=== PATIENT | female | born 1960 | race Caucasian/White ===

== ENCOUNTER 2017-10-13 12:19 | Emergency (ER) | payer BC ==
[~2017-10-13 12:19] MED LIST: BIOTIN2500 MCG; CARAFATE1 G1; CITRACAL D + H1 EACH PO; COLESTIPOL HCL1 GM PO; CRANBERRY200 MG PO; CRANBERRY500 MG PO; CYCLOBENZAPRINE; DIPHENHYDRAMINE25 M2; DIPHENOXYLATE-1 EAC1 PO; ERYTHROMYCIN 250 MG; FOLIC ACID1 MG PO; HYDROCODON-ACE1 EAC9; IMITREX; MAGNESIUM OXID400 MG PO; METHOTREXATE; METOPROLOL TART50 MG PO; NITROFURANTOIN100 M1 PO; PENNSAID 2%; PHENAZOPYRIDIN100 MG PO; THYROXINE 137 MCG; VITAMIN B-121000 MCG PO; VITAMIN B-1250 MG PO; VITAMIN D31000 UNI2 PO; Z ALPRAZOLAM PO; Z.0.DEPO-PROVE150 MG; Z.0.DEXILANT60 MG PO; Z.0.HYDROXYCHLOROQ20 PO; Z.0.KLOR-CON 1010 ME PO; Z.0.LEXAPRO20 MG PO; Z.0.PHENERGAN25 M1 PO; Z.0.PREDNISONE5 MG PO; Z.0.SYNTHROID137 MCG PO; Z.0.ZOFRAN8 MG; ZOFRAN ODT4 MG SL; ZOLPIDEM TARTRAT5 MG PO; [UNRECOGNIZED DRUG - OTHER]; [UNRECOGNIZED DRUG - OTHER]; [UNRECOGNIZED DRUG - OTHER]; [UNRECOGNIZED DRUG - OTHER]
== END 2017-10-13 13:52 | disposition left against medical advice (07) ==
LOC: ER 12:19
DX: Z53.21 Procedure and treatment not carried out due to patient leaving prior to being seen by health care provider (principal)

== ENCOUNTER → 2019-02-04 | Day surgery (SDC) | payer BC ==
[~2019-02-04] MED LIST changes: +CEPHALEXIN250 MG PO; +ERYTHROMYCIN250 MG PO; +FENTANYL CITRATE/PF 100MCG/2 ML INJ ONE; +HEPARIN 500 UNITS/5ML MDV INJ ONE; +HYOSCYAMINE SULFATE 0.5 MG/ML INJ ONE; +LEVOTHYROXINE75 MCG PO; +LIDOCAINE HCL 2% LOCAL INJ 5 ML SDV VIAL INJ ONE; +MAGNESIUM500 MG PO; +MIDAZOLAM HCL 2 MG/2 ML VIAL ONE; +MYRBETRIQ50 MG PO; +PROPOFOL IV EMULSION 10 MG/ML 50 ML VIAL ONE; +VITAMIN C1000 MG PO
--- OUTSIDE RECORDS SUMMARY | 2019-02-04 12:28 | XMS REPORT | Clinical Summary ---
Author Author [facility] Address Unknown Phone Unavailable Care Team Providers Care Global Compensation Manager Name Role Phone Kris Brunner MD PCP Allergies Comments Active Allergy Reactions Severity Noted Date Clarithromycin 10/13/2017 Codeine 10/13/2017 Morphine 10/13/2017 Penicillin 10/13/2017 Metoclopramide Hcl 10/13/2017 Medications End Date Status Medication Sig Dispensed Refills Start Date Active ascorbic acid, vitamin C, Take 1,000 mg 0 (vitamin C) 1000 MG by mouth tablet daily. Active MULTIVIT WITH Take by 0 CALCIUM,IRON,MIN (WOMEN'S mouth. DAILY MULTIVITAMIN ORAL) Active CALCIUM CARBONATE/VITAMIN Take by 0 D3 (CALCIUM 500 + D, D3, mouth. ORAL) Active erythromycin base Take 250 mg 0 (E-MYCIN) 250 MG tablet by mouth 4 (four) times a day. Active hydroxychloroquine Take 200 mg 0 (PLAQUENIL) 200 mg tablet by mouth 2 (two) times a day. Active colestipol (COLESTID) 1 Take 1 g by 0 gram tablet mouth daily. Active predniSONE (DELTASONE) 5 Take 5 mg by 0 mg tablet mouth daily. Active dexlansoprazole Take 60 mg by 0 (DEXILANT) 60 mg capsule mouth 2 (two) times a day. Active levothyroxine (SYNTHROID, Take 137 mcg 0 LEVOXYL) 137 mcg tablet by mouth daily. 2 tablets on Friday and Friday. Active MIRABEGRON ORAL Take 50 mg by 0 mouth daily. Active nitrofurantoin Take 100 mg 0 (MACRODANTIN) 100 MG by mouth capsule daily. Active escitalopram (LEXAPRO) 20 Take 20 mg by 0 MG tablet mouth daily. Active folic acid (FOLVITE) 1 MG Take 1 mg by 0 tablet mouth 2 (two) times a day. Active ALPRAZolam (XANAX) 1 MG Take 1 mg by 0 tablet mouth as needed for anxiety. 1-2 tablets daily as needed. Active metoprolol tartrate Take 50 mg by 0 (LOPRESSOR) 50 mg tablet mouth 2 (two) times a day. Active HYDROcodone-acetaminophen Take 1 tablet 0 (NORCO) 10-325 mg per by mouth tablet every 8 (eight) hours as needed for moderate pain. Active promethazine (PHENERGAN) Take 25 mg by 0 25 MG tablet mouth every 6 (six) hours. Active phenazopyridine Take 100 mg 0 (PYRIDIUM) 100 MG tablet by mouth as needed for bladder spasms. Active diphenhydrAMINE Take 25 mg by 0 (BENADRYL) 25 mg tablet mouth nightly as needed for sleep. Active magnesium gluconate Take 500 mg 0 (MAGONATE) 500 mg tablet by mouth tablet daily. Active diclofenac sodium Apply 0 (PENNSAID) 20 mg/gram topically 2 /actuation(2 %) solution (two) times a in metered-dose pump day. Active biotin 10,000 mcg capsule Take 10,000 0 mcg by mouth nightly. Active THIAMINE HCL (VITAMIN B-1 Take by 0 ORAL) mouth. Active CHOLECALCIFEROL, VITAMIN Take by 0 D3, (VITAMIN D3 ORAL) mouth. Active CYANOCOBALAMIN, VITAMIN Take by mouth 0 B-12, (VITAMIN B-12 ORAL) daily. Active Problems Problem Noted Date Morbid obesity 10/20/2017 Hypokalemia 10/15/2017 Hypocalcemia 10/15/2017 Pulmonary embolism 10/15/2017 Cardiac arrest 10/15/2017 Overview: x3 Cancer 10/15/2017 Overview: breast Intractable vomiting 10/15/2017 Intractable vomiting with nausea 10/13/2017 Encounters Care Team Description Date Type Specialty Hong Lam MD Unspecified fracture of the lower end of right radius, sequela (Primary Dx); Unspecified fracture of lower end of right ulna, sequela 01/28/2019 Transcribe Physical Therapy Orders Hong Lam MD Closed fracture of right distal radius and ulna, sequela (Primary Dx) 11/11/2018 Transcribe Physical Therapy Orders Erika Ball MD Primary osteoarthritis of hand, unspecified laterality (Primary Dx); Finger joint replacement of right hand 09/03/2018 Transcribe Physical Therapy Orders Erika Ball MD Osteoarthritis of carpometacarpal joint (Primary Dx) 07/23/2018 Transcribe Physical Therapy Orders Erika Ball MD Pain of right thumb (Primary Dx) 06/17/2018 Transcribe Physical Therapy Orders Erika Ball MD Fracture of unspecified carpal bone, left wrist, initial encounter for closed fracture (Primary Dx) 04/13/2018 Transcribe Physical Therapy Orders Erika Ball MD Left wrist fracture, closed, initial encounter (Primary Dx) 03/18/2018 Transcribe Physical Therapy Orders after 02/03/2018 Family History Medical History Relation Name Comments Arthritis Brother Arthritis Father Early Father Hypertension Father Stroke Father Arthritis Maternal Grandfather Arthritis Maternal Grandmother Arthritis Mother Depression Mother Diabetes Mother Hearing loss Mother Heart disease Mother Hyperlipidemia Mother Hypertension Mother Miscarriages / Mother Stillbirths Stroke Mother Arthritis Paternal Grandfather Arthritis Paternal Grandmother Cancer Paternal Grandmother Arthritis Sister Depression Sister Relation Name Status Comments Brother Father Maternal Grandfather Maternal Grandmother Mother Paternal Grandfather Paternal Grandmother Sister Social History Date Tobacco Use Types Packs/Day Years Used Never Smoker Smokeless Tobacco: Never Used Alcohol Use Drinks/Week oz/Week Comments No Sex Assigned at Date Recorded Not on file Industry Job Start Date Occupation Not on file Not on file Not on file Travel End Travel History Travel Start No recent travel history available. Last Filed Vital Signs Not on file Plan of Treatment Care Team Description Date Type Specialty Hong Lam MD [address] [place] [address] [id number] Benson Childs OT 02/05/2019 Office Visit Physical Therapy Health Maintenance Due Date Last Done Comments CERVICAL CANCER SCREENING 1982 BREAST CANCER SCREENING 2011 COLON CANCER SCREENING 2011 SHINGLES VACCINES (#1) 2011 INFLUENZA VACCINE 04/29/2019 Results Not on fileafter 02/03/2018 Insurance Payer Benefit Subscriber ID Type Phone Address Plan / Group BCBS ANTHEM xxxxxxxxxxxx PPO BLUE CROSS Advance Directives Patient has advance care planning documents on file. For more information, sally duran contact: Aaron Ortiz [address] [place] [address]
--- OUTSIDE RECORDS SUMMARY | 2019-02-04 12:30 | XMS REPORT | CCD ---
Author Author Auto Generated Organization [facility] Address Unknown Phone Unavailable Care Team Providers Care Recreation Program Specialist Name Role Phone Peggy Maria CP Allergies, Adverse Reactions, Alerts Substance Reaction Status Biaxin Active codeine Active morphine Active Paper Tape Active penicillins Active Reglan Active Problem List Condition Effective Dates Status Acute renal failure Active Alteration in comfort: chronic pain Active Anemia Active Back pain Active Debility Active Hemiparesis Active Hypokalemia Active Hypothyroidism Active Impaired sensation Active Itching Active Lupus Active Malnutrition Active Nausea and vomiting Active Obesity Active Pulmonary embolus Active Renal insufficiency Active Respiratory failure Active Vaginal fistula Active VRE1 Active 1Problem added by Discern Expert. Vital Signs Most recent to oldest [Reference Range]: 1 2 Systolic Blood Pressure [90-140 mmHg] 113 mmHg (03/18/2012 13:16:00) 128 mmHg (03/02/2012 11:48:00) Diastolic Blood Pressure [60-90 mmHg] 56 mmHg *LOW* (03/18/2012 13:16:00) 78 mmHg (03/02/2012 11:48:00) Peripheral Pulse Rate [60-100 bpm] 59 bpm *LOW* (03/18/2012 13:16:00) 80 bpm (03/02/2012 11:48:00)
--- OUTSIDE RECORDS SUMMARY | 2019-02-04 12:30 | XMS REPORT | CCD ---
Author Author Auto Generated Organization [facility] Address Unknown Phone Unavailable Care Team Providers Care Manager Strategy & Account Name Role Phone Peggy Maria CP Allergies, [...] recent to oldest [Reference Range]: 1 2 3 Systolic Blood Pressure [90-140 mmHg] 133 mmHg (01/13/2012 15:02:00) 122 mmHg (01/08/2012 12:27:00) 129 mmHg (12/30/2011 12:38:00) Diastolic Blood Pressure [60-90 mmHg] 76 mmHg (01/13/2012 15:02:00) 72 mmHg (01/08/2012 12:27:00) 81 mmHg (12/30/2011 12:38:00) Peripheral Pulse Rate [60-100 bpm] 63 bpm (01/13/2012 15:02:00) 69 bpm (01/08/2012 12:27:00) 65 bpm (12/30/2011 12:38:00)
--- OUTSIDE RECORDS SUMMARY | 2019-02-04 12:30 | XMS REPORT | CCD ---
Author Author Auto Generated Organization [facility] Address Unknown Phone Unavailable Care Team Providers Care Scientific Systems Analyst Name Role Phone Peggy Maria CP Allergies, [...] 1 2 Systolic Blood Pressure [90-140 mmHg] 126 mmHg (02/03/2012 12:05:00) 127 mmHg (01/22/2012 10:34:00) Diastolic Blood Pressure [60-90 mmHg] 71 mmHg (02/03/2012 12:05:00) 72 mmHg (01/22/2012 10:34:00) Peripheral Pulse Rate [60-100 bpm] 64 bpm (02/03/2012 12:05:00) 79 bpm (01/22/2012 10:34:00)
--- OUTSIDE RECORDS SUMMARY | 2019-02-04 12:30 | XMS REPORT | CCD ---
Author Author Auto Generated Organization [facility] Address Unknown Phone Unavailable Care Team Providers Care Inspector And Clipper Name Role Phone Kvng Perry RP Allergies, Adverse Reactions, Alerts Substance Reaction Status [...]
--- OUTSIDE RECORDS SUMMARY | 2019-02-04 12:30 | XMS REPORT | CCD ---
Author Author Auto Generated Organization [facility] Address Unknown Phone Unavailable Care Team Providers Care Fishing Hand Name Role Phone Peggy Maria CP Allergies, [...] 1 2 Systolic Blood Pressure [90-140 mmHg] 110 mmHg (11/19/2011 13:21:00) 118 mmHg (11/19/2011 10:03:00) Diastolic Blood Pressure [60-90 mmHg] 72 mmHg (11/19/2011 13:21:00) 75 mmHg (11/19/2011 10:03:00) Peripheral Pulse Rate [60-100 bpm] 89 bpm (11/19/2011 13:21:00) 86 bpm (11/19/2011 10:03:00) Results URINALYSIS Most recent to oldest [Reference Range]: 1 UA Turbidity [Clear] Clear (11/15/2011 11:05:00) UA Color [Yellow] Yellow *NA* (11/15/2011 11:05:00) UA pH [5.0-8.0] 5.0 (11/15/2011 11:05:00) UA Spec Grav [<=1.030] 1.009 (11/15/2011 11:05:00) UA Glucose [Negative mg/dL] Negative mg/dL *NA* (11/15/2011 11:05:00) UA Blood [Negative] Trace *ABN* (11/15/2011 11:05:00) UA Ketones [Negative mg/dL] Negative mg/dL *NA* (11/15/2011 11:05:00) UA Protein [Negative mg/dL] Negative mg/dL (11/15/2011 11:05:00) UA Urobilinogen [0.1-1.0 mg/dL] <=1.0 mg/dL *NA* (11/15/2011 11:05:00) UA Bili [Negative] Negative *NA* (11/15/2011 11:05:00) UA Leuk Est [Negative] Negative (11/15/2011 11:05:00) UA Nitrite [Negative] Negative (11/15/2011 11:05:00) UA WBC [0-5 /HPF] 2 /HPF (11/15/2011 11:05:00) UA RBC [0-2 /HPF] 1 /HPF (11/15/2011 11:05:00) UA Sq Epi [Few /LPF] Occasional /LPF *NA* (11/15/2011 11:05:00) UA Mucus [None Seen /LPF] Few /LPF *NA* (11/15/2011 11:05:00)
--- OUTSIDE RECORDS SUMMARY | 2019-02-04 12:30 | XMS REPORT | CCD ---
Author Author Auto Generated Organization [facility] Address Unknown Phone Unavailable Care Team Providers Care Hebrew Teacher Name Role Phone Genevieve Carrasco RP Allergies, Adverse Reactions, Alerts Substance Reaction [...] VRE1 Active 1Problem added by Discern Expert. Medications Medication Instructions Start Date End Date Status Benadryl 25 mg oral PO, BID, Substitution Allowed, prn 01/27/2012 Ordered capsule prn oxaprozin 600 mg PO, BID, Substitution Allowed 01/27/2012 Ordered oral tablet multivitamin with PO, Daily, Substitution Allowed, 01/27/2012 Ordered minerals Multiple Maintenance Vitamins with Zinc oral capsule clobetasol topical Substitution Allowed, to face BID 01/27/2012 Ordered 0.05% cream to face BID diphenoxylate Substitution Allowed, 1 tablet QID 01/27/2012 Ordered for diarrhea PRN 1 tablet QID for diarrhea PRN Dexilant 60 mg oral PO, BID, Substitution Allowed 01/27/2012 Ordered delayed release capsule nystatin topical Substitution Allowed, as needed 01/27/2012 Ordered 100,000 units/g as needed cream carisoprodol 350 mg PO, TID, Substitution Allowed 01/27/2012 Ordered oral tablet OxyContin 10 mg oral 10 mg, 1 tab, PO, TID, Substitution 01/27/2012 Ordered tablet, extended Allowed, ERTAB release folic acid 1 mg oral PO, Daily, Substitution Allowed 01/27/2012 Ordered tablet Vitamin B12 Substitution Allowed, self admin. 01/27/2012 Ordered injections SC weekly of 1ml self admin. injections SC weekly of 1ml Estrace Substitution Allowed, TID as needed 01/27/2012 Ordered TID as needed methotrexate Substitution Allowed, 0.03 ml 01/27/2012 Ordered weekly injection SC, pt. self administers 0.03 ml weekly injection SC, pt. self administers Vital Signs Most recent to oldest [Reference Range]: 1 Height 165.10 cm (01/27/2012 14:51:00) Systolic Blood Pressure [90-140 mmHg] 110 mmHg (01/27/2012 14:51:00) Diastolic Blood Pressure [60-90 mmHg] 68 mmHg (01/27/2012 14:51:00) Respiratory Rate [14-20 BRMIN] 18 BRMIN (01/27/2012 14:51:00) Peripheral Pulse Rate [60-100 bpm] 81 bpm (01/27/2012 14:51:00) Weight 104.545 kg (01/27/2012 14:51:00)
--- OUTSIDE RECORDS SUMMARY | 2019-02-04 12:30 | XMS REPORT ---
Author Amadeo Mcdaniel [facility] [employer] Address Unknown Phone Unavailable Care Team Providers Care Manufacturing Laborer Name Role Phone Amadeo [place] CP Unavailable Allergies, Adverse Reactions, Alerts Substance Reaction Event Type paper tape Info Not Available Non Drug Allergy penicillin Info Not Available Non Drug Allergy morphine Info Not Available Non Drug Allergy codiene Info Not Available Non Drug Allergy biaxin Info Not Available Non Drug Allergy Problems Problem Type Condition Code Onset Dates Condition Status Assessment Age-related osteoporosis without current pathological fracture M81.0 Active Assessment Lupus M32.9 Active Assessment Rheumatoid arthritis of multiple sites with negative rheumatoid factor M06.09 Active Assessment Encounter for long-term (current) use of other high-risk medications Z79.899 Active Problem Polyarthritis M13.0 Active Problem Left hip pain M25.552 Active Problem Rheumatoid arthritis of multiple sites with negative rheumatoid factor M06.09 Active Problem Encounter for long-term (current) use of other high-risk medications Z79.899 Active Problem Vitamin D deficiency E55.9 Active Problem Age-related osteoporosis without current pathological fracture M81.0 Active Problem Lupus M32.9 Active Medications Medication Code System Code Instructions Start Date End Date Status Dosage PredniSONE [facility] 68532382331 5MG Orally once a day Active take 1 tablet daily with food or milk Macrobid [facility] [address]-87 100 MG Orally once a day Active 1 capsule with food Erythromycin Ethylsuccinate [facility] [address]-86 400 MG Orally four times a day Active 1 tablet Potassium Chloride CR ND 0 10 MEQ Orally every day Active 2 tablets Vitamin B-[address] [facility] [address]-74 250 MG Orally Active as directed Citracal + D [facility] [address]-85 315-200 MG-UNIT Orally Twice a day Active 1 tablet with meals Prolia [facility] [address]-46 60 MG/ML Subcutaneous Q 6 MONTHS Active 1 injection Nystatin [facility] [address]-40 659946 UNIT/GM Externally as needed Active 1 application to affected area Folic Acid [facility] 33941048127 1MG Orally twice a day Jun 14, 2017 Active 1 tablet Lexapro [facility] [address]-80 20 MG Orally Once a day Active 1 tab Xanax [facility] [address]-74 1 MG Orally once a day Active 1 tablet Vitamin B-[address] [facility] [address]-34 1000 MCG Orally Once a day Active 1 tablet Vitamin C [facility] 74956-96156 500 MG Orally once a day Active as directed Magnesium [facility] [address]47-[address]244 400 MG Orally Active as directed Zofran [facility] [address]-27 Orally as needed Active 1 tablet Madras [facility] [address]-82 10-325 MG Orally every 6 hrs Active 1 tablet as needed Vitamin D [facility] [address]-99 1000 UNIT Orally Once a day Active 1 tablet Clobetasol Propionate [facility] [address]-46 0.05 % Externally Twice a day Jun 14, 2017 Active 1 application to affected area Hydroxychloroquine Sulfate [facility] 37739001286 200 MG Orally twice a day Active take 1 tablet twice a day Dexilant [facility] [address]-35 60 MG Orally twice a day Active 1 capsule Pennsaid [facility] [address]-90 2 % Transdermal Twice a day December 31, 2016 Apr 30, 2017 Active 2 applications to affected area Benadryl [facility] [address]-78 25 MG Orally as needed Active 2 tablets Synthroid [facility] [address]-53 137 MCG Orally Once a day Active 1 tablet every morning on an empty stomach Promethazine HCl [facility] [address]-62 25 MG Orally q6hrs prn Active 1 tablet Metoprolol Tartrate [facility] [address]-27 50 MG Orally twice a day Active 1 tablet Vital Signs Date/Time: March 17, 2017 BMI 44.97 Index Weight 262 lbs Height 64 in Temperature 98.3 F Cardiac Monitoring Heart Rate 80 /min Blood Pressure Diastolic 72 mm Hg Blood Pressure Systolic 112 mm Hg Results No Known Results Summary Purpose eClinicalWorks Submission
--- OUTSIDE RECORDS SUMMARY | 2019-02-04 12:30 | XMS REPORT ---
Author Author Amadeo [place] [facility] [employer] Address Unknown Phone Unavailable Care Team Providers Care Customs Compliance Manager Name Role Phone Amadeo [place] CP Unavailable Allergies, Adverse Reactions, Alerts Substance Reaction Event Type penicillin Info Not Available Non Drug Allergy morphine Info Not Available Non Drug Allergy codiene Info Not Available Non Drug Allergy biaxin Info Not Available Non Drug Allergy paper tape Info Not Available Non Drug Allergy Problems Problem Type Condition Code Onset Dates Condition Status Assessment Raynauds phenomenon without gangrene I73.00 Active Assessment Lupus M32.9 Active Assessment Age-related osteoporosis without current pathological fracture M81.0 Active Assessment Encounter for long-term (current) use of other high-risk medications Z79.899 Active Assessment Rheumatoid arthritis of multiple sites with negative rheumatoid factor M06.09 Active Problem Polyarthritis M13.0 Active Problem Left [...] Instructions Start Date End Date Status Dosage Forteo [facility] [address]-10 600 MCG/2.4ML Subcutaneous Once a day Jul 17, 2017 January 13, 2018 Active 0.08 ml Vitamin C [facility] [address]846-77507 500 MG Orally once a day Active as directed Vitamin B-12 [facility] [address]-16 1000 MCG Orally Once a day Active 1 tablet Lexapro [facility] [address]-29 20 MG Orally Once a day Active 1 tab Potassium Chloride CR [facility] 0 10 MEQ Orally every day Active 2 tablets Macrobid [facility] [address]-40 100 MG Orally once a day Active 1 capsule with food Dexilant [facility] [address]-79 60 MG Orally twice a day Active 1 capsule Citracal + D [facility] [address]-65 315-200 MG-UNIT Orally Twice a day Active 1 tablet with meals Benadryl [facility] [address]-99 25 MG Orally as needed Active 2 tablets Pyridium [facility] [address]-26 100 MG Orally QID Active 1 tablet Prolia [facility] [address]-62 60 MG/ML Subcutaneous Q 6 MONTHS Active 1 injection PredniSONE [facility] 21125577653 5MG Orally once a day Active take 1 tablet daily with food or milk Zofran [facility] [address]-96 Orally as needed Active 1 tablet Randall [facility] [address]-62 10-325 MG Orally every 6 hrs Active 1 tablet as needed Vitamin B-1 [facility] [address]-11 250 MG Orally Active as directed Magnesium [facility] 46[address]-24150 400 MG Orally Active as directed Promethazine HCl [facility] [address]-70 25 MG Orally q6hrs prn Active 1 tablet Nystatin [facility] [address]-73 140335 UNIT/GM Externally as needed Active 1 application to affected area Metoprolol Tartrate [facility] [address]-11 50 MG Orally twice a day Active 1 tablet Xanax [facility] [address]-47 1 MG Orally once a day Active 1 tablet Cipro [facility] [address]-17 500 MG Orally Twice a day Active 1 tablet Vitamin D [facility] [address]-64 1000 UNIT Orally Once a day Active 1 tablet Synthroid [facility] [address]-64 137 MCG Orally Once a day Active 1 tablet every morning on an empty stomach Erythromycin Ethylsuccinate [facility] [address]-63 400 MG Orally four times a day Active 1 tablet Pennsaid [facility] [address]-44 2 % Transdermal Twice a day April 22, 2017 Active 2 applications to affected area Folic Acid [facility] [address]-80 1 MG Orally Once a day January 13, 2018 Active 1 tablet Hydroxychloroquine Sulfate [facility] [address]-34 200 MG Orally twice a day January 13, 2018 Active 1 tablet with food or milk Vital Signs Date/Time: Jul 17, 2017 BMI 46.01 Index Weight 268.1 lbs Height 64 in Temperature 99.1 F Cardiac Monitoring Heart Rate 72 /min Blood Pressure Diastolic 80 mm Hg Blood Pressure Systolic 124 mm Hg Results No Known Results Summary Purpose eClinicalWorks Submission
--- OUTSIDE RECORDS SUMMARY | 2019-02-04 12:30 | XMS REPORT | CCD ---
Author Author Auto Generated Organization [facility] Address Unknown Phone Unavailable Care Team Providers Care Production Control Clerk Name Role Phone Michele Pascual CP Allergies, Adverse Reactions, Alerts Substance Reaction Status Biaxin Active codeine Active morphine Active Paper Tape Active penicillins Active Reglan Active Problem List Condition Effective Dates Status Acute renal failure Active Alteration in comfort: chronic pain Active Anemia Active Back pain Active Debility Active Hemiparesis Active Hypokalemia Active Hypothyroidism Active Impaired sensation Active Itching Active Lupus Active Lupus Resolved Malnutrition Active Nausea and vomiting Active Obesity Active Pulmonary embolus Active Renal insufficiency Active Respiratory failure Active Vaginal fistula Active VRE1 Active 1Problem added by Discern Expert. Medications Medication Instructions Start Date End Date Status hydromorphone 1.5 mg, Route: IVP, ONCE, Dosing 08/25/2013 08/25/2013 Completed Weight 122.727, kg, Priority: STAT, Start date: 08/25/13 4:29:00, Stop date: 08/25/13 4:29:00 ondansetron 4 mg, Route: IVP, Drug form: INJ, 08/25/2013 08/25/2013 Completed ONCE, Dosing Weight 122.727, kg, Priority: STAT, Start date: 08/25/13 4:29:00, Stop date: 08/25/13 4:29:00 Zofran 4 mg, Route: IVP, Drug form: INJ, 08/25/2013 08/25/2013 Completed ONCE, Dosing Weight 122.727, kg, Priority: STAT, Start date: 08/25/13 4:28:00, Stop date: 08/25/13 4:28:00 Dilaudid 1.5 mg, Route: IV, ONCE, Dosing 08/25/2013 08/25/2013 Completed Weight 122.727, kg, Start date: 08/25/13 4:28:00, Stop date: 08/25/13 4:28:00 ibuprofen 600 mg 600 mg, PO, Q6H, PRN, Take with 08/25/2013 09/02/2013 Ordered oral tablet food, 30 tab, Pain, Substitution Allowed Take with food [place] 10/325 oral 1-2 tab, PO, Q4-6H, PRN, 30 tab, 08/25/2013 08/30/2013 Ordered tablet Pain, Substitution Allowed, Maintenance Dilaudid 1 mg, Route: IV, ONCE, Dosing 08/25/2013 08/25/2013 Completed Weight 122.727, kg, Start date: 08/25/13 5:30:00, Stop date: 08/25/13 5:30:00 Vital Signs Most recent to oldest [Reference Range]: 1 2 Height 165.1 cm (08/25/2013 04:05:00) Temperature Oral [96.4-99.1 DegF] 97.3 DegF (08/25/2013 06:35:00) 97.8 DegF (08/25/2013 04:05:00) Systolic Blood Pressure [90-140 mmHg] 105 mmHg (08/25/2013 06:35:00) 124 mmHg (08/25/2013 04:05:00) Diastolic Blood Pressure [60-90 mmHg] 78 mmHg (08/25/2013 06:35:00) 81 mmHg (08/25/2013 04:05:00) Respiratory Rate [14-20 BRMIN] 18 BRMIN (08/25/2013 06:35:00) 20 BRMIN (08/25/2013 04:05:00) Peripheral Pulse Rate [60-100 bpm] 87 bpm (08/25/2013 06:35:00) 117 bpm *HI* (08/25/2013 04:05:00) Weight 122.727 kg (08/25/2013 04:05:00)
--- OUTSIDE RECORDS SUMMARY | 2019-02-04 12:30 | XMS REPORT | Continuity of Care Document ---
Author Author [facility] Interface Address Unknown Phone Unavailable Problems Problem Status Onset Date Classification Date Reported Comments Source FALL Active 08/25/2013 [facility] F/U Active 01/27/2012 [facility] RECTAL CONTRAST ONLY, NO IVDX: VAGINAL FISTULA Active 11/21/2011 [facility] POST ADENIKE FU Active 11/20/2011 [facility] BILAL PE, [place] X3, RETROPERITONEAL BLEED Active 09/29/2000 [facility] Acute renal failure Active Problem 08/27/2013 [facility], [facility] Back pain Active Problem 08/27/2013 [facility] Hemiparesis Active Problem 08/27/2013 [facility] Hypokalemia Active Problem 08/27/2013 [facility], [facility] Pulmonary embolus Active Problem 08/27/2013 [facility] Renal insufficiency Active Problem 08/27/2013 [facility] Respiratory failure Active Problem 08/27/2013 [facility], [facility] Vaginal fistula Active Problem 08/27/2013 [facility] Alteration in comfort: chronic pain Active Problem 04/02/2012 [facility] Anemia Active Problem 04/02/2012 [facility] Debility Active Problem 04/02/2012 [facility] Hypothyroidism Active Problem 04/02/2012 [facility] Impaired sensation Active Problem 02/21/2012 [facility] Itching Active Problem 04/02/2012 [facility] Malnutrition Active Problem 04/02/2012 [facility] Nausea and vomiting Active Problem 04/02/2012 [facility] Obesity Active Problem 04/02/2012 [facility] 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 [facility], [facility] Alteration in comfort: chronic pain Active Problem 08/27/2013 [facility] Anemia Active Problem 08/27/2013 [facility] Debility Active Problem 08/27/2013 [facility] Hypothyroidism Active Problem 08/27/2013 [facility] Impaired sensation Active Problem 08/27/2013 [facility] Itching Active Problem 08/27/2013 [place] Lupus Resolved Problem 08/27/2013 [facility] Malnutrition Active Problem 08/27/2013 [facility] Nausea and vomiting Active Problem 08/27/2013 [facility] Obesity Active Problem 08/27/2013 [facility] 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 [place] Impaired sensation Active Problem 04/02/2012 [facility] Polyarthritis Active Problem 12/24/2018 Rashaad Curtis Left hip pain Active Problem 12/24/2018 Rashaad Curtis Rheumatoid arthritis of multiple sites with negative rheumatoid factor Active Problem 12/24/2018 Rashaad Curtis Encounter for long-term use of other high-risk medications Active Problem 12/24/2018 Rashaad Curtis Vitamin D deficiency Active Problem 12/24/2018 Rashaad Curtis Age-related osteoporosis without current pathological fracture Active Diagnosis 12/24/2018 Rashaad Curtis Lupus Active Problem 12/24/2018 Rashaad Curtis Raynauds phenomenon without gangrene Active Problem 12/24/2018 Rashaad Curtis Long-term use of other medications - High Risk Active Problem 05/24/2017 Rashaad Curtis Osteoarthrosis, multiple sites Active Problem 11/07/2015 Rashaad Curtis Unspecified inflammatory polyarthropathy Active Problem 11/07/2015 Rashaad Curtis Nausea with vomiting Active Problem 11/07/2015 Rashaad Curtis Psoriasis Active Problem 11/07/2015 Rashaad Curtis Lupus Active Problem 11/07/2015 [facility], [facility],Rashaad Curtis Polyarthritis, multiple sites Active Problem 11/07/2015 Rashaad Curtis Osteoporosis, postmenopausal Active Problem 11/07/2015 Rashaad Curtis Malignant neoplasm of other specified sites of female breast Active Diagnosis 01/18/2016 Rashaad Curtis Anxiety Active Problem 12/24/2018 Rashaad Curtis Xanax use disorder, mild Active Problem 12/24/2018 Rashaad Curtis Neck pain Active Problem 12/24/2018 Rashaad Curtis Sleep disorder Active Problem 12/24/2018 Rashaad Curtis Hypothyroidism, unspecified type Active Problem 12/24/2018 Rashaad Careyer Primary insomnia Active Problem 12/24/2018 Rashaad Curtis Unspecified disorder of thyroid Active Diagnosis 05/12/2014 Rashaad Curtis Other malaise and fatigue Active Diagnosis 05/12/2014 Rashaad Curtis Pain in joint, ankle and foot Active Diagnosis 08/04/2014 Rashaad Curtis Unspecified vitamin D deficiency Active Diagnosis 10/06/2014 Rashaad Curtis Osteoporosis without pathological fracture Active Diagnosis 09/12/2015 Rashaad Curtis Lumbosacral spondylosis without myelopathy Active Problem 05/24/2017 Rashaad Curtis Pain in joint, lower leg Active Problem 05/24/2017 Rashaad Curtis Osteoarthritis of left hip Active Problem 04/25/2018 Rashaad Curtis Spondylosis without myelopathy or radiculopathy, lumbosacral region Active Diagnosis 04/25/2018 Rashaad Curtis Carpal tunnel syndrome, right upper limb Active Problem 04/25/2018 Rashaad Curtis Neoplasm related pain (chronic) Active Problem 04/25/2018 Rashaad Curtis Lumbar spondylosis Active Problem 04/25/2018 Rashaad Curtis Pain in left knee Active Problem 04/25/2018 Rashaad Curtis Other oil heaterman drug therapy Active Problem 04/25/2018 Rashaad Curtis Neoplasm related pain (chronic) Active Diagnosis 05/24/2017 Rashaad Curtis Carpal tunnel syndrome Active Diagnosis 05/24/2017 Rashaad Curtis Pain in left hip Active Problem 04/25/2018 Rashaad Careyer Rheumatoid arthritis involving ankle, unspecified laterality, unspecified rheumatoid factor presence Active Problem 04/25/2018 Rashaad Careyer Disorders of sacrum Active Problem 04/25/2018 Rashaad Careyer Cervicalgia Active Problem 04/25/2018 Rashaad Ever Medications Medication Details Route Status Patient Instructions Ordering Provider Order Date Source PredniSONE 1 tablet with food or milk Orally Active 5MG Orally once a day [place] 11/06/2018 Rashaad Curtis Folic Acid 1 tablet Orally Active 1 MG Orally Once a day Curtis 01/13/2018 Rashaad Curtis Hydroxychloroquine Sulfate 1 tablet with food or milk Orally Active 200 MG Orally twice a day Curtis 01/13/2018 Rashaad Curtis Folic Acid 1 tablet Orally Active 1 MG Orally Once a day [place] 11/25/2017 Rashaad Curtis Prolia 1 injection Subcutaneous Active 60 MG/ML Subcutaneous Q 6 MONTHS Curtis 11/21/2017 Rashaad Curtis Hydroxychloroquine Sulfate 1 tablet with food or milk Orally Active 200 MG Orally twice a day [place] 07/28/2017 Rashaad Curtis Forteo 0.08 ml Subcutaneous Active 600 MCG/2.4ML Subcutaneous Once a day [place] 07/17/2017 Rashaad Curtis Clobetasol Propionate 1 application to affected area Externally Active 0.05 % Externally as needed [facility] 06/14/2017 Rashaad Curtis Folic Acid 1 tablet Orally Active 1MG Orally twice a day [place] 06/14/2017 Rashaad Curtis PredniSONE take 1 tablet daily with food or milk Orally Active 5MG Orally once a day [place] 06/14/2017 Rashaad Curtis Hydroxychloroquine Sulfate take 1 tablet twice a day Orally Active 200 MG Orally twice a day [place] 06/14/2017 Rashaad Curtis Vitamin D (Ergocalciferol) 1 capsule Orally Active 18252 UNIT Orally Once a week [place] 06/09/2017 Rashaad Curtis Lidocaine 1 patch to skin remove after 12 hours Externally Active 5 % Externally Once a day [facility] 06/03/2017 Rashaad Curtis Pennsaid 2 applications to affected area Transdermal Active 2 % Transdermal Twice a day [place] 04/22/2017 Rashaad Curtis Pennsaid 2 applications to affected area Transdermal Active 2 % Transdermal Twice a day [facility] 04/22/2017 Rashaad Curtis [place] 1 tablet as needed Orally Active 10-325 MG Orally QID [facility] 03/28/2017 Rashaad Curtis [place] 1 tablet as needed Orally Active 10-325 MG Orally TID [facility] 02/28/2017 Rashaad Curtis Pennsaid 2 applications to affected area Transdermal Active 2 % Transdermal Twice a day [place] 12/31/2016 Rashaad Curtis Custom Lift Chair as directed NA Active [facility] 12/30/2016 Rashaad Curtis Diclofenac Sodium 1 tablet Orally No Longer Active 50 mg Orally Once a day [place] 06/24/2016 Rashaad Curtis Nystatin 1 application to affected area Externally Active 874808 UNIT/GM Externally as needed [place] 05/23/2016 Rashaad Curtis Diphenoxylate-Atropine 1 tablet as needed Orally Active 2.5-0.025 MG Orally Four times a day [place] 05/23/2016 Rashaad Curtis Vitamin D (Ergocalciferol) 1 capsule Orally Active 26791 UNIT Orally Once a week [place] 03/04/2016 Rashaad Curtis Vitamin D (Ergocalciferol) 1 capsule Orally Active 85203 UNIT Orally Once a week [place] 03/04/2016 Rashaad Curtis Lidoderm 1 patch to intact skin remove after 12 hours Externally Active 5 % Externally Once a day [place] 04/24/2014 Rashaad Curtis [place] 1 tablet as needed Orally Active 10-325 MG Orally every 8 hrs [place] 01/24/2014 Rashaad Curtis ibuprofen 600 mg oral tablet 600 mg, PO, Q6H, PRN, Take with food, 30 tab, Pain, Substitution AllowedTake with food Active [place] 08/25/2013 [facility] [place] 10/325 oral tablet 1-2 tab, PO, Q4-6H, PRN, 30 tab, Pain, Substitution Allowed, Maintenance Active [place] 08/25/2013 [facility] Dilaudid 1 mg, Route: IV, ONCE, Dosing Weight 122.727, kg, Start date: 08/25/13 5:30:00, Stop date: 08/25/13 5:30:00 Inactive [place] 08/25/2013 [facility] hydromorphone 1.5 mg, Route: IVP, ONCE, Dosing Weight 122.727, kg, Priority: STAT, Start date: 08/25/13 4:29:00, Stop date: 08/25/13 4:29:00 Inactive [place] 08/25/2013 [facility] ondansetron 4 mg, Route: IVP, Drug form: INJ, ONCE, Dosing Weight 122.727, kg, Priority: STAT, Start date: 08/25/13 4:29:00, Stop date: 08/25/13 4:29:00 Inactive [place] 08/25/2013 [facility] Zofran 4 mg, Route: IVP, Drug form: INJ, ONCE, Dosing Weight 122.727, kg, Priority: STAT, Start date: 08/25/13 4:28:00, Stop date: 08/25/13 4:28:00 Inactive [place] 08/25/2013 [facility] Dilaudid 1.5 mg, Route: IV, ONCE, Dosing Weight 122.727, kg, Start date: 08/25/13 4:28:00, Stop date: 08/25/13 4:28:00 Inactive [place] 08/25/2013 [facility] Vitamin B12 Substitution Allowed, self admin. injections SC weekly of 1mlself admin. injections [place] weekly of 1ml Active 01/27/2012 [facility] methotrexate Substitution Allowed, 0.03 ml weekly injection SC, pt. self administers0.03 ml weekly injection SC, pt. self administers Active 01/27/2012 [facility] nystatin topical 100,000 units/g cream Substitution Allowed, as neededas needed Active 01/27/2012 [facility] carisoprodol 350 mg oral tablet PO, TID, Substitution Allowed PO Active 01/27/2012 [facility] OxyContin 10 mg oral tablet, extended release 10 mg, 1 tab, PO, TID, Substitution Allowed, ERTAB PO Active 01/27/2012 [facility] folic acid 1 mg oral tablet PO, Daily, Substitution Allowed PO Active 01/27/2012 [facility] Estrace Substitution Allowed, TID as neededTID as needed Active 01/27/2012 [facility] Benadryl 25 mg oral capsule PO, BID, Substitution Allowed, prnprn PO Active 01/27/2012 [facility] oxaprozin 600 mg oral tablet PO, BID, Substitution Allowed PO Active 01/27/2012 [facility] multivitamin with minerals Multiple Vitamins with Zinc oral capsule PO, Daily, Substitution Allowed, Maintenance PO Active 01/27/2012 [facility] clobetasol topical 0.05% cream Substitution Allowed, to face BIDto face BID Active 01/27/2012 [facility] diphenoxylate Substitution Allowed, 1 tablet QID for diarrhea PRN1 tablet QID for diarrhea PRN Active 01/27/2012 [facility] Dexilant 60 mg oral delayed release capsule PO, BID, Substitution Allowed PO Active 01/27/2012 [facility] Prolia 1 injection Subcutaneous Active 60 MG/ML Subcutaneous Q 6 MONTHS Ever Curtis Vitamin B-12 1 tablet Orally Active 1000 MCG Orally Once a day Ever Curtis Vitamin B-1 as directed Orally Active 250 MG Orally Ever Curtis Citracal + D 1 tablet with meals Orally Active 315-200 MG-UNIT Orally Twice a day Ever Curtis Macrobid 1 capsule with food Orally Active 100 MG Orally once a day Ever Curtis Hydroxychloroquine Sulfate 1 tablet with food or milk Orally Active 200MG Orally Twice a day [place] Curtis Potassium Chloride CR 2 tablets Orally Active 10 MEQ Orally every day [place] Curtis Magnesium as directed Orally Active 400 MG Orally Ever Curtis Vitamin D 1 tablet Orally Active 1000 UNIT Orally Once a day Ever Curtis Promethazine HCl 1 tablet Orally Active 25 MG Orally q6hrs prn [place] Rashaad Curtis PredniSONE take 1 tablet daily with food or milk Orally Active 5MG Orally once a day [place] Rashaad Curtis Zofran 1 tablet Orally Active Orally as needed [place] Rashaad Curtis Metoprolol Tartrate 1 tablet Orally Active 50 MG Orally twice a day [place] Rashaad Curtis Benadryl 2 tablets Orally Active 25 MG Orally as needed [place] Rashaad Careyer Erythromycin Ethylsuccinate 1 tablet Orally Active 400 MG Orally four times a day [place] Rashaad Curtis Folic Acid TAKE 1 TABLET TWICE A DAY NA Active 1MG [facility] Rashaad Curtis Vitamin C as directed Orally Active 500 MG Orally once a day [place] Rashaad Curtis Xanax 1 tablet Orally Active 1 MG Orally once a day [place] Rashaad Curtis Dexilant 1 capsule Orally Active 60 MG Orally twice a day [place] Rashaad Curtis Nystatin 1 application to affected area Externally Active 013600 UNIT/GM Externally as needed [place] Rashaad Curtis Lexapro 1 tab Orally Active 20 MG Orally Once a day [place] Rashaad Curtis Synthroid 1 tablet every morning on an empty stomach Orally Active 137 MCG Orally Once a day [place] Rashaad Curtis [place] 1 tablet as needed Orally Active 10-325 MG Orally every 6 hrs [place] Rashaad Curtis Diphenoxylate-Atropine 1 tablet as needed Orally Active 2.5-0.025 MG Orally as needed [place] Rashaad Curtis Pyridium 1 tablet Orally Active 100 MG Orally QID [place] Rashaad Curtis Cipro 1 tablet Orally Active 500 MG Orally Twice a day [place] Rashaad Curtis Folic Acid 1 tablet Orally Active 1 MG Orally Once a day [facility] Rashaad Curtis Lexapro 1 tablet Orally Active 20 MG Orally Once a day [place] Rashaad Curtis [place] 1 tablet as needed Orally Active 10-325 MG Orally every 6 hrs [place] Rashaad Curtis Vitamin B-1 as directed Orally Active 250 MG Orally [facility] Rashaad Curtis Synthroid 1 tablet every morning on an empty stomach Orally Active 175 MCG Orally Once a day [facility] Rashaad Curtis Promethazine HCl 1 tablet Orally Active 25 MG Orally q6hrs prn [facility] Rashaad Curtis Xanax 1-2 tablets Orally Active 1 MG Orally once a day [facility] Rashaad Curtis Prolia 1 injection Subcutaneous Active 60 MG/ML Subcutaneous Q 6 MONTHS [place] Rashaad Curtis Vitamin B-12 1 tablet Orally Active 1000 MCG Orally Once a day [place] Rashaad Curtis Benadryl 2 tablets Orally Active 25 MG Orally as needed [place] Rashaad Curtis Metoprolol Tartrate 1 tablet Orally Active 50 MG Orally twice a day [place] Rashaad Curtis Erythromycin Ethylsuccinate 1 tablet Orally Active 400 MG Orally four times a day [place] Rashaad Curtis Nystatin 1 application to affected area Externally Active 716652 UNIT/GM Externally as needed [place] Rashaad Curtis Dexilant 1 capsule Orally Active 60 MG Orally twice a day [place] Rashaad Curtis Macrobid 1 capsule with food Orally Active 100 MG Orally once a day Ever Curtis Zofran 1 tablet Orally Active Orally as needed [place] Rsahaad Curtis Pyridium 1 tablet Orally Active 100 MG Orally QID [place] Rashaad Curtis Pennsaid 2 applications to affected area Transdermal Active 2 % Transdermal Twice a day [place] Rashaad Curtis Zolpidem Tartrate 1 tablet at bedtime as needed Orally Active 10 MG Orally at bedtime [place] Rashaad Curtis Vitamin C as directed Orally Active 500 MG Orally once a day [place] Rashaad Curtis Clobetasol Propionate USE 1 APPLICATION ON AFFECTED AREA EXTERNALLY TWICE A DAY NA Active 0.05% [place] Rashaad Curtis Vitamin D 1 tablet Orally Active 1000 UNIT Orally Once a day [place] Rashaad Curtis Citracal + D 1 tablet with meals Orally Active 315-200 MG-UNIT Orally Twice a day [place] Rashaad Curtis Percocet 1 tablet as needed Orally Active 10-325 MG Orally every 6 hrs [place] Rashaad Curtis Keflex 1 capsule Orally Active 500 MG Orally every 12 hrs [place] Rashaad Curtis Escitalopram Oxalate TAKE 1 TABLET ONCE DAILY NA Active 20MG [place] Rashaad Curtis Methotrexate Sodium inject 0.6 ml's sub-q each week. Injection Active 25 MG/ML Injection once a week Mateus Curtis Clobetasol Propionate 1 application to affected area Externally Active 0.05 % Externally Twice a day Mateus Curtis Folic Acid TAKE 1 TABLET Orally Active 1MG Orally Twice a day [place] Rashaad Curtis PredniSONE TAKE 1 TABLET ONCE DAILY WITH FOOD OR MILK Orally Active 5MG Orally Once a day [place] Rashaad Curtis Reclast as directed Intravenous Active 5mg Intravenous qyr [place] Curtis Cyanocobalamin inject 1 ml subcutaneously each week subcutaneous Active 1000MCG/ML subcutaneous once a week [place] Rashaad Curtis Potassium Chloride CR 4 tablets Orally Active 10 MEQ Orally every day [place] Rashaad Curtis Hydroxychloroquine Sulfate not defined NA Active Chelly Curtis Zipsor 1 capsule Orally Active 25 MG Orally Four times a day [place] Curtis Enbrel 1 injection Subcutaneous Active 50 MG/ML Subcutaneous Every week [place] Curtis Vitamin D (Ergocalciferol) 1 capsule Orally Active 68101 UNIT Orally once a week fro 1 2weeks [facility] Rashaad Curtis Potassium Chloride CR 2 tablets Orally Active 10 MEQ Orally every day [place] Rashaad Curtis Diclofenac Sodium 1 tablet Orally Active 75 MG Orally Once a day [place] Rashaad Curtis Diclofenac Sodium 1 tablet Orally Active 50 MG Orally Once a day [place] Rashaad Curtis Hydromorphone HCl 1 tablet as needed Orally Active 4 MG Orally every 6 hrs [place] Rashaad Curtis Citracal Plus not defined NA Active Chelly Curtis Colestipol HCl 2 tablets Orally Active 1 GM Orally Once a day Chelly Curtis BL Magnesium not defined NA Active Chelly Curtis Nitrofurantoin Monohyd Macro not defined NA Active Chelly Curtis Colestipol HCl 3 Tablets Orally Active 1 GM Orally Two in the morning and One at night [place] Curtis Hydroxychloroquine Sulfate not defined NA Active Chelly Curtis Citracal Plus not defined NA Active Chelly Curtis Nitrofurantoin Monohyd Macro not defined NA Active Chelly Curtis BL Magnesium not defined NA Active Chelly Curtis Forteo not defined NA Active Chelly Curtis Custom Lift Chair as directed NA Active Chelly Curtis Allergies, Adverse Reactions, Alerts Substance Category Reaction Severity Reaction type Status Date Reported Comments Source regalan Adverse Reaction Info Not Available Adverse Reaction Active 01/03/2016 Rashaadelizabet Curtis Reglan Adverse Reaction dysphagia Adverse Reaction Active 04/24/2018 Rashaad Curtis biaxine Adverse Reaction rash Adverse Reaction Active 04/24/2018 Rashaad Curtis codine Adverse Reaction rash Adverse Reaction Active 04/24/2018 Rashaad Curtis penacillin Adverse Reaction rash Adverse Reaction Active 04/24/2018 Rashaad Curtis morphine Adverse Reaction Info Not Available Adverse Reaction Active 12/21/2018 Rashaad Curtis paper tape Adverse Reaction Info Not Available Adverse Reaction Active 12/21/2018 Rashaad Curtis penicillin Adverse Reaction Info Not Available Adverse Reaction Active 12/21/2018 Rashaad Curtis codiene Adverse Reaction Info Not Available Adverse Reaction Active 12/21/2018 Rashaad Curtis biaxin Adverse Reaction Info Not Available Adverse Reaction Active 12/21/2018 Rashaad Curtis Forteo Adverse Reaction Info Not Available Adverse Reaction Active 12/21/2018 Rashaad Curtis Biaxin drug allergy Allergy Active [facility] codeine drug allergy Allergy Active [facility] Paper Tape propensity to adverse reactions to substance Adverse Reaction Active [facility] penicillins drug allergy Allergy Active [facility] Immunizations Immunization Date Given Site Status Last Updated Comments Source Prolia 09/16/2016 completed Rashaad Curtis Prolia 03/14/2016 completed Rashaad Curtis Results Order Name Results Value Reference Range Date Interpretation Comments Source Elbow 3 views Elbow 3 views Left elbow, 3 view: Exam reason: Pain in limb. The radiocapitellar line is intact. There is no acute fracture or dislocation noted. SL:12 08/25/2013 - - Read by: Jeremie Ramos Dictated Date/time: 08/25/13 05:29 Electronically Signed by: Jeremie Ramos MD 08/25/13 05:29 FINAL REPORT [facility] Shoulder series Shoulder series Left shoulder, 3 view: Exam reason: Pain from a fall. A nondisplaced fracture of the greater tuberosity is suspected. There is no dislocation noted. Evidence of calcific tendinitis is noted. Vascular clips are noted at the left paramedian root of the neck. SL:12 08/25/2013 - - Read by: Jeremie Ramos Dictated Date/time: 08/25/13 05:26 Electronically Signed by: Jeremie Ramos MD 08/25/13 05:29 FINAL REPORT [facility] AP lateral Humerus AP lateral Addendum correction: A nondisplaced fracture of the greater tuberosity cannot be excluded. SL:12 Left humerus, 2 view: Exam reason: Pain, fall. There is no acute fracture or dislocation noted. SL:12 08/25/2013 - - Read by: Jeremie Ramos Dictated Date/time: 08/25/13 05:28 Electronically Signed by: Jeremie Ramos MD 08/25/13 05:28 FINAL REPORT - - Read by: Jeremie Ramos Dictated Date/time: 08/25/13 04:52 Electronically Signed by: Jeremie Ramos MD 08/25/13 04:52 FINAL REPORT [facility] Foot series Foot series Left foot, 3 view: Exam reason: Pain and swelling See Clinic Indication No acute fracture, dislocation or osteolysis is noted.. Mild hallux valgus with bunion deformity is noted. Syndesmophyte formation is noted at the Achilles tendon insertion. Plantar calcaneal spurring is noted. Minor degenerative arthropathy of the interphalangeal joints and the first MTP joint is noted. Hammertoe deformities are noted at the second through fifth toes. Degenerative changes are noted at the intertarsal articulations of the hindfoot. SL:12 08/25/2013 - - Read by: Jeremie Ramos Dictated Date/time: 08/25/13 04:50 Electronically Signed by: Jeremie Ramos MD 08/25/13 04:51 FINAL REPORT [facility] URINALYSIS UA Urobilinogen <=1.0 mg/dL
*NA*
(11/15/2011 11:05:00) <sup> </sup> 0.1 - 1.0 11/15/2011 [facility] URINALYSIS UA Mucus Few /LPF *NA* (11/15/2011 11:05:00) None Seen 11/15/2011 [facility] URINALYSIS UA RBC 1 /HPF 0 - 2 11/15/2011 Normal [facility] URINALYSIS UA WBC 2 /HPF 0 - 5 11/15/2011 Normal [facility] URINALYSIS UA Bili Negative *NA* (11/15/2011 11:05:00) Negative 11/15/2011 [facility] URINALYSIS UA Blood Trace *ABN* (11/15/2011 11:05:00) Negative 11/15/2011 ABN [facility] URINALYSIS UA Sq Epi Occasional /LPF *NA* (11/15/2011 11:05:00) Few 11/15/2011 NA [facility] URINALYSIS UA Nitrite Negative (11/15/2011 11:05:00) Negative 11/15/2011 Normal [facility] URINALYSIS UA Leuk Est Negative (11/15/2011 11:05:00) Negative 11/15/2011 Normal [facility] URINALYSIS UA Spec Grav 1.009 <=1.030 11/15/2011 Normal [facility] URINALYSIS UA Turbidity Clear (11/15/2011 11:05:00) Clear 11/15/2011 Normal [facility] URINALYSIS UA pH 5.0 5.0 - 8.0 11/15/2011 Normal [facility] URINALYSIS UA Ketones Negative mg/dL *NA* (11/15/2011 11:05:00) Negative 11/15/2011 NA [facility] URINALYSIS UA Protein Negative mg/dL (11/15/2011 11:05:00) Negative 11/15/2011 Normal [facility] URINALYSIS UA Glucose Negative mg/dL *NA* (11/15/2011 11:05:00) Negative 11/15/2011 NA [facility] URINALYSIS UA Color Yellow *NA* (11/15/2011 11:05:00) Yellow 11/15/2011 NA [facility] Vital Signs Vital Sign Value Date Comments Source Weight 245.3 12/21/2018 Rashaad Curtis Height 64 12/21/2018 Rashaad Careyer Temperature Oral (F) 97.8 F 12/21/2018 Rashaad Curtis Heart Rate 76 12/21/2018 Rashaad Curtis Diastolic (mm Hg) 72 12/21/2018 Rashaad Curtis Systolic (mm Hg) 112 12/21/2018 Rashaad Careyer Weight 248 10/13/2018 Rashaad Careyer Height 64 10/13/2018 Rashaad Curtis Temperature Oral (F) 97.8 F 10/13/2018 Rashaad Careyer Heart Rate 72 10/13/2018 Rashaad Curtis Diastolic (mm Hg) 70 10/13/2018 Rashaad Curtis Systolic (mm Hg) 122 10/13/2018 Rashaad Careyer Weight 251 06/12/2018 Rashaad Curtis Height 64 06/12/2018 Rashaad Curtis Temperature Oral (F) 98.17 F 06/12/2018 Rashaad Curtis Heart Rate 76 06/12/2018 Rashaad Curtis Diastolic (mm Hg) 66 06/12/2018 Rashaad Curtis Systolic (mm Hg) 98 06/12/2018 Rashaad Curtis Weight 258.8 03/09/2018 Rashaad Curtis Height 64 03/09/2018 Rashaad Curtis Temperature Oral (F) 98.8 F 03/09/2018 Rashaad Curtis Heart Rate 72 03/09/2018 Rashaad Curtis Diastolic (mm Hg) 90 03/09/2018 Rashaad Curtis Systolic (mm Hg) 136 03/09/2018 Rashaad Curtis Weight 256 12/10/2017 Rashaad Curtis Height 64 12/10/2017 Rashaad Curtis Temperature Oral (F) 97.9 F 12/10/2017 Rashaad Curtis Heart Rate 80 12/10/2017 Rashaad Curtis Diastolic (mm Hg) 88 12/10/2017 Rashaad Curtis Systolic (mm Hg) 110 12/10/2017 Rashaad Curtis Weight 256.8 11/20/2017 Rashaad Curtis Height 64 11/20/2017 Rashaad Curtis Temperature Oral (F) 97.3 F 11/20/2017 Rashaad Curtis Heart Rate 78 11/20/2017 Rashaad Curtis Diastolic (mm Hg) 80 11/20/2017 Rashaad Curtis Systolic (mm Hg) 118 11/20/2017 Rashaad Curtis Weight 268.1 07/17/2017 Rashaad Curtis Height 64 07/17/2017 Rashaad Curtis Temperature Oral (F) 99.1 F 07/17/2017 Rashaad Curtis Heart Rate 72 07/17/2017 Rashaad Curtis Diastolic (mm Hg) 80 07/17/2017 Rashaad Curtis Systolic (mm Hg) 124 07/17/2017 Rashaad Curtis Weight 275.6 07/02/2017 Rashaad Curtis Height 64 07/02/2017 Rashaad Curtis Temperature Oral (F) 98.0 F 07/02/2017 Rashaad Curtis Heart Rate 68 07/02/2017 Rashaad Curtis Diastolic (mm Hg) 64 07/02/2017 Rashaad Curtis Systolic (mm Hg) 124 07/02/2017 Rashaad Curtis Weight 268.8 06/03/2017 Rashaad Curtis Height 64 06/03/2017 Rashaad Curtis Temperature Oral (F) 97.6 F 06/03/2017 Rashaad Curtis Heart Rate 80 06/03/2017 Rashaad Curtis Diastolic (mm Hg) 70 06/03/2017 Rashaad Curtis Systolic (mm Hg) 110 06/03/2017 Rashaad Curtis Weight 266.1 05/09/2017 Rashaad Curtis Height 64 05/09/2017 Rashaad Curtis Temperature Oral (F) 97.4 F 05/09/2017 Rashaad Curtis Heart Rate 72 05/09/2017 Rashaad Curtis Diastolic (mm Hg) 72 05/09/2017 Rashaad Curtis Systolic (mm Hg) 128 05/09/2017 Rashaad Curtis Weight 262 03/17/2017 Rashaad Curtis Height 64 03/17/2017 Rashaad Curtis Temperature Oral (F) 98.3 F 03/17/2017 Rashaad Curtis Heart Rate 80 03/17/2017 Rashaad Curtis Diastolic (mm Hg) 72 03/17/2017 Rashaad Curtis Systolic (mm Hg) 112 03/17/2017 Rashaad Curtis Weight 258.3 02/26/2017 Rashaad Curtis Height 64 02/26/2017 Rashaad Curtis Temperature Oral (F) 97.7 F 02/26/2017 Rashaad Curtis Heart Rate 60 02/26/2017 Rashaad Curtis Diastolic (mm Hg) 72 02/26/2017 Rashaad Curtis Systolic (mm Hg) 122 02/26/2017 Rashaad Curtis Weight 255 01/29/2017 Rashaad Curtis Height 64 01/29/2017 Rashaad Curtis Temperature Oral (F) 97.6 F 01/29/2017 Rashaad Curtis Heart Rate 64 01/29/2017 Rashaad Curtis Diastolic (mm Hg) 66 01/29/2017 Rashaad Curtis Systolic (mm Hg) 112 01/29/2017 Rashaad Curtis Weight 255.3 12/30/2016 Rsahaad Curtis Height 64 12/30/2016 Rashaad Curtis Temperature Oral (F) 98.8 F 12/30/2016 Arshaad Curtis Heart Rate 74 12/30/2016 Rashaad Curtis Diastolic (mm Hg) 78 12/30/2016 Rashaad Curtis Systolic (mm Hg) 106 12/30/2016 Rashaad Curtis Weight 250 12/16/2016 Rashaad Curtis Height 64 12/16/2016 Rashaad Curtis Temperature Oral (F) 98.6 F 12/16/2016 Rashaad Curtis Heart Rate 80 12/16/2016 Rashaad Curtis Diastolic (mm Hg) 68 12/16/2016 Rashaad Curtis Systolic (mm Hg) 110 12/16/2016 Rashaad Curtis Weight 250.4 10/31/2016 Rashaad Curtis Height 64 10/31/2016 Rashaad Curtis Temperature Oral (F) 97.4 F 10/31/2016 Rashaad Curtis Diastolic (mm Hg) 72 10/31/2016 Rashaad Curtis Systolic (mm Hg) 128 10/31/2016 Rashaad Curtis Weight 250 09/16/2016 Rashaad Curtis Height 64 09/16/2016 Rashaad Curtis Temperature Oral (F) 97.6 F 09/16/2016 Rashaad Curtis Heart Rate 72 09/16/2016 Rashaad Curtis Diastolic (mm Hg) 80 09/16/2016 Rashaad Curtis Systolic (mm Hg) 122 09/16/2016 Rashaad Curtis Weight 243 06/24/2016 Rashaad Curtis Height 64 06/24/2016 Rashaad Curtis Temperature Oral (F) 98.4 F 06/24/2016 Rashaad Curtis Heart Rate 76 06/24/2016 Rashaad Curtis Diastolic (mm Hg) 76 06/24/2016 Rashaad Curtis Systolic (mm Hg) 124 06/24/2016 Rashaad Curtis Weight 243 04/23/2016 Rashaad Curtis Height 64 04/23/2016 Rashaad Curtis Temperature Oral (F) 97.8 F 04/23/2016 Rashaad Curtis Heart Rate 78 04/23/2016 Rashaad Curtis Diastolic (mm Hg) 78 04/23/2016 Rashaad Curtis Systolic (mm Hg) 128 04/23/2016 Rashaad Curtis Weight 254 03/14/2016 Rashaad Curtis Height 64 03/14/2016 Rashaad Curtis Temperature Oral (F) 97.7 F 03/14/2016 Rashaad Curtis Heart Rate 80 03/14/2016 Rashaad Curtis Diastolic (mm Hg) 76 03/14/2016 Rashaad Curtis Systolic (mm Hg) 132 03/14/2016 Rashaad Curtis Weight 252 01/03/2016 Rashaad Curtis Height 64 01/03/2016 Rashaad Curtis Temperature Oral (F) 98.2 F 01/03/2016 Rashaad Curtis Heart Rate 77 01/03/2016 Rashaad Curtis Diastolic (mm Hg) 74 01/03/2016 Rashaad Curtis Systolic (mm Hg) 114 01/03/2016 Rashaad Curtis Weight 254 09/07/2015 Rashaad Curtis Height 64 09/07/2015 Rashaad Curtis Temperature Oral (F) 98.1 F 09/07/2015 Rashaad Curtis Heart Rate 80 09/07/2015 Rashaad Curtis Diastolic (mm Hg) 72 09/07/2015 Rashaad Curtis Systolic (mm Hg) 112 09/07/2015 Rashaad Curtis Weight 274 10/03/2014 Rashaad Curtis Height 64 10/03/2014 Rashaad Curtis Temperature Oral (F) 98.3 F 10/03/2014 Rashaad Curtis Heart Rate 76 10/03/2014 Rashaad Curtis Diastolic (mm Hg) 76 10/03/2014 Rashaad Curtis Systolic (mm Hg) 124 10/03/2014 Rashaad Curtis Weight 270 04/25/2014 Rashaad Curtis Height 64 04/25/2014 Rashaad Curtis Temperature Oral (F) 98.5 F 04/25/2014 Rashaad Curtis Heart Rate 80 04/25/2014 Rashaad Curtis Diastolic (mm Hg) 74 04/25/2014 Rashaad Curtis Systolic (mm Hg) 130 04/25/2014 Rashaad Curtis Weight 264 01/24/2014 Rashaad Curtis Height 64.5 01/24/2014 Rashaad Curtis Temperature Oral (F) 97.6 F 01/24/2014 Rashaad Curtis Heart Rate 72 01/24/2014 Rashaad Curtis Diastolic (mm Hg) 82 01/24/2014 Rashaad Curtis Systolic (mm Hg) 128 01/24/2014 Rashaad Curtis Diastolic (mm Hg) 78 08/25/2013 [facility] Systolic (mm Hg) 105 08/25/2013 [facility] Heart Rate 87 08/25/2013 [facility] Respitory Rate 18 08/25/2013 [facility] Temperature Oral (F) 97.3 F 08/25/2013 [facility] Height 165.1 cm 08/25/2013 [facility] Weight 122.727 08/25/2013 [facility] Diastolic (mm Hg) 81 08/25/2013 [facility] Systolic (mm Hg) 124 08/25/2013 [facility] Heart Rate 117 08/25/2013 [facility] Respitory Rate 20 08/25/2013 [facility] Temperature Oral (F) 97.8 F 08/25/2013 [facility] Heart Rate 59 03/18/2012 [facility] Systolic (mm Hg) 113 03/18/2012 [facility] Diastolic (mm Hg) 56 03/18/2012 [facility] Diastolic (mm Hg) 78 03/02/2012 [facility] Systolic (mm Hg) 128 03/02/2012 [facility] Heart Rate 80 03/02/2012 [facility] Diastolic (mm Hg) 71 02/03/2012 [facility] Systolic (mm Hg) 126 02/03/2012 [facility] Heart Rate 64 02/03/2012 [facility] Height 165.10 cm 01/27/2012 [facility] Weight 104.545 01/27/2012 [facility] Diastolic (mm Hg) 68 01/27/2012 [facility] Respitory Rate 18 01/27/2012 [facility] Heart Rate 81 01/27/2012 [facility] Systolic (mm Hg) 110 01/27/2012 [facility] Diastolic (mm Hg) 72 01/22/2012 [facility] Systolic (mm Hg) 127 01/22/2012 [facility] Heart Rate 79 01/22/2012 [facility] Heart Rate 63 01/13/2012 [facility] Diastolic (mm Hg) 76 01/13/2012 [facility] Systolic (mm Hg) 133 01/13/2012 [facility] Systolic (mm Hg) 122 01/08/2012 [facility] Heart Rate 69 01/08/2012 [facility] Diastolic (mm Hg) 72 01/08/2012 [facility] Diastolic (mm Hg) 81 12/30/2011 [facility] Systolic (mm Hg) 129 12/30/2011 [facility] Heart Rate 65 12/30/2011 [facility] Systolic (mm Hg) 110 11/19/2011 [facility] Diastolic (mm Hg) 72 11/19/2011 [facility] Heart Rate 89 11/19/2011 [facility] Heart Rate 86 11/19/2011 [facility] Systolic (mm Hg) 118 11/19/2011 [facility] Diastolic (mm Hg) 75 11/19/2011 [facility] Encounters Location Location Details Encounter Type Encounter Number Reason For Visit Attending Provider ADM Date DC Date Status Source TO [id number] [place] X3, RETROPERITONEAL BLEED JESSICA WHITLOCK 11/19/2011 Active [facility] Outpatient [id number] RECTAL CONTRAST ONLY, NO IVDX: VAGINAL FISTULA ABHISHEK VAZQUEZ 11/26/2011 Active [facility] TO [id number] [place] X3, RETROPERITONEAL BLEED JESSICA BARRY-KOTHARI 12/19/2011 Active [facility] TO [id number] [place], RETROPERITONEAL BLEED JESSICA BARRY-KOTHARI 01/21/2012 Active [facility] Outpatient [id number] POST ADENIKE FU MEILANI MAPA 01/27/2012 Active [facility] TO [id number] [place] X3, RETROPERITONEAL BLEED JESSICA BARRY-KOTHARI 03/02/2012 Active [facility] Emergency [id number] CHRISTION RICE 08/25/2013 08/25/2013 Active [facility] Amadeo Curtis MD [facility] [id number] 01/24/2014 01/24/2014 Rashaad Curtis MD [facility] [id number] 01/24/2014 01/24/2014 Rashaad Curtis MD [facility] [id number] 01/24/2014 01/24/2014 Rashaad Curtis MD [facility] [id number] 01/24/2014 01/24/2014 Rashaad Curtis MD [facility] [id number] 01/24/2014 01/24/2014 Rashaad Curtis MD [facility] [id number] 01/24/2014 01/24/2014 Rashaad Curtis MD [facility] [id number] 01/24/2014 01/24/2014 Rashaad Curtis MD [facility] [id number] 01/24/2014 01/24/2014 Rashaad Curtis MD [facility] [id number] 01/24/2014 01/24/2014 Rashaad Curtis MD [facility] [id number] 01/24/2014 01/24/2014 Rashaad Curtis MD [facility] [id number] 01/24/2014 01/24/2014 Rashaad Curtis MD [facility] [id number] 01/24/2014 01/24/2014 Rashaad Curtis MD [facility] [id number] 01/24/2014 01/24/2014 Rashaad Curtis MD [facility] [id number] 01/24/2014 01/24/2014 Rashaad Curtis MD [facility] [id number] 01/24/2014 01/24/2014 Rashaad Curtis MD [facility] [id number] 01/24/2014 01/24/2014 Rashaad Curtis MD [facility] [id number] 01/24/2014 01/24/2014 Rashaad Curtis MD [facility] [id number] 01/24/2014 01/24/2014 Rashaad Curtis MD [facility] [id number] 01/24/2014 01/24/2014 Rashaad Curtis MD [facility] [id number] 01/24/2014 01/24/2014 Rashaad Curtis MD [facility] [id number] 01/24/2014 01/24/2014 Rashaad Curtis MD [facility] [id number] 01/24/2014 01/24/2014 Rashaad Curtis MD [facility] [id number] 01/24/2014 01/24/2014 Rashaad Curtis MD [facility] [id number] 01/24/2014 01/24/2014 Rashaad Curtis MD [facility] [id number] 01/24/2014 01/24/2014 Rashaad Curtis MD [facility] [id number] 01/24/2014 01/24/2014 Rashaad Curtis MD [facility] [id number] 01/24/2014 01/24/2014 Rashaad Curtis MD [facility] [id number] 01/24/2014 01/24/2014 Rashaad Curtis MD [facility] [id number] 04/25/2014 04/25/2014 Rashaad Curtis MD [facility] [id number] 04/25/2014 04/25/2014 Rashaad Curtis MD [facility] [id number] 04/25/2014 04/25/2014 Rashaad Curtis MD [facility] [id number] 04/25/2014 04/25/2014 Rashaad Curtis MD [facility] [id number] 04/25/2014 04/25/2014 Rashaad Curtis MD [facility] [id number] 04/25/2014 04/25/2014 Rashaad Curtis MD [facility] [id number] 04/25/2014 04/25/2014 Rashaad Curtis MD [facility] [id number] 04/25/2014 04/25/2014 Rashaad Curtis MD [facility] [id number] 04/25/2014 04/25/2014 Rashaad Curtis MD [facility] [id number] 04/25/2014 04/25/2014 Rashaad Curtis MD [facility] [id number] 04/25/2014 04/25/2014 Rashaad Curtis MD [facility] [id number] 04/25/2014 04/25/2014 Rashaad Curtis MD [facility] [id number] 04/25/2014 04/25/2014 Rashaad Curtis MD [facility] [id number] 04/25/2014 04/25/2014 Rashaad Curtis MD [facility] [id number] 04/25/2014 04/25/2014 Rashaad Curtis MD [facility] [id number] 04/25/2014 04/25/2014 Rashaad Curtis MD [facility] [id number] 04/25/2014 04/25/2014 Rashaad Curtis MD [facility] [id number] 04/25/2014 04/25/2014 Rashaad Curtis MD [facility] [id number] 04/25/2014 04/25/2014 Rashaad Curtis MD [facility] [id number] 04/25/2014 04/25/2014 Rashaad Curtis MD [facility] [id number] 04/25/2014 04/25/2014 Rashaad Curtis MD [facility] [id number] 04/25/2014 04/25/2014 Rashaad Curtis MD [facility] [id number] 04/25/2014 04/25/2014 Rashaad Curtis MD [facility] [id number] 04/25/2014 04/25/2014 Rashaad Curtis MD [facility] [id number] 04/25/2014 04/25/2014 Rashaad Curtis MD [facility] [id number] 04/25/2014 04/25/2014 Rashaad Curtis MD [facility] [id number] 04/25/2014 04/25/2014 Rashaad Curtis MD MRI [id number] 04/29/2014 04/29/2014 Rashaad Curtis MD MRI [id number] 04/29/2014 04/29/2014 Rashaad Curtis MD MRI [id number] 04/29/2014 04/29/2014 Rashaad Curtis MD MRI [id number] 04/29/2014 04/29/2014 Rashaad Curtis MD MRI [id number] 04/29/2014 04/29/2014 Rashaad Curtis MD MRI [id number] 04/29/2014 04/29/2014 Rashaad Curtis MD MRI [id number] 04/29/2014 04/29/2014 Rashaad Curtis MD MRI [id number] 04/29/2014 04/29/2014 Rashaad Curtis MD MRI [id number] 04/29/2014 04/29/2014 Rashaad Curtis MD MRI [id number] 04/29/2014 04/29/2014 Rashaad Curtis MD MRI [id number] 04/29/2014 04/29/2014 Rashaad Curtis MD MRI [id number] 04/29/2014 04/29/2014 Rashaad Curtis MD MRI [id number] 04/29/2014 04/29/2014 Rashaad Curtis MD MRI [id number] 04/29/2014 04/29/2014 Rashaad Curtis MD MRI [id number] 04/29/2014 04/29/2014 Rashaad Curtis MD MRI [id number] 04/29/2014 04/29/2014 Rashaad Curtis MD MRI [id number] 04/29/2014 04/29/2014 Rashaad Curtis MD MRI [id number] 04/29/2014 04/29/2014 Rashaad Curtis MD [facility] [id number] 04/29/2014 04/29/2014 Rashaad Curtis MD [facility] [id number] 04/29/2014 04/29/2014 Rashaad Curtis MD [facility] [id number] 04/29/2014 04/29/2014 Rashaad Curtis MD [facility] [id number] 04/29/2014 04/29/2014 Rashaad Curtis MD [facility] [id number] 04/29/2014 04/29/2014 Rashaad Curtis MD [facility] [id number] 04/29/2014 04/29/2014 Rashaad Curtis MD [facility] [id number] 04/29/2014 04/29/2014 Rashaad Curtis MD MRI [id number] 04/29/2014 04/29/2014 Rashaad Curtis MD [facility] [id number] 06/02/2014 06/02/2014 Rashaad Curtis MD [facility] [id number] 06/02/2014 06/02/2014 Rashaad Curtis MD [facility] [id number] 06/02/2014 06/02/2014 Rashaad Curtis MD [facility] [id number] 06/02/2014 06/02/2014 Rashaad Curtis MD [facility] [id number] 06/02/2014 06/02/2014 Rashaad Curits MD [facility] [id number] 06/02/2014 06/02/2014 Rashaad Curtis MD [facility] [id number] 06/02/2014 06/02/2014 Rashaad Curtis MD [facility] [id number] 06/02/2014 06/02/2014 Rashaad Curtis MD [facility] [id number] 06/02/2014 06/02/2014 Rashaad Curtis MD [facility] [id number] 06/02/2014 06/02/2014 Rashaad Curtis MD [facility] [id number] 06/02/2014 06/02/2014 Rashaad Curtis MD [facility] [id number] 06/02/2014 06/02/2014 Rashaad Curtis MD [facility] [id number] 06/02/2014 06/02/2014 Rashaad Curtis MD [facility] [id number] 06/02/2014 06/02/2014 Rashaad Curtis MD [facility] [id number] 06/02/2014 06/02/2014 Rashaad Curtis MD [facility] [id number] 06/02/2014 06/02/2014 Rashaad Curtis MD [facility] [id number] 06/02/2014 06/02/2014 Rasahad Curtis MD [facility] [id number] 06/02/2014 06/02/2014 Rashaad Curtis MD [facility] [id number] 06/02/2014 06/02/2014 Rashaad Curtis MD [facility] [id number] 06/02/2014 06/02/2014 Rashaad Curtis MD [facility] [id number] 06/02/2014 06/02/2014 Rashaad Curtis MD [facility] [id number] 06/02/2014 06/02/2014 Rashaad Curtis MD [facility] [id number] 06/02/2014 06/02/2014 Rashaad Curtis MD [facility] [id number] 06/02/2014 06/02/2014 Rashaad Curtis MD [facility] [id number] 06/02/2014 06/02/2014 Rashaad Curtis MD [facility] REC[facility] [id number] 06/02/2014 06/02/2014 Rashaad Curtis MD INJECTION REQ [id number] 06/10/2014 06/10/2014 Rashaad Curtis MD INJECTION REQ [id number] 06/10/2014 06/10/2014 Rashaad Curtis MD INJECTION REQ [id number] 06/10/2014 06/10/2014 Rashaad Curtis MD INJECTION REQ [id number] 06/10/2014 06/10/2014 Rashaad Curtis MD INJECTION REQ [id number] 06/10/2014 06/10/2014 Rashaad Curtis MD INJECTION REQ [id number] 06/10/2014 06/10/2014 Rashaad Curtis MD INJECTION REQ [id number] 06/10/2014 06/10/2014 Rashaad Curtis MD INJECTION REQ [id number] 06/10/2014 06/10/2014 Rashaad Curtis MD INJECTION REQ [id number] 06/10/2014 06/10/2014 Rashaad Curtis MD INJECTION REQ [id number] 06/10/2014 06/10/2014 Rashaad Curtis MD INJECTION REQ [id number] 06/10/2014 06/10/2014 Rashaad Curtis MD INJECTION REQ [id number] 06/10/2014 06/10/2014 Rashaad Curtis MD INJECTION REQ [id number] 06/10/2014 06/10/2014 Rashaad Curtis MD INJECTION REQ [id number] 06/10/2014 06/10/2014 Rashaad Curtis MD INJECTION REQ [id number] 06/10/2014 06/10/2014 Rashaad Curtis MD INJECTION REQ [id number] 06/10/2014 06/10/2014 Rashaad Curtis MD INJECTION REQ [id number] 06/10/2014 06/10/2014 Rashaad Curtis MD INJECTION REQ [id number] 06/10/2014 06/10/2014 Rashaad Curtis MD INJECTION REQ [id number] 06/10/2014 06/10/2014 Rashaad Curtis MD INJECTION REQ [id number] 06/10/2014 06/10/2014 Rashaad Curtis MD INJECTION REQ [id number] 06/10/2014 06/10/2014 Rashaad Curtis MD INJECTION REQ [id number] 06/10/2014 06/10/2014 Rashaad Curtis MD INJECTION REQ [id number] 06/10/2014 06/10/2014 Rashaad Curtis MD INJECTION REQ [id number] 06/10/2014 06/10/2014 Rashaad Curtis MD INJECTION REQ [id number] 06/10/2014 06/10/2014 Rashaad Curtis MD INJECTION REQ [id number] 06/10/2014 06/10/2014 Rashaad Curtis MD medication question [id number] 07/05/2014 07/05/2014 Rashaad Curtis MD medication question [id number] 07/05/2014 07/05/2014 Rashaad Curtis MD medication question [id number] 07/05/2014 07/05/2014 Rashaad Curtis MD medication question [id number] 07/05/2014 07/05/2014 Rashaad Curtis MD medication question [id number] 07/05/2014 07/05/2014 Rashaad Curtis MD medication question [id number] 07/05/2014 07/05/2014 Rashaad Curtis MD medication question [id number] 07/05/2014 07/05/2014 Rashaad Curtis MD medication question [id number] 07/05/2014 07/05/2014 Rashaad Curtis MD medication question [id number] 07/05/2014 07/05/2014 Rashaad Curtis MD medication question [id number] 07/05/2014 07/05/2014 Rashaad Curtis MD medication question [id number] 07/05/2014 07/05/2014 Rashaad Curtis MD medication question [id number] 07/05/2014 07/05/2014 Rashaad Curtis MD medication question [id number] 07/05/2014 07/05/2014 Rashaad Curtis MD medication question [id number] 07/05/2014 07/05/2014 Rashaad Curtis MD medication question [id number] 07/05/2014 07/05/2014 Rashaad Curtis MD medication question [id number] 07/05/2014 07/05/2014 Rashaad Curtis MD medication question [id number] 07/05/2014 07/05/2014 Rashaad Curtis MD medication question [id number] 07/05/2014 07/05/2014 Rashaad Curtis MD medication question [id number] 07/05/2014 07/05/2014 Rashaad Curtis MD medication question [id number] 07/05/2014 07/05/2014 Rashaad Curtis MD medication question [id number] 07/05/2014 07/05/2014 Rashaad Curtis MD medication question [id number] 07/05/2014 07/05/2014 Rashaad Curtis MD medication question [id number] 07/05/2014 07/05/2014 Rashaad Curtis MD medication question [id number] 07/05/2014 07/05/2014 Rashaad Curtis MD medication question [id number] 07/05/2014 07/05/2014 Rashaad Curtis MD medication question [id number] 07/05/2014 07/05/2014 Rashaad Curtis MD RECLAST [id number] 07/13/2014 07/13/2014 Rashaad Curtis MD [facility] [id number]-7ce0-9815-6203-6q9427f82wa1 07/13/2014 07/13/2014 Rashaad Curtis MD [facility] 701po70n-6966-4smy-3ox0-1o62645fy018 07/13/2014 07/13/2014 Rashaad Curtis MD [facility] jrr5o954-3395-3s0h-9773-rll6m0vbs8k3 07/13/2014 07/13/2014 Rashaad Curtis MD [facility] f555k866-7900-67p7-v7q8-131fu247v848 07/13/2014 07/13/2014 Rashaad Curtis MD [facility] aw33h3et-h873-334t-q63s-w76j9864cx62 07/13/2014 07/13/2014 Rashaad Curtis MD [facility] s16n999g-070u-38fl-2o63-stbe3p92019b 07/13/2014 07/13/2014 Rashaad Curtis MD [facility] [id number]-026r-f24p908n2k7j 07/13/2014 07/13/2014 Rashaad Curtis MD [facility] 3087g08z-73i8-5k98-29yu-5082q12wtln1 07/13/2014 07/13/2014 Rashaad Curtis MD [facility] 92o7p1m4-1gb0-6524-8a04-1833d75g4027 07/13/2014 07/13/2014 Rashaad Curtis MD [facility] 5125y85o-d1wy-569p-g5g0-08zakvtcm907 07/13/2014 07/13/2014 Rashaad Curtis MD [facility] 345g2d30-7010-1b87-g75z-5q168181h641 07/13/2014 07/13/2014 Rashaad Curtis MD [facility] 8842h02l-t7va-3tnd-4iq6-1xoou673w6fs 07/13/2014 07/13/2014 Rashaad Curtis MD [facility] 4zlhx194-y4s8-8gh4-xj44-821z6aw41887 07/13/2014 07/13/2014 Rashaad Curtis MD [facility]CL[facility] m8ahcz59-5g4t-9lbc-8f8z-5m870i70pky1 07/13/2014 07/13/2014 Rashaad Curtis MD [facility] 57b02877-5g7o-7i49-yb93-d6ue7f1236y0 07/13/2014 07/13/2014 Rashaad Curtis MD [facility] 3z3s8717-s250-90eb-z509-zg5aq960f7l5 07/13/2014 07/13/2014 Rashaad Curtis MD [facility] 0t7355x2-153f-5gqj-y711-11o9m41s4782 07/13/2014 07/13/2014 Rashaad Curtis MD [facility] 47m47720-87h2-6a8a-3e9t-7ag98kg5z0x6 07/13/2014 07/13/2014 Rashaad Curtis MD [facility] 49a5nq3y-t188-74u0-cq33-73jdf1xap5d3 07/13/2014 07/13/2014 Rashaad Curtis MD [facility] [id number] 07/13/2014 07/13/2014 Rashaad Curtis MD [facility] se2pk1mx-os89-06o6-q5pi-33gl32awr63v 07/13/2014 07/13/2014 Rashaad Curtis MD [facility] 089px78h-h634-81k2-fawv-w8m431n9x50m 08/01/2014 08/01/2014 Rashaad Curtis MD [facility] [id number]-9s83-698y7i328697 08/01/2014 08/01/2014 Rashaad Curtis MD [facility] 70n48545-nr2e-549y-l848-605ks5gb794v 08/01/2014 08/01/2014 Rashaad Curtis MD [facility] 11hs7310-v9u2-2r5j-wkep-3b014nx7f76h 08/01/2014 08/01/2014 Rashaad Curtis MD [facility] 3tu8z2l2-y595-40m8-3510-im779152g054 08/01/2014 08/01/2014 Rashaad Curtis MD [facility] 4hvs1r39-9i8f-22m8-2147-947379757wr7 08/01/2014 08/01/2014 Rashaad Curtis MD [facility] 26j0po92-7z8c-98ej-e525-8x86b4865483 08/01/2014 08/01/2014 Rashaad Curtis MD [facility] [id number]-xd9w-695733kf49f7 08/01/2014 08/01/2014 Rashaad Curtis MD [facility] [id number]-0857-843r-3z1epy3tmvja 08/01/2014 08/01/2014 Rashaad Curtis MD [facility] 0cz8868d-so04-172y-7683-300299s7g18s 08/01/2014 08/01/2014 Rashaad Curtis MD [facility] [id number]k618x654634 08/01/2014 08/01/2014 Rashaad Curtis MD [facility] [id number]-6e27-0w90-g5y3-446o2q1c0qss 08/01/2014 08/01/2014 Rashaad Curtis MD [facility] 55ev7zz1-564l-0113-rl28-s3cs37r4j6ol 08/01/2014 08/01/2014 Rashaad Curtis MD [facility] r992mst3-21lc-2r8i-fp27-g292x51m09uy 08/01/2014 08/01/2014 Rashaad Curtis MD [facility] jgi4w897-9yh0-0kqg-187g-zcq138677j69 08/01/2014 08/01/2014 MD Ruth Fay rrp7272g-i2cm-750c-xb9w-ec11c9504252 08/01/2014 08/01/2014 MD Ruth Fay y2j716n1-ovp6-918p-29n1-of3dl39v6066 08/01/2014 08/01/2014 MD Ruth Fay feq101y7-h60w-5m5d-1845-86ji3698kcq2 08/01/2014 08/01/2014 MD Ruth Fay 4w9i341d-j897-86p1-r41w-523r0556699z 08/01/2014 08/01/2014 MD Ruth Fay 03y84iyq-6m5l-18j8-7nd7-g32n7992w806 08/01/2014 08/01/2014 MD Ruth Fay 7y929997-06oo-95h3-v731-r2n70jhjkb96 08/01/2014 08/01/2014 MD Ruth Fay 2f93dh85-73rq-37p7-e5sy-7980nld9i772 08/01/2014 08/01/2014 MD Ruth Fay j2u39tnv-k7p9-5271-a348-886l0w8dg149 08/01/2014 08/01/2014 MD Ruth Fay z31oa23c-6747-1746-bs92-n9xmm8b34722 08/01/2014 08/01/2014 MD Ruth Fay 833nc916-s7b6-5194-u57g-va87xuk99p83 08/01/2014 08/01/2014 MD Ruth Fay f3k5ej92-4174-192u-60rl-v4k716h77281 08/01/2014 08/01/2014 MD Ruth Fay 966qsn4d-v7it-80cl-dl8s-2f5s65c0083q 08/01/2014 08/01/2014 MD Ruth Fay 024g8086-0b5f-5h88-o082-tiv0243oq988 08/01/2014 08/01/2014 MD Ruth Fay 8n0vf5ml-4n78-973n-2e97-r622t0muhpq0 08/01/2014 08/01/2014 MD Ruth Fay 8tp33de2-1968-3994-d97g-j0t92br38qld 08/01/2014 08/01/2014 MD Ruth Fay 8u8384k1-89av-0250-uxe1-6qsb87379281 08/01/2014 08/01/2014 MD Ruth Fay w6d15041-x097-097v-6502-5450439c29a5 08/01/2014 08/01/2014 Rashaad Curtis MD [facility] 906olqb9-6r52-4gpn-fn49-q25c771v0040 08/01/2014 08/01/2014 Rashaad Curtis MD Proleugene 18147ye4-7284-9gm8-9jpk-51t787542s1n 08/01/2014 08/01/2014 MD Ruth Fay 27j847h8-9adg-9250-oww0-5553c75042j1 08/01/2014 08/01/2014 MD Ruth Fay 1csjz6qm-1txq-7f14-dn95-j47585i2648r 08/01/2014 08/01/2014 Rashaad Curtis MD MRI order [id number]-8416-7vib-78kc-4g7o2o1ro610 08/02/2014 08/02/2014 Rashaad Curtis MD MRI order w0at868x-n876-6d47-ei85-3dt573x070jz 08/02/2014 08/02/2014 Rashaad Curtis MD MRI order i4r45wj6-dbp3-862v-4250-z8tr80p048w5 08/02/2014 08/02/2014 Rashaad Curtis MD MRI order [id number]-mi8y363d2o03 08/02/2014 08/02/2014 Rashaad Curtis MD MRI order [id number]-1li1-0171-pav0-np82sd91087i 08/02/2014 08/02/2014 Rashaad Curtis MD MRI order [id number]-8jn8-066x-71w2-8mb79218n69n 08/02/2014 08/02/2014 Rashaad Curtis MD MRI order [id number]-ju66r0dt7p98 08/02/2014 08/02/2014 Rashaad Curtis MD MRI order [id number]-6s98-187m-852063e033sl 08/02/2014 08/02/2014 Rashaad Curtis MD MRI order [id number]-8xv5-4er3a366sn66 08/02/2014 08/02/2014 Rashaad Curtis MD MRI order [id number]-updq-2880204g38w8 08/02/2014 08/02/2014 Rashaad Curtis MD MRI order [id number]-524a-5tc6-ix5eo6d05evl 08/02/2014 08/02/2014 Rashaad Curtis MD MRI order 86h3yr0m-0x1g-9t8x-7w24-89e01va14s2s 08/02/2014 08/02/2014 Rashaad Curtis MD MRI order [id number] 08/02/2014 08/02/2014 Rashaad Curtis MD MRI order [id number]-j65oxtetmw9t 08/02/2014 08/02/2014 Rashaad Curtis MD MRI order [id number]-[id number] 08/02/2014 08/02/2014 Rashaad Curtis MD MRI order [id number]-89lw-xoew-h2s13u2593yu 08/02/2014 08/02/2014 Rashaad Curtis MD MRI order 44v18jx0-731q-5284-fe79-5g6j77yvk2rt 08/02/2014 08/02/2014 Rashaad Curtis MD MRI order [id number]-pla9-r66j48vsfw95 08/02/2014 08/02/2014 Rashaad Curtis MD MRI order [id number]-f92v-8n64-871d-25i4xe2o4911 08/02/2014 08/02/2014 Rashaad Curtis MD MRI order [id number]-[id number] 08/02/2014 08/02/2014 Rashaad Curtis MD MRI order [id number]-s30p43noc864 08/02/2014 08/02/2014 Rashaad Curtis MD [facility] 50yn79t6-mt26-35bh-4tmh-1839m1o2p35j 08/29/2014 08/29/2014 Rashaad Curtis MD [facility] [id number]-j891-4e1t77m3375e 08/29/2014 08/29/2014 Rashaad Curtis MD [facility] 054x6e19-5106-95yu-6g55-296643k6hl91 08/29/2014 08/29/2014 Rashaad Curtis MD [facility] [id number]-d866-7809-zrl5-9e73q959998k 08/29/2014 08/29/2014 Rashaad Curtis MD [facility] [id number]-82ln-02vh-020ux9o171hq 08/29/2014 08/29/2014 Rashaad Curtis MD [facility] m95v96n5-8ogq-5e01-959q-2531493y147j 08/29/2014 08/29/2014 Rashaad Curtis MD [facility] 9h46ou58-mn5r-8s4r-jj9h-895s8d5su672 08/29/2014 08/29/2014 Rashaad Curtis MD [facility] 1076qof1-78n4-0fx9-814x-n2b939589431 08/29/2014 08/29/2014 Rashaad Curtis MD [facility] [id number]-w923-949t-59xd-kh51574vk637 08/29/2014 08/29/2014 Rashaad Curtis MD [facility] n9r7w895-1g22-00s6-5068-4w55s7688irf 08/29/2014 08/29/2014 Rashaad Curtis MD [facility] 69u064bs-h0ok-75m2-4421-0v0z83542865 08/29/2014 08/29/2014 Rashaad Curtis MD [facility] [id number]-2v0b-78g5423v2f41 08/29/2014 08/29/2014 Rashaad Curtis MD [facility] 045x041k-f6z3-9712-n23m-50x175h1s985 08/29/2014 08/29/2014 Rashaad Curtis MD [facility] [id number]-1944-3s7f7vp601v0 08/29/2014 08/29/2014 Rashaad Curtis MD [facility] [id number]-0p3q-14s168780i40 08/29/2014 08/29/2014 Rashaad Curtis MD [facility] [id number]-0271-ibe2b8b91284 08/29/2014 08/29/2014 Rashaad Curtis MD Ref[facility] [id number]-q261-m7tj71338x90 08/29/2014 08/29/2014 Rashaad Curtis MD Ref[facility] [id number]-7v88-087a5h425e65 08/29/2014 08/29/2014 Rashaad Curtis MD Ref[facility] 9uso1tyk-56xe-8379-642q-840kcvw3l61w 08/29/2014 08/29/2014 Rashaad Curtis MD [facility] [id number]-3976-1989-2cs9y90uvdo9 09/01/2014 09/01/2014 Rashaad Curtis MD [facility] e5i6vlh2-796e-7i55-89h3-9bf7t20km109 09/01/2014 09/01/2014 Rashaad Curtis MD [facility] 0itq7g22-8957-04hp-i842-060939115sp5 09/01/2014 09/01/2014 Rashaad Curtis MD [facility] 254r04e6-3b1c-351u-m698-l991v8623o67 09/01/2014 09/01/2014 MD SHAHBAZ FayIA [id number]-0111-h62b-59juetup0n85 09/01/2014 09/01/2014 Rashaad Curtis MD PROL[facility] ex7bu322-c34x-940u-9482-688dkmo561yh 09/01/2014 09/01/2014 Rashaad Curtis MD [facility] yx1gg419-64fa-80z5-0562-vemnkjt2y8f8 09/01/2014 09/01/2014 MD SHAHBAZ FayIA px7067qe-u058-2065-2tb1-e3v195p7hmq0 09/01/2014 09/01/2014 MD RUTH Fay h02z4307-i7pl-68p8-83e5-7w87xks40s7z 09/01/2014 09/01/2014 Rashaad Curtis MD PROLIA 482ev87p-mi36-3b45-i119-23dbd837f079 09/01/2014 09/01/2014 MD RUTH Fay 506673es-6692-9x01-k24f-095070e5oxi2 09/01/2014 09/01/2014 MD RUTH Fay 2n7z0bvh-h79h-2xoo-h18s-56ki7652ghez 09/01/2014 09/01/2014 MD RUTH Fay 3608a8ys-z4od-5m0t-12k2-4iob3hoe6x63 09/01/2014 09/01/2014 MD RUTH Fay 5i5z42s0-k52w-09u5-dn52-522455ww968f 09/01/2014 09/01/2014 MD RUTH Fay 129b9t14-y754-8p88-r579-i7v3w84961n0 09/01/2014 09/01/2014 MD RUTH Fay m45n47zl-x015-0y7g-w8ov-07577r62g59q 09/01/2014 09/01/2014 MD RUTH Fay ox44g3ra-245s-0m46-f9u3-7l6gfoo45l48 09/01/2014 09/01/2014 MD RUTH Fay w5373scb-67ui-5i48-zf21-8q6c43983x14 09/01/2014 09/01/2014 MD RUTH Fay 207u6569-76zf-019s-9jcb-72fi25s57775 09/01/2014 09/01/2014 Rashaad Curtis MD f/u xcv3tses-8n51-6zc4-u6ii-cg53s06h4260 10/03/2014 10/03/2014 Rashaad Curtis MD 2m f/u 62ff3oa9-9i30-9e12-7pi1-j93umu905ryu 10/03/2014 10/03/2014 Rashaad Curtis MD 2m f/u 1v3kv535-zkss-113g-9b55-5g72t64sa22l 10/03/2014 10/03/2014 Rashaad Curtis MD 2m f/u 1pjs5p88-4888-32r4-0w5y-q9u84ab82956 10/03/2014 10/03/2014 Rashaad Curtis MD 2m f/u 9262p7c9-j3l8-8j01-e5q3-4xti042q0x2m 10/03/2014 10/03/2014 Rashaad Curtis MD 2m f/u 0z537158-5388-1178-3375-0787a6mr61f8 10/03/2014 10/03/2014 Rashaad Curtis MD 2m f/u 7h4z7367-6348-27or-9v03-8a0u88242r8x 10/03/2014 10/03/2014 Rashaad Curtis MD 2m f/u s898e145-719p-0493-hvjy-19ai6z8g0qg7 10/03/2014 10/03/2014 Rashaad Curtis MD 2m f/u 69q2q236-ra96-66q9-616m-9xoiow778963 10/03/2014 10/03/2014 Rashaad Curtis MD 2m f/u zc1v2951-3od0-9pnm-54bo-38k80oj417t5 10/03/2014 10/03/2014 Rashaad Curtis MD 2m f/u 6x604100-4774-2fs9-p087-f4p97q5m7k60 10/03/2014 10/03/2014 Rashaad Curtis MD 2m f/u 464u21io-6eh4-32se-9d00-q95dtr416306 10/03/2014 10/03/2014 Rashaad Curtis MD 2m f/u 5r3jrwa7-0q0b-85j2-59l4-t9157ul7a95z 10/03/2014 10/03/2014 Rashaad Curtis MD 2m f/u 6u97o752-5ai0-62y0-q3l7-o2983636s02z 10/03/2014 10/03/2014 Rashaad Curtis MD 2m f/u 526an341-p8b3-57h8-29wq-l3n6tex4816f 10/03/2014 10/03/2014 Rashaad Curtis MD 2m f/u j478ofin-6k68-794k-55o2-m7jlb2742730 10/03/2014 10/03/2014 Rashaad Curtis MD 2m f/u z427jz89-52z7-4543-7nd8-7k4216ke0e09 10/03/2014 10/03/2014 MD ruth Fay 6vad1a83-88sw-6175-369k-m6x1e60x1170 10/03/2014 10/03/2014 MD ruth Fay yfutkhkz-74r4-6g6157s8-7i35-ljg2-19812ev9j2l6 10/03/2014 10/03/2014 MD ruth Fay 75491cop-cfv8-68f7-ot90-a855tv937z8o 10/03/2014 10/03/2014 MD ruth Fay 848960i0-s0q4-5c1p-68t0-ie235889l680 10/03/2014 10/03/2014 MD shahbaz Fayia 086d3019-02o0-5h04-36fi-41421ap71z3w 10/03/2014 10/03/2014 MD ruth Fay 1u1x3877-f892-466z-e6c6-8kf3385l2024 10/03/2014 10/03/2014 MD ruth Fay 6546p5k6-bu28-7se4-oz7s-m8o97v663g7n 10/03/2014 10/03/2014 MD ruth Fay 4zzcd656-0gmm-641z-zq8a-ct881h65930w 10/03/2014 10/03/2014 MD ruth Fay 19u663t5-737c-35e1-1b66-09ce44kj6k5j 10/03/2014 10/03/2014 MD ruth Fay o7uh4jp1-142r-47j3-f4io-63vzu42gcp45 10/03/2014 10/03/2014 MD rtuh Fay 41c8a4w2-2815-18xi-9w83-21n2bfi965p2 10/03/2014 10/03/2014 MD ruth Fay 3sgy7h30-727z-37s2-1s3a-4up78990j6j4 10/03/2014 10/03/2014 MD ruth Fay 7stg50u5-3nqz-23sk-qhew-03p26p274c5w 10/03/2014 10/03/2014 MD ruth Fay 1b22v28u-4506-3xir-392k-r5p7i1171341 10/03/2014 10/03/2014 MD ruth Fay 0d6noa38-w406-6462-69v0-3ju0996124nj 10/03/2014 10/03/2014 MD ruth Fay 23xss716-b3n2-4s62-24r8-p32v0u6p7621 10/03/2014 10/03/2014 Rashaad Curtis MD prolia 778uw933-4t3o-2ys9-550p-v661v70e7851 10/03/2014 10/03/2014 Rashaad Curtis MD Unknown [id number]-[id number]-wkmk746u54xz 10/21/2014 10/21/2014 Rashaad Curtis MD Unknown odp3y9pl-ym1v-1m2u-2168-a95j0hwu7231 10/21/2014 10/21/2014 Rashaad Curtis MD Unknown m54bn666-3965-2wk2-wh56-d5rl3unt87x0 10/21/2014 10/21/2014 Rashaad Curtis MD Unknown 8wb1y39j-a825-9396-v921-i0hgt6879fm0 10/21/2014 10/21/2014 Rashaad Curtis MD Unknown d4rk38pe-k09h-3c8q-s4bx-k8l7c549x327 10/21/2014 10/21/2014 Rashaad Curtis MD Unknown 450dq5fb-6r90-24cw-2574-4w77v3g51zz4 10/21/2014 10/21/2014 Rashaad Curtis MD Unknown 28i1wm4n-079d-5y8m-5gj3-9uuwi7962m84 10/21/2014 10/21/2014 Rashaad Curtis MD Unknown [id number] 10/21/2014 10/21/2014 Rashaad Curtis MD Unknown yb1v09q9-913k-06rp-j4p3-7r8m7i29n200 10/21/2014 10/21/2014 Rashaad Curtis MD Unknown [id number] 10/21/2014 10/21/2014 Rashaad Curtis MD Unknown [id number]-ry7r-7c50plxm3806 10/21/2014 10/21/2014 Rashaad Curtis MD Unknown z8f51dx1-02j5-2y20-5d77-7173x367pnv2 10/21/2014 10/21/2014 Rashaad Curtis MD Unknown 8v73wdya-24w3-939b-530u-7775172s56xp 10/21/2014 10/21/2014 Rashaad Curtis MD Unknown gr536c48-586p-8n27-08xw-i768i10at69x 10/21/2014 10/21/2014 Rashaad Curtis MD Unknown [id number]-ga0j-[id number] 10/21/2014 10/21/2014 Rashaad Curtis MD DEXA xs294786-sy28-2p77-757q-zia401t36e6e 11/13/2014 11/13/2014 Rashaad Curtis MD DEXA 78cg6066-1on9-2775-7dv9-6x2f1e014098 11/13/2014 11/13/2014 Rashaad Curtis MD DEXA 2u1569yr-70t5-39ei-h6ik-2ota7i53332a 11/13/2014 11/13/2014 Rashaad Curtis MD DEXA [id number]-4yd7-51qy-is7536227838 11/13/2014 11/13/2014 Rashaad Curtis MD DEXA 34796c77-2jxi-2495-s45o-4p71309g8755 11/13/2014 11/13/2014 Rashaad Curtis MD DEXA 95571h72-ri0f-6y12-61l1-775907k57884 11/13/2014 11/13/2014 Rashaad Curtis MD DEXA 10qn6md3-ksus-55t3-u669-3l39p52c8wu5 11/13/2014 11/13/2014 Rashaad Curtis MD DEXA 200532v5-8n8k-579s-ta55-611925s61849 11/13/2014 11/13/2014 Rashaad Curtis MD DEXA 60hm33xg-3w01-2x0p-u73i-154o2xh77392 11/13/2014 11/13/2014 Rashaad Curtis MD DEXA ji1lcehv-h0g5-99nx-780l-14ak34681xlg 11/13/2014 11/13/2014 Rashaad Curtis MD DEXA 0wke3oy4-c925-418l-6z41-gc493z4t1276 11/13/2014 11/13/2014 Rashaad Curtis MD DEXA pcyoukte-2k98-10n83y43-24g0-t49i-22e93s12e4h2 11/13/2014 11/13/2014 Rashaad Curtis MD DEXA 9842y52x-6kc0-1119-w2z2-i51c13o1f485 11/13/2014 11/13/2014 Rashaad Curtis MD DEXA p1j5565h-m70m-6ly3-u518-720i21ie41xk 11/13/2014 11/13/2014 Rashaad Curtis MD DEXA isy6hd22-z198-38uk-8119-p24ndrx088vr 11/13/2014 11/13/2014 Rashaad Curtis MD f/u 58z9oqnj-24gn-18n5-7475-1p1p09637u91 01/05/2015 01/05/2015 Rashaad Curtis MD f/u 2a063390-5457-26tb-828s-3o7ja047055m 01/05/2015 01/05/2015 Rashaad Curtis MD f/u 44r9idx6-369r-02e8-t914-764115x4j47h 01/05/2015 01/05/2015 Rashaad Curtis MD f/u 8358c965-2k9f-2q10-0ui8-609c7409d5l6 01/05/2015 01/05/2015 Rashaad Curtis MD f/u 7o1qu430-x95i-394p-lg42-fv73p22mp7r7 01/05/2015 01/05/2015 Rashaad Curtis MD f/u 0gk5b7l7-2t0y-4d3z-r935-4wfy7z5f1jn4 01/05/2015 01/05/2015 Rashaad Curtis MD f/u 2wj58m27-2u02-4g89-k566-m95094225k04 01/05/2015 01/05/2015 Rashaad Curits MD f/u 8cr28617-3d00-37pd-yj5p-3292k1396ql1 01/05/2015 01/05/2015 Rashaad Curtis MD f/u 9em00560-h01p-76t7-cdvy-p6751x8qv07a 01/05/2015 01/05/2015 Rashaad Curtis MD f/u 57u1iw9e-4qx4-6eae-v91r-921p3426f03e 01/05/2015 01/05/2015 Rashaad Curtis MD f/u 2etp1ul3-g383-615r-q599-o707v35a3byz 01/05/2015 01/05/2015 Rashaad Curtis MD f/u [id number]-[id number] 01/05/2015 01/05/2015 Rashaad Curtis MD f/u [id number]-96o4-hzbj-6u762u80nw9v 01/05/2015 01/05/2015 Rashaad Curtis MD f/u ksc9dapk-602q-8591-86p4-666isc65cb37 01/05/2015 01/05/2015 Rashaad Curtis MD f/u [id number]-5887-c09i73503cp3 01/05/2015 01/05/2015 Rashaad Curtis MD refill [id number]-d09f-88m6-6h74-3m79j7pot9cs 04/27/2015 04/27/2015 Rashaad Curtis MD refill [id number]-p917-p48e5283tn9z 04/27/2015 04/27/2015 Rashaad Curtis MD refill [id number]-j1g8-x3ymz53225pb 04/27/2015 04/27/2015 Rashaad Curtis MD refill [id number]-p9fz-59op36hn5r0t 04/27/2015 04/27/2015 Rashaad Curtis MD refill [id number] 04/27/2015 04/27/2015 Rashaad Curtis MD refill [id number]-s59q-9b28hfi352jv 04/27/2015 04/27/2015 Rashaad Curtis MD refill [id number]-l82x-[id number] 04/27/2015 04/27/2015 Rashaad Curtis MD refill [id number] 04/27/2015 04/27/2015 Rashaad Curtis MD refill [id number]-xw2r-0mc6-18n5-6429o232057s 04/27/2015 04/27/2015 Rashaad Curtis MD refill [id number]-v7p6-49s5-owi0-t15q6597a17k 04/27/2015 04/27/2015 Rashaad Curtis MD refill [id number]-[id number]-j804-9799759sz46v 04/27/2015 04/27/2015 Rashaad Curtis MD refill [id number]-[id number] 04/27/2015 04/27/2015 Rashaad Curtis MD refill [id number] 04/27/2015 04/27/2015 Rashaad Curtis MD refill [id number]-1ec8-dzwi-[id number] 04/27/2015 04/27/2015 Rashaad Curtis MD refill [id number] 04/27/2015 04/27/2015 Rashaad Curtis MD DEXA [id number] 05/10/2015 05/10/2015 Rashaad Curtis MD DEXA [id number]-4930-4846k3348f7g 05/10/2015 05/10/2015 Rashaad Curtis MD DEXA [id number] 05/10/2015 05/10/2015 Rashaad Curtis MD DEXA [id number] 05/10/2015 05/10/2015 Rashaad Curtis MD DEXA z94ir1hq-ru7s-085n-x126-26ol859zo01y 05/10/2015 05/10/2015 Rashaad Curtis MD DEXA [id number]-[id number] 05/10/2015 05/10/2015 Rashaad Curtis MD DEXA [id number] 05/10/2015 05/10/2015 Rashaad Curtis MD DEXA [id number]-[id number] 05/10/2015 05/10/2015 Rashaad Curtis MD DEXA [id number]-[id number] 05/10/2015 05/10/2015 Rashaad Curtis MD DEXA [id number]-2817-j3c30824d204 05/10/2015 05/10/2015 Rashaad Curtis MD DEXA 74mch473-[id number]-q80n-nrdh4132oh59 05/10/2015 05/10/2015 Rashaad Curtis MD DEXA [id number]-b8l8-269n8x589g07 05/10/2015 05/10/2015 Rashaad Curtis MD DEXA [id number]-c9o2-8jh0ap9m2146 05/10/2015 05/10/2015 Rashaad Curtis MD DEXA [id number]-[id number]-[id number] 05/10/2015 05/10/2015 Rashaad Curtis MD DEXA [id number] 05/10/2015 05/10/2015 Rashaad Curtis MD Unknown [id number] 05/23/2015 05/23/2015 Rashaad Curtis MD Unknown [id number] 05/23/2015 05/23/2015 Rashaad Curtis MD Unknown [id number] 05/23/2015 05/23/2015 Rashaad Curtis MD Unknown [id number] 05/23/2015 05/23/2015 Rashaad Curtis MD Unknown [id number] 05/23/2015 05/23/2015 Rashaad Curtis MD Unknown [id number] 05/23/2015 05/23/2015 Rashaad Curtis MD Unknown [id number] 05/23/2015 05/23/2015 Rashaad Curtis MD Unknown [id number] 05/23/2015 05/23/2015 Rashaad Curtis MD Unknown [id number] 05/23/2015 05/23/2015 Rashaad Curtis MD Unknown [id number] 05/23/2015 05/23/2015 Rashaad Curtis MD Unknown [id number] 05/23/2015 05/23/2015 Rashaad Curtis MD Unknown [id number] 05/23/2015 05/23/2015 Rashaad Curtis MD Unknown [id number] 05/23/2015 05/23/2015 Rashaad Curtis MD Unknown [id number] 05/23/2015 05/23/2015 Rashaad Curtis MD Unknown [id number] 05/23/2015 05/23/2015 Rashaad Curtis MD DEXA [id number] 06/02/2015 06/02/2015 Rashaad Curtis MD DEXA [id number]-qhr5-64n9tz2bu8c0 06/02/2015 06/02/2015 Rashaad Curtis MD DEXA [id number] 06/02/2015 06/02/2015 Rashaad Curtis MD DEXA [id number]-[id number] 06/02/2015 06/02/2015 Rashaad Curtis MD DEXA [id number]-[id number] 06/02/2015 06/02/2015 Rashaad Curtis MD DEXA [id number]-88t0-087n-zqhh-84s9bb98c7kg 06/02/2015 06/02/2015 Rashaad Curtis MD DEXA [id number] 06/02/2015 06/02/2015 Rashaad Curtis MD DEXA [id number] 06/02/2015 06/02/2015 Rashaad Curtis MD DEXA [id number] 06/02/2015 06/02/2015 Rashaad Curtis MD DEXA [id number]-2mxl-u83n-wpcd50qrsd94 06/02/2015 06/02/2015 Rashaad Curtis MD DEXA [id number]-twar-0312i100759g 06/02/2015 06/02/2015 Rashaad Curtis MD DEXA [id number] 06/02/2015 06/02/2015 Rashaad Curtis MD DEXA [id number] 06/02/2015 06/02/2015 Rashaad Curtis MD DEXA [id number]-[id number] 06/02/2015 06/02/2015 Rashaad Curtis MD DEXA [id number]-d363-uua4g6eeu30y 06/02/2015 06/02/2015 Rashaad Curtis MD LABS [id number]-31pm-74nx324sxv95 08/31/2015 08/31/2015 Rashaad Curtis MD LABS [id number]-w80y2ncx4v8r 08/31/2015 08/31/2015 Rashaad Curtis MD LABS ng91jkqu-[id number]-968fpo98hil0 08/31/2015 08/31/2015 Rashaad Curtis MD LABS [id number]-23r8-5l8t-[id number] 08/31/2015 08/31/2015 Rashaad Curtis MD LABS [id number] 08/31/2015 08/31/2015 Rashaad Curtis MD LABS [id number]-[id number] 08/31/2015 08/31/2015 Rashaad Curtis MD LABS [id number]-[id number] 08/31/2015 08/31/2015 Rashaad Curtis MD LABS [id number]-r6p60xp32r08 08/31/2015 08/31/2015 Rashaad Curtis MD LABS [id number]-uv8z-gv8t0458nh18 08/31/2015 08/31/2015 Rashaad Curtis MD LABS [id number] 08/31/2015 08/31/2015 Rashaad Curtis MD LABS [id number]-o013-1026t02r931d 08/31/2015 08/31/2015 Rashaad Curtis MD LABS [id number]-04ya-322ek3dz7h36 08/31/2015 08/31/2015 Rashaad Curtis MD LABS [id number]-x4tnp1k9qxl9 08/31/2015 08/31/2015 Rashaad Curtis MD LABS [id number] 08/31/2015 08/31/2015 Rashaad Curtis MD 4 mo f/u [id number]-0m94-3m72t1bs4359 09/07/2015 09/07/2015 Rashaad Curtis MD 4 mo f/u 67dx0q1s-0rg0-69u7-209y-9t9f7kw5r957 09/07/2015 09/07/2015 Rashaad Curtis MD 4 mo f/u [id number]-jbe866lp1524 09/07/2015 09/07/2015 Rashaad Curtis MD 4 mo f/u [id number]-wg104l05i7hk 09/07/2015 09/07/2015 Rashaad Curtis MD 4 mo f/u [id number]-t75a-15r8a7127q03 09/07/2015 09/07/2015 Rashaad Curtis MD 4 mo f/u [id number] 09/07/2015 09/07/2015 Rashaad Curtis MD 4 mo f/u r84b562l-5rw9-6s81-9p23-066wkw7v10vu 09/07/2015 09/07/2015 Rashaad Curtis MD 4 mo f/u [id number] 09/07/2015 09/07/2015 Rashaad Curtis MD 4 mo f/u [id number]-81uh-4e3126btk51u 09/07/2015 09/07/2015 Rashaad Curtis MD 4 mo f/u [id number]-zaf552z17s88 09/07/2015 09/07/2015 Rashaad Curtis MD 4 mo f/u [id number] 09/07/2015 09/07/2015 Rashaad Curtis MD 4 mo f/u [id number]-c20t-8hf5-wg4y-6q444dfbl7x4 09/07/2015 09/07/2015 Rashaad Curtis MD 4 mo f/u [id number]-i6tx-o977jex6y2x2 09/07/2015 09/07/2015 MD SHAHBAZ FayIA [id number] 09/12/2015 09/12/2015 MD RUTH Fay [id number] 09/12/2015 09/12/2015 MD RUTH Fay [id number] 09/12/2015 09/12/2015 MD SHAHBAZ FayIA [id number] 09/12/2015 09/12/2015 MD RUTH Fay [id number]-[id number] 09/12/2015 09/12/2015 MD RUTH Fay [id number]-r289-5o76kl56mb48 09/12/2015 09/12/2015 MD RUTH Fay [id number]-38nd-2g923x2eh0uo 09/12/2015 09/12/2015 MD SHAHBAZ FayIA [id number]-004l-68l8-z3e41a6n0075 09/12/2015 09/12/2015 Rashaad Curtis MD PROLIA [id number] 09/12/2015 09/12/2015 Rashaad Curtis MD PROLIA [id number] 09/12/2015 09/12/2015 Rashaad Curtis MD PROLIA [id number] 09/12/2015 09/12/2015 Rashaad Curtis MD PROLIA [id number] 09/12/2015 09/12/2015 Rashaad Curtis MD DEXA [id number] 09/14/2015 09/14/2015 Rashaad Curtis MD DEXA [id number] 09/14/2015 09/14/2015 Rashaad Curtis MD DEXA [id number] 09/14/2015 09/14/2015 Rashaad Curtis MD DEXA [id number] 09/14/2015 09/14/2015 Rashaad Curtis MD DEXA [id number] 09/14/2015 09/14/2015 Rashaad Curtis MD DEXA [id number] 09/14/2015 09/14/2015 Rashaad Curtis MD DEXA [id number] 09/14/2015 09/14/2015 Rashaad Curtis MD DEXA [id number] 09/14/2015 09/14/2015 Rashaad Curtis MD DEXA [id number] 09/14/2015 09/14/2015 Rashaad Curtis MD DEXA [id number] 09/14/2015 09/14/2015 Rashaad Curtis MD DEXA [id number] 09/14/2015 09/14/2015 Rashaad Curtis MD not a candidate for research [id number] 11/06/2015 11/06/2015 Rashaad Curtis MD not a candidate for research [id number] 11/06/2015 11/06/2015 Rashaad Curtis MD not a candidate for research [id number] 11/06/2015 11/06/2015 Rashaad Curtis MD not a candidate for research [id number] 11/06/2015 11/06/2015 Rashaad Curtis MD not a candidate for research [id number] 11/06/2015 11/06/2015 Rashaad Curtis MD not a candidate for research [id number] 11/06/2015 11/06/2015 Rashaad Curtis MD not a candidate for research [id number] 11/06/2015 11/06/2015 Rashaad Curtis MD not a candidate for research [id number] 11/06/2015 11/06/2015 Rashaad Curtis MD not a candidate for research [id number] 11/06/2015 11/06/2015 Rashaad Curtis MD not a candidate for research [id number] 11/06/2015 11/06/2015 Rashaad Curtis MD Medical Necessity [id number] 12/04/2015 12/04/2015 Rashaad Curtis MD Medical Necessity [id number] 12/04/2015 12/04/2015 Rashaad Curtis MD Medical Necessity [id number] 12/04/2015 12/04/2015 Rashaad Curtis MD Medical Necessity [id number] 12/04/2015 12/04/2015 Rashaad Curtis MD Medical Necessity [id number] 12/04/2015 12/04/2015 Rashaad Curtis MD Medical Necessity [id number] 12/04/2015 12/04/2015 Rashaad Curtis MD Medical Necessity [id number] 12/04/2015 12/04/2015 Rashaad Curtis MD Medical Necessity [id number] 12/04/2015 12/04/2015 Rashaad Curtis MD Medical Necessity [id number] 12/04/2015 12/04/2015 Rashaad Curtis MD 3month Follow UP [id number] 01/03/2016 01/03/2016 Rashaad Curtis MD 3month Follow UP [id number] 01/03/2016 01/03/2016 Rashaad Curtis MD 3month Follow UP [id number] 01/03/2016 01/03/2016 Rashaad Curtis MD 3month Follow UP [id number] 01/03/2016 01/03/2016 Rashaad Curtis MD 3month Follow UP [id number] 01/03/2016 01/03/2016 Rashaad Curtis MD 3month Follow UP [id number] 01/03/2016 01/03/2016 Rashaad Curtis MD 3month Follow UP [id number] 01/03/2016 01/03/2016 Rashaad Curtis MD 3month Follow UP [id number] 01/03/2016 01/03/2016 Rashaad Curtis MD Prolia 03/14 [id number] 02/01/2016 02/01/2016 MD Ruth Fay 03/14 [id number] 02/01/2016 02/01/2016 Rashaad Curtis MD Proleugene 03/14 [id number] 02/01/2016 02/01/2016 Rashaad Curtis MD Proleugene 03/14 [id number] 02/01/2016 02/01/2016 Rashaad Curtis MD Proleugene 03/14 [id number] 02/01/2016 02/01/2016 Rashaad Curtis MD Proleugene 03/14 [id number] 02/01/2016 02/01/2016 Rashaad Curtis MD Prolia 03/14 [id number] 02/01/2016 02/01/2016 Rashaad Curtis MD labs [id number] 02/27/2016 02/27/2016 Rashaad Curtis MD labs [id number] 02/27/2016 02/27/2016 Rashaad Curtis MD labs [id number] 02/27/2016 02/27/2016 Rashaad Curtis MD labs [id number] 02/27/2016 02/27/2016 Rashaad Curtis MD labs [id number] 02/27/2016 02/27/2016 Rashaad Curtis MD labs [id number] 02/27/2016 02/27/2016 Rashaad Curtis MD labs [id number] 02/27/2016 02/27/2016 Rashaad Curtis MD Rx/Lab results [id number] 03/04/2016 03/04/2016 Rashaad Curtis MD Rx/Lab results [id number] 03/04/2016 03/04/2016 Rashaad Curtis MD Rx/Lab results [id number] 03/04/2016 03/04/2016 Rashaad Curtis MD Rx/Lab results [id number] 03/04/2016 03/04/2016 Rashaad Curtis MD Rx/Lab results [id number] 03/04/2016 03/04/2016 Rashaad Curtis MD Unknown [id number] 03/14/2016 03/14/2016 Rashaad Curtis MD Unknown [id number] 03/14/2016 03/14/2016 Rashaad Curtis MD Unknown [id number] 03/14/2016 03/14/2016 Rashaad Curtis MD Unknown [id number] 03/14/2016 03/14/2016 Rashaad Curtis MD 6 WK FU [id number] 04/23/2016 04/23/2016 Rashaad Curtis MD 6 WK FU [id number] 04/23/2016 04/23/2016 Rashaad Curtis MD 6 WK FU [id number] 04/23/2016 04/23/2016 Rashaad Curtis MD 2 mth follow up [id number] 06/24/2016 06/24/2016 Rashaad Curtis MD 2 mth follow up [id number] 06/24/2016 06/24/2016 Rashaad Curtsi MD 2 mth follow up [id number] 09/16/2016 09/16/2016 Rashaad Curtis MD meds refill [id number] 10/31/2016 10/31/2016 Rashaad Curtis [facility] [id number] F/U [facility] Cancel [facility] Procedures Procedure Code Date Perfomer Comments Source
--- OUTSIDE RECORDS SUMMARY | 2019-02-04 12:31 | XMS REPORT ---
Author Author Amadeo Curtis [facility] eClinicalWorks Address Unknown Phone Unavailable Care Team Providers Care Network Systems Integrator Name Role Phone Amadeo Curtis Unavailable Allergies No Known Allergies Problems Problem Type Condition Code Onset Dates Condition Status Problem Encounter for long-term (current) use of other high-risk medications Z79.899 Active Problem Left hip pain M25.552 Active Problem Age-related osteoporosis without current pathological fracture M81.0 Active Problem Anxiety F41.9 Active Problem Xanax use disorder, mild F13.10 Active Problem Neck pain M54.2 Active Problem Rheumatoid arthritis of multiple sites with negative rheumatoid factor M06.09 Active Problem Polyarthritis M13.0 Active Problem Sleep disorder G47.9 Active Problem Raynauds phenomenon without gangrene I73.00 Active Assessment Age-related osteoporosis without current pathological fracture M81.0 Active Problem Vitamin D deficiency E55.9 Active Problem Lupus M32.9 Active Medications Medication Code System Code Instructions Start Date End Date Status Dosage Clobetasol Propionate [facility] 59717691161 0.05% Active USE 1 APPLICATION ON AFFECTED AREA EXTERNALLY TWICE A DAY PredniSONE [facility] 48250530709 5MG Orally once a day Active take 1 tablet daily with food or milk Erythromycin Ethylsuccinate [facility] 17865659538 400 MG Orally four times a day Active 1 tablet Zofran [facility] 56375670152 Orally as needed Active 1 tablet Promethazine HCl [facility] 30994878401 25 MG Orally q6hrs prn Active 1 tablet Dexilant [facility] 71144225926 60 MG Orally twice a day Active 1 capsule Zolpidem Tartrate [facility] 24305439797 10 MG Orally at bedtime Active 1 tablet at bedtime as needed Pennsaid [facility] 42530385389 2 % Transdermal Twice a day Active 2 applications to affected area Nystatin [facility] 07224686256 637793 UNIT/GM Externally as needed Active 1 application to affected area Hydroxychloroquine Sulfate [facility] 18449454249 200MG BID Active 1 tablet Benadryl [facility] 41601401534 25 MG Orally as needed Active 2 tablets Metoprolol Tartrate ND 88096262248 50 MG Orally twice a day Active 1 tablet Lexapro ND 73400567011 20 MG Orally Once a day Active 1 tablet Xanax ND 94559692226 1 MG Orally once a day Active 1-2 tablets Vitamin D ND 65050590298 1000 UNIT Orally Once a day Active 1 tablet Folic Acid ND 12878239237 1 MG Orally Once a day Active 1 tablet Prolia [facility] 36156922784 60 MG/ML Subcutaneous Q 6 MONTHS Active 1 injection Potassium Chloride CR NDC 0 10 MEQ Orally every day Active 2 tablets [place] ND 54656686652 10-325 MG Orally every 6 hrs Active 1 tablet as needed Pyridium ND 33266760777 100 MG Orally QID Active 1 tablet Vitamin B-1 ND 19206518711 250 MG Orally Active as directed Macrobid ND 46899538500 100 MG Orally once a day Active 1 capsule with food Synthroid [facility] 81611538424 175 MCG Orally Once a day Active 1 tablet every morning on an empty stomach Citracal + D [facility] 71103490141 315-200 MG-UNIT Orally Twice a day Active 1 tablet with meals Vitamin C ND 26512008539 500 MG Orally once a day Active as directed Vitamin B-12 ND 58014834083 1000 MCG Orally Once a day Active 1 tablet Results No Known Results Summary Purpose eClinicalWorks Submission
--- OUTSIDE RECORDS SUMMARY | 2019-02-04 12:31 | XMS REPORT ---
Author Author Amadeo Curtis [facility] eClinicalWorks Address Unknown Phone Unavailable Care Team Providers Care Supplemental Manager Name Role Phone Amadeo Curtis CP Unavailable Allergies, Adverse Reactions, Alerts Substance Reaction Event Type penicillin Info Not Available Non Drug Allergy morphine Info Not Available Non Drug Allergy codiene Info Not Available Non Drug Allergy biaxin Info Not Available Non Drug Allergy Forteo Info Not Available Non Drug Allergy paper tape Info Not Available Non Drug Allergy Problems Problem Type Condition Code Onset Dates Condition Status Problem Polyarthritis M13.0 Active Problem Rheumatoid arthritis of multiple sites with negative rheumatoid factor M06.09 Active Problem Left hip pain M25.552 Active Problem Hypothyroidism, unspecified type E03.9 Active Assessment Vitamin D deficiency E55.9 Active Problem Xanax use disorder, mild F13.10 Active Assessment Raynauds phenomenon without gangrene I73.00 Active Assessment Hypothyroidism, unspecified type E03.9 Active Problem Primary insomnia F51.01 Active Problem Neck pain M54.2 Active Problem Raynauds phenomenon without gangrene I73.00 Active Problem Sleep disorder G47.9 Active Problem Anxiety F41.9 Active Assessment Rheumatoid arthritis of multiple sites with negative rheumatoid factor M06.09 Active Assessment Age-related osteoporosis without current pathological fracture M81.0 Active Assessment Encounter for long-term (current) use of other high-risk medications Z79.899 Active Assessment Anxiety F41.9 Active Problem Vitamin D deficiency E55.9 Active Problem Lupus M32.9 Active Assessment Lupus M32.9 Active Problem Encounter for long-term (current) use of other high-risk medications Z79.899 Active Assessment Primary insomnia F51.01 Active Problem Age-related osteoporosis without current pathological fracture M81.0 Active Medications Medication Code System Code Instructions Start Date End Date Status Dosage Xanax NDC 35362692711 1 MG Orally once a day Active 1-2 tablets Zofran NDC 11378348702 Orally as needed Active 1 tablet Erythromycin Ethylsuccinate ND 72381082544 400 MG Orally four times a day Active 1 tablet PredniSONE [facility] 20196059340 5MG Orally once a day Active take 1 tablet daily with food or milk Dexilant [facility] 07240789305 60 MG Orally twice a day Active 1 capsule Pyridium [facility] 27039868467 100 MG Orally QID Active 1 tablet Vitamin C [facility] 23927393300 500 MG Orally once a day Active as directed Macrobid ND 56512128716 100 MG Orally once a day Active 1 capsule with food Folic Acid [facility] 65158472348 1 MG Orally Once a day Active 1 tablet Hydroxychloroquine Sulfate [facility] 78608377814 200MG Active TAKE 1 TABLET TWICE A DAY WITH FOOD OR MILK Synthroid [facility] 01309355202 175 MCG Orally Once a day Active 1 tablet every morning on an empty stomach Benadryl [facility] 76486431741 25 MG Orally as needed Active 2 tablets Vitamin B-1 [facility] 79358319895 250 MG Orally Active as directed Citracal + D [facility] 97252567829 315-200 MG-UNIT Orally Twice a day Active 1 tablet with meals Percocet [facility] 28069173630 10-325 MG Orally every 6 hrs Active 1 tablet as needed Nystatin [facility] 46083591471 613148 UNIT/GM Externally as needed Active 1 application to affected area Clobetasol Propionate [facility] 24179557868 0.05% Active USE 1 APPLICATION ON AFFECTED AREA EXTERNALLY TWICE A DAY Vitamin B-12 [facility] 72352843944 1000 MCG Orally Once a day Active 1 tablet Potassium Chloride CR ND 0 10 MEQ Orally every day Active 2 tablets Pennsaid [facility] 63581838538 2 % Transdermal Twice a day Active 2 applications to affected area Vitamin D [facility] 90826002412 1000 UNIT Orally Once a day Active 1 tablet Keflex [facility] 37976839116 500 MG Orally every 12 hrs Active 1 capsule Lexapro [facility] 02850869495 20 MG Orally Once a day Active 1 tablet Prolia [facility] 99896029022 60 MG/ML Subcutaneous Q 6 MONTHS Active 1 injection Promethazine HCl [facility] 39481116106 25 MG Orally q6hrs prn Active 1 tablet Zolpidem Tartrate [facility] 73292331796 10 MG Orally at bedtime Active 1 tablet at bedtime as needed Escitalopram Oxalate [facility] 81135439772 20MG Active TAKE 1 TABLET ONCE DAILY Metoprolol Tartrate [facility] 55213857572 50 MG Orally twice a day Active 1 tablet Vital Signs Date/Time: Oct 13, 2018 BMI 42.56 Index Weight 248 lbs Height 64 in Temperature 97.8 F Cardiac Monitoring Heart Rate 72 /min Blood Pressure Diastolic 70 mm Hg Blood Pressure Systolic 122 mm Hg Results No Known Results Summary Purpose eClinicalWorks Submission
--- OUTSIDE RECORDS SUMMARY | 2019-02-04 12:31 | XMS REPORT ---
Author Amadeo Mcdaniel Organization eClinicalWorks Address Unknown Phone Unavailable Care Team Providers Care Supervisor [employer] Name Role Phone Amadeo Curtis CP Unavailable Allergies No Known Allergies Problems Problem Type Condition Code Onset Dates Condition Status Problem Vitamin D deficiency E55.9 Active Problem Rheumatoid arthritis of multiple sites with negative rheumatoid factor M06.09 Active Problem Left hip pain M25.552 Active Problem Raynauds phenomenon without gangrene I73.00 Active Problem Encounter for long-term (current) use of other high-risk medications Z79.899 Active Problem Lupus M32.9 Active Problem Polyarthritis M13.0 Active Problem Age-related osteoporosis without current pathological fracture M81.0 Active Medications No Known Medications Results No Known Results Summary Purpose [employer] Submission
--- OUTSIDE RECORDS SUMMARY | 2019-02-04 12:31 | XMS REPORT ---
Author Author Masoud Ureña Organization eClinicalWorks Address Unknown Phone Unavailable Care Team Providers Care Intake Assessor Name Role Phone Masoud Ureña CP Unavailable Allergies, Adverse Reactions, Alerts Substance [...] Active Problem Vitamin D deficiency E55.9 Active Assessment Lupus M32.9 Active Assessment Raynauds phenomenon without gangrene I73.00 Active Assessment Vitamin D deficiency E55.9 Active Problem Rheumatoid arthritis of multiple sites with negative rheumatoid factor M06.09 Active Problem Polyarthritis M13.0 Active Problem Raynauds phenomenon without gangrene I73.00 Active Problem Lupus M32.9 Active Problem Encounter for long-term (current) use of other high-risk medications Z79.899 Active Problem Left hip pain M25.552 Active Problem Age-related osteoporosis without current pathological fracture M81.0 Active Medications Medication Code System Code Instructions Start Date End Date Status Dosage Vitamin B-12 [facility] [address]-28 1000 MCG Orally Once a day Active 1 tablet Vitamin B-1 [facility] [address]-46 250 MG Orally once a day Active as directed Lidocaine [facility] [address]-53 5 % Externally Once a day Jun 03, 2017 Active 1 patch to skin remove after 12 hours Citracal + D [facility] [address]-61 315-200 MG-UNIT Orally Twice a day Active 1 tablet with meals Macrobid [facility] [address]-30 100 MG Orally once a day Active 1 capsule with food Hydroxychloroquine Sulfate [facility] 36350562170 200 MG Orally twice a day Active take 1 tablet twice a day Potassium Chloride CR ND 0 10 MEQ Orally every day Active 2 tablets Magnesium [facility] [address]33-[address]68 400 MG Orally once a day Active as directed Vitamin D [facility] [address]-46 1000 UNIT Orally Once a day Active 1 tablet Promethazine HCl [facility] [address]-01 25 MG Orally q6hrs prn Active 1 tablet PredniSONE [facility] 78851020764 5MG Orally once a day Active take 1 tablet daily with food or milk Zofran [facility] [address]-94 Orally as needed Active 1 tablet Prolia [facility] [address]-26 60 MG/ML Subcutaneous Q 6 MONTHS Active 1 injection Pennsaid [facility] [address]-65 2 % Transdermal Twice a day April 22, 2017 Active 2 applications to affected area Metoprolol Tartrate [facility] [address]-45 50 MG Orally twice a day Active 1 tablet Benadryl [facility] [address]-73 25 MG Orally as needed Active 2 tablets Erythromycin Ethylsuccinate [facility] [address]-04 400 MG Orally four times a day Active 1 tablet Folic Acid [facility] 78182734006 1MG Orally twice a day Active 1 tablet Vitamin C [facility] [address]-21001 500 MG Orally once a day Active as directed Xanax [facility] [address]-61 1 MG Orally once a day Active 1 tablet Dexilant [facility] [address]-09 60 MG Orally twice a day Active 1 capsule Clobetasol Propionate [facility] [address]-30 0.05 % Externally as needed Jun 14, 2017 Active 1 application to affected area Nystatin [facility] [address]-34 901710 UNIT/GM Externally as needed Active 1 application to affected area Lexapro [facility] [address]-75 20 MG Orally Once a day Active 1 tab Synthroid [facility] [address]-34 137 MCG Orally Once a day Active 1 tablet every morning on an empty stomach Braman [facility] [address]-10 10-325 MG Orally every 6 hrs Active 1 tablet as needed Vital Signs Date/Time: Jun 03, 2017 BMI 46.13 Index Weight 268.8 lbs Height 64 in Temperature 97.6 F Cardiac Monitoring Heart Rate 80 /min Blood Pressure Diastolic 70 mm Hg Blood Pressure Systolic 110 mm Hg Results No Known Results Summary Purpose eClinicalWorks Submission
--- OUTSIDE RECORDS SUMMARY | 2019-02-04 12:31 | XMS REPORT ---
Author Amadeo Mcdaniel Organization eClinicalWorks Address Unknown Phone Unavailable Care Team Providers Care Tower Hand Name Role Phone Amadeo Curtis CP Unavailable Allergies No Known Allergies Problems Problem Type Condition Code Onset Dates Condition Status Assessment Vitamin D deficiency E55.9 Active Problem Vitamin D deficiency E55.9 Active Assessment Age-related osteoporosis without current pathological fracture M81.0 Active Problem Rheumatoid arthritis of multiple sites [...] Medications Results No Known Results Summary Purpose [facility] Submission
--- OUTSIDE RECORDS SUMMARY | 2019-02-04 12:31 | XMS REPORT ---
Author Author Amadeo Curtis [facility] eClinicalWorks Address Unknown Phone Unavailable Care Team Providers Care Banking Assistant Name Role Phone Amadeo Curtis CP Unavailable Allergies, Adverse Reactions, Alerts Substance Reaction Event Type Forteo Info Not Available Non Drug Allergy [...] deficiency E55.9 Active Assessment Lupus M32.9 Active Problem Rheumatoid arthritis of multiple sites with negative rheumatoid factor M06.09 Active Problem Left hip pain M25.552 Active Problem Raynauds phenomenon without gangrene I73.00 Active Problem Encounter for long-term (current) use of other high-risk medications Z79.899 Active Problem Lupus M32.9 Active Problem Polyarthritis M13.0 Active Problem Age-related osteoporosis without current pathological fracture M81.0 Active Assessment Vitamin D deficiency E55.9 Active Assessment Encounter for long-term (current) use of other high-risk medications Z79.899 Active Assessment Rheumatoid arthritis of multiple sites with negative rheumatoid factor M06.09 Active Assessment Polyarthritis M13.0 Active Assessment Raynauds phenomenon without gangrene I73.00 Active Medications Medication Code System Code Instructions Start Date End Date Status Dosage Citracal + D [facility] 70195481123 315-200 MG-UNIT Orally Twice a day Active 1 tablet with meals Vitamin C ND 30034898600 500 MG Orally once a day Active as directed Benadryl ND 97059620936 25 MG Orally as needed Active 2 tablets Xanax ND 39760293541 1 MG Orally once a day Active 1 tablet Promethazine HCl ND 90845952920 25 MG Orally q6hrs prn Active [address] [facility] 20446578065 60 MG Orally twice a day Active 1 capsule Hydroxychloroquine Sulfate NDC 09017137098 200 MG Orally twice a day Jul 28, 2017 Active 1 tablet with food or milk Nystatin [facility] 99191267027 307727 UNIT/GM Externally as needed Active 1 application to affected area Vitamin D ND 53495033063 1000 UNIT Orally Once a day Active 1 tablet Vitamin B-1 ND 54777049597 250 MG Orally Active as directed Erythromycin Ethylsuccinate [facility] 74490510699 400 MG Orally four times a day Active 1 tablet Macrobid ND 96708780348 100 MG Orally once a day Active 1 capsule with food Folic Acid ND 04777403313 1 MG Orally Once a day Active 1 tablet Pennsaid ND 82359072011 2 % Transdermal Twice a day April 22, 2017 Active 2 applications to affected area PredniSONE ND 16408770098 5MG Orally once a day Active take 1 tablet daily with food or milk Potassium Chloride CR NDC 0 10 MEQ Orally every day Active 2 tablets Vitamin B-12 ND 12226248016 1000 MCG Orally Once a day Active 1 tablet Metoprolol Tartrate ND 25561112936 50 MG Orally twice a day Active 1 tablet Zofran ND 84543214348 Orally as needed Active [address] [facility] 67629415169 60 MG/ML Subcutaneous Q 6 MONTHS Active 1 injection Lexapro ND 99077490411 20 MG Orally Once a day Active 1 tab Pyridium ND 95577208133 100 MG Orally QID Active 1 tablet Synthroid ND 47012657407 175 MCG Orally Once a day Active 1 tablet every morning on an empty stomach [place] [facility] 96864589578 10-325 MG Orally every 6 hrs Active 1 tablet as needed Vital Signs Date/Time: Nov 20, 2017 BMI 44.07 Index Weight 256.8 lbs Height 64 in Temperature 97.3 F Cardiac Monitoring Heart Rate 78 /min Blood Pressure Diastolic 80 mm Hg Blood Pressure Systolic 118 mm Hg Results No Known Results Summary Purpose eClinicalWorks Submission
--- OUTSIDE RECORDS SUMMARY | 2019-02-04 12:31 | XMS REPORT ---
Author Amadeo Mcdaniel Organization eClinicalWorks Address Unknown Phone Unavailable Care Team Providers Care Rail Crew Member Name Role Phone Amadeo Curtis CP Unavailable [...] Medications Results No Known Results Summary Purpose [employer] Submission
--- OUTSIDE RECORDS SUMMARY | 2019-02-04 12:31 | XMS REPORT ---
Author Author Amadeo Curtis Organization eClinicalWorks Address Unknown Phone Unavailable Care Team Providers Care Fine Arts Model Name Role Phone Amadeo Curtis CP Unavailable Allergies No Known Allergies Problems Problem Type Condition Code Onset Dates Condition Status Problem Polyarthritis M13.0 Active Problem Left hip [...] Instructions Start Date End Date Status Dosage Pennsaid [facility] [address]-70 2 % Transdermal Twice a day April 22, 2017 Active 2 applications to affected area Results No Known Results Summary Purpose eClinicalWorks Submission
--- OUTSIDE RECORDS SUMMARY | 2019-02-04 12:31 | XMS REPORT ---
Author Author Amadeo Curtis Organization eClinicalWorks Address Unknown Phone Unavailable Care Team Providers Care Structural Steel Erector Name Role Phone Amadeo Curtis CP Unavailable [...] without current pathological fracture M81.0 Active Assessment Left hip pain M25.552 Active Assessment Polyarthritis M13.0 Active Assessment Raynauds phenomenon without gangrene I73.00 Active Assessment Vitamin D deficiency E55.9 Active Assessment Rheumatoid arthritis of multiple sites with negative rheumatoid factor M06.09 Active Assessment Encounter for long-term (current) use of other high-risk medications Z79.899 Active Medications No Known Medications Results No Known Results Summary Purpose eClinicalWorks Submission
--- OUTSIDE RECORDS SUMMARY | 2019-02-04 12:31 | XMS REPORT ---
Author Amadeo Mcdaniel Organization eClinicalWorks Address Unknown Phone Unavailable Care Team Providers Care Regional Liaison Name Role Phone Amadeo Curtis CP Unavailable [...] M81.0 Active Problem Lupus M32.9 Active Medications No Known Medications Results No Known Results Summary Purpose [employer] Submission
--- OUTSIDE RECORDS SUMMARY | 2019-02-04 12:31 | XMS REPORT ---
Author Amadeo Mcdaniel Organization eClinicalWorks Address Unknown Phone Unavailable Care Team Providers Care Munitions Worker Name Role Phone Amadeo Curtis CP Unavailable [...] Instructions Start Date End Date Status Dosage Prolia [facility] 76149827645 60 MG/ML Subcutaneous Q 6 MONTHS Nov 21, 2017 Active 1 injection Results No Known Results Summary Purpose eClinicalWorks Submission
--- OUTSIDE RECORDS SUMMARY | 2019-02-04 12:31 | XMS REPORT ---
Author Author Masoud Ureña Organization eClinicalWorks Address Unknown Phone Unavailable Care Team Providers Care Search Manager Name Role Phone MarloncliveMasoud CP Unavailable Allergies No Known Allergies Problems [...] Instructions Start Date End Date Status Dosage Folic Acid [facility] 83078587369 1 MG Orally Once a day Nov 25, 2017 Active 1 tablet Results No Known Results Summary Purpose eClinicalWorks Submission
--- OUTSIDE RECORDS SUMMARY | 2019-02-04 12:31 | XMS REPORT ---
Author Amadeo Mcdaniel Organization eClinicalWorks Address Unknown Phone Unavailable Care Team Providers Care [employer] Scout Name Role Phone Amadeo Curtis CP Unavailable [...] Start Date End Date Status Dosage Prolia [facility] 69542986105 60 MG/ML Subcutaneous Q 6 MONTHS Active 1 injection Results No Known Results Summary Purpose eClinicalWorks Submission
--- OUTSIDE RECORDS SUMMARY | 2019-02-04 12:31 | XMS REPORT ---
Author Author Tor Wood [facility] eClinicalWorks Address Unknown Phone Unavailable Care Team Providers Care Sample Patternmaker Name Role Phone Tor Wood CP Unavailable Allergies, Adverse Reactions, Alerts Substance [...] E55.9 Active Assessment Lupus M32.9 Active Assessment Encounter for long-term (current) use of other high-risk medications Z79.899 Active Problem Rheumatoid arthritis of multiple sites [...] Instructions Start Date End Date Status Dosage Lexapro [facility] 86429389181 20 MG Orally Once a day Active 1 tab Dexilant [facility] 74863307619 60 MG Orally twice a day Active 1 capsule Benadryl ND 26083697008 25 MG Orally as needed Active 2 tablets Vitamin B-1 ND 37246509824 250 MG Orally Active as directed Prolia ND 48860777628 60 MG/ML Subcutaneous Q 6 MONTHS Active 1 injection Pyridium ND 49394566983 100 MG Orally QID Active 1 tablet Macrobid ND 14811196316 100 MG Orally once a day Active 1 capsule with food Hydroxychloroquine Sulfate ND 66575067562 200 MG Orally twice a day Jul 28, 2017 Active 1 tablet with food or milk Synthroid ND 27669109091 175 MCG Orally Once a day Active 1 tablet every morning on an empty stomach Metoprolol Tartrate ND 95015030702 50 MG Orally twice a day Active 1 tablet Potassium Chloride CR NDC 0 10 MEQ Orally every day Active 2 tablets Vitamin C [facility] 91665841299 500 MG Orally once a day Active as directed [place] [facility] 20144798126 10-325 MG Orally every 6 hrs Active 1 tablet as needed Zofran ND 25469353154 Orally as needed Active 1 tablet Pennsaid ND 31836577502 2 % Transdermal Twice a day April 22, 2017 Active 2 applications to affected area Erythromycin Ethylsuccinate [facility] 06607719673 400 MG Orally four times a day Active 1 tablet Xanax [facility] 78923859812 1 MG Orally once a day Active 1 tablet Vitamin B-12 ND 78554511543 1000 MCG Orally Once a day Active 1 tablet Folic Acid [facility] 74566855012 1 MG Orally Once a day Active 1 tablet Nystatin [facility] 55074888925 273453 UNIT/GM Externally as needed Active 1 application to affected area Citracal + D [facility] 96680029166 315-200 MG-UNIT Orally Twice a day Active 1 tablet with meals Promethazine HCl [facility] 81143532327 25 MG Orally q6hrs prn Active 1 tablet Vitamin D [facility] 26713618573 1000 UNIT Orally Once a day Active 1 tablet PredniSONE ND 84330329115 5MG Orally once a day Active take 1 tablet daily with food or milk Vital Signs Date/Time: December 10, 2017 BMI 43.94 Index Weight 256 lbs Height 64 in Temperature 97.9 F Cardiac Monitoring Heart Rate 80 /min Blood Pressure Diastolic 88 mm Hg Blood Pressure Systolic 110 mm Hg Results No Known Results Summary Purpose eClinicalWorks Submission
--- OUTSIDE RECORDS SUMMARY | 2019-02-04 12:31 | XMS REPORT ---
Author Author Amadeo Curtis [facility] eClinicalWorks Address Unknown Phone Unavailable Care Team Providers Care Field Artillery Cannoneer Name Role Phone Amadeo Curtis CP Unavailable Allergies, Adverse Reactions, Alerts Substance Reaction Event Type Forteo Info Not Available Non Drug Allergy paper tape Info Not Available Non Drug Allergy codiene Info Not Available Non Drug Allergy biaxin Info Not Available Non Drug Allergy penicillin Info Not Available Non Drug Allergy morphine Info Not Available Non Drug Allergy Problems Problem Type Condition Code Onset Dates Condition Status Assessment Rheumatoid arthritis of multiple sites with negative rheumatoid factor M06.09 Active Problem Vitamin D deficiency E55.9 Active Assessment Lupus M32.9 Active Assessment Encounter for long-term (current) use of other high-risk medications Z79.899 Active Assessment Age-related osteoporosis without current pathological [...] Start Date End Date Status Dosage PredniSONE ND 45816057109 5MG Orally once a day Active take 1 tablet daily with food or milk Folic Acid ND 50253863309 1 MG Orally Once a day Active 1 tablet Lexapro ND 39524239161 20 MG Orally Once a day Active 1 tablet [place] ND 65560382715 10-325 MG Orally every 6 hrs Active 1 tablet as needed Vitamin B-1 ND 23847641836 250 MG Orally Active as directed Synthroid ND 66650668549 175 MCG Orally Once a day Active 1 tablet every morning on an empty stomach Promethazine HCl ND 24543060475 25 MG Orally q6hrs prn Active 1 tablet Potassium Chloride CR NDC 0 10 MEQ Orally every day Active 2 tablets Xanax [facility] 41134608956 1 MG Orally once a day Active 1-2 tablets Prolia [facility] 69699411668 60 MG/ML Subcutaneous Q 6 MONTHS Active 1 injection Vitamin B-12 ND 85715549686 1000 MCG Orally Once a day Active 1 tablet Hydroxychloroquine Sulfate [facility] 62281110774 200MG BID Active 1 tablet Benadryl [facility] 61300168707 25 MG Orally as needed Active 2 tablets Metoprolol Tartrate ND 71109680525 50 MG Orally twice a day Active 1 tablet Erythromycin Ethylsuccinate [facility] 67023226637 400 MG Orally four times a day Active 1 tablet Nystatin [facility] 67349112686 663008 UNIT/GM Externally as needed Active 1 application to affected area Dexilant [facility] 31173789225 60 MG Orally twice a day Active 1 capsule Macrobid [facility] 45753231609 100 MG Orally once a day Active 1 capsule with food Zofran [facility] 04923619965 Orally as needed Active 1 tablet Pyridium ND 45308990633 100 MG Orally QID Active 1 tablet Pennsaid [facility] 98699364808 2 % Transdermal Twice a day Active 2 applications to affected area Zolpidem Tartrate ND 27009777703 10 MG Orally at bedtime Active 1 tablet at bedtime as needed Vitamin C [facility] 54330590984 500 MG Orally once a day Active as directed Clobetasol Propionate ND 42690762465 0.05% Active USE 1 APPLICATION ON AFFECTED AREA EXTERNALLY TWICE A DAY Vitamin D [facility] 59961869271 1000 UNIT Orally Once a day Active 1 tablet Citracal + D [facility] 95023327552 315-200 MG-UNIT Orally Twice a day Active 1 tablet with meals Vital Signs Date/Time: March 09, 2018 BMI 44.42 Index Weight 258.8 lbs Height 64 in Temperature 98.8 F Cardiac Monitoring Heart Rate 72 /min Blood Pressure Diastolic 90 mm Hg Blood Pressure Systolic 136 mm Hg Results No Known Results Summary Purpose eClinicalWorks Submission
--- OUTSIDE RECORDS SUMMARY | 2019-02-04 12:31 | XMS REPORT ---
Author Amadeo Mcdaniel Organization eClinicalWorks Address Unknown Phone Unavailable Care Team Providers Care Digital Producer Name Role Phone Amadeo Curtis CP Unavailable [...] Instructions Start Date End Date Status Dosage Hydroxychloroquine Sulfate [facility] 97309516945 200 MG Orally twice a day Jul 28, 2017 Active 1 tablet with food or milk Results No Known Results Summary Purpose eClinicalWorks Submission
--- OUTSIDE RECORDS SUMMARY | 2019-02-04 12:31 | XMS REPORT ---
Author Author Amadeo Curtis Organization eClinicalWorks Address Unknown Phone Unavailable Care Team Providers Care Poultry Hatchery Supervisor Name Role Phone Amadeo Curtis CP Unavailable Allergies No Known Allergies Problems Problem Type Condition Code Onset Dates Condition Status Problem Polyarthritis M13.0 Active Problem Rheumatoid arthritis of multiple sites with negative rheumatoid factor M06.09 Active Problem Left hip pain M25.552 Active Problem Hypothyroidism, unspecified type E03.9 Active Problem Xanax use disorder, mild F13.10 Active Problem Primary insomnia F51.01 Active Problem Neck pain M54.2 Active Problem Raynauds phenomenon without gangrene I73.00 Active Problem Sleep disorder G47.9 Active Problem Anxiety F41.9 Active Problem Vitamin D deficiency E55.9 Active Problem Lupus M32.9 Active Assessment Lupus M32.9 Active Problem Encounter for long-term (current) use of other high-risk medications Z79.899 Active Problem Age-related osteoporosis without current pathological fracture M81.0 Active Medications Medication Code System Code Instructions Start Date End Date Status Dosage Prolia [facility] 24644357867 60 MG/ML Subcutaneous Q 6 MONTHS Active 1 injection Results No Known Results Summary Purpose eClinicalWorks Submission
--- OUTSIDE RECORDS SUMMARY | 2019-02-04 12:31 | XMS REPORT ---
Author Amadeo Mcdaniel Organization eClinicalWorks Address Unknown Phone Unavailable Care Team Providers Care Irrigationist Designer Name Role Phone Amadeo Curtis CP Unavailable [...] Start Date End Date Status Dosage Vitamin D (Ergocalciferol) [facility] [address]-21 83825 UNIT Orally Once a week Jun 09, 2017 Active 1 capsule Results No Known Results Summary Purpose eClinicalWorks Submission
--- OUTSIDE RECORDS SUMMARY | 2019-02-04 12:31 | XMS REPORT ---
Author Author Amadeo Curtis [facility] eClinicalWorks Address Unknown Phone Unavailable Care Team Providers Care Brand Marketing Manager Name Role Phone Amadeo Curtis CP [...] Raynauds phenomenon without gangrene I73.00 Active Assessment Xanax use disorder, mild F13.10 Active Assessment Anxiety F41.9 Active Assessment Sleep disorder G47.9 Active Assessment Age-related osteoporosis without current pathological fracture M81.0 Active Assessment Lupus M32.9 Active Assessment Neck pain M54.2 Active Problem Vitamin D deficiency E55.9 Active Assessment Rheumatoid arthritis of multiple sites with negative rheumatoid factor M06.09 Active Problem Lupus M32.9 Active Medications Medication Code System Code Instructions Start Date End Date Status Dosage Zolpidem Tartrate ND 55809363655 10 MG Orally at bedtime Active 1 tablet at bedtime as needed Dexilant [facility] 97784419670 60 MG Orally twice a day Active 1 capsule Zofran ND 08906451125 Orally as needed Active 1 tablet Erythromycin Ethylsuccinate ND 63964566026 400 MG Orally four times a day Active 1 tablet Vitamin C ND 64317417788 500 MG Orally once a day Active as directed Vitamin D ND 67097647166 1000 UNIT Orally Once a day Active 1 tablet PredniSONE [facility] 89642829575 5MG Orally once a day Active take 1 tablet daily with food or milk Xanax [facility] 14392451635 1 MG Orally once a day Active 1-2 tablets Nystatin [facility] 74988003332 020508 UNIT/GM Externally as needed Active 1 application to affected area Benadryl [facility] 40642024634 25 MG Orally as needed Active 2 tablets Hydroxychloroquine Sulfate [facility] 61395037421 200MG BID Active 1 tablet Vitamin B-1 [facility] 94767974800 250 MG Orally Active as directed Clobetasol Propionate [facility] 94230584625 0.05% Active USE 1 APPLICATION ON AFFECTED AREA EXTERNALLY TWICE A DAY Pennsaid [facility] 01455856234 2 % Transdermal Twice a day Active 2 applications to affected area Macrobid [facility] 34055510618 100 MG Orally once a day Active 1 capsule with food Percocet [facility] 29318568706 10-325 MG Orally every 6 hrs Active 1 tablet as needed Prolia [facility] 45620427129 60 MG/ML Subcutaneous Q 6 MONTHS Active 1 injection Lexapro [facility] 93938547550 20 MG Orally Once a day Active 1 tablet Potassium Chloride CR ND 0 10 MEQ Orally every day Active 2 tablets Vitamin B-12 [facility] 73449273459 1000 MCG Orally Once a day Active 1 tablet Promethazine HCl [facility] 93505725233 25 MG Orally q6hrs prn Active 1 tablet Folic Acid [facility] 07347211369 1 MG Orally Once a day Active 1 tablet Citracal + D [facility] 85758644763 315-200 MG-UNIT Orally Twice a day Active 1 tablet with meals Metoprolol Tartrate [facility] 89710909234 50 MG Orally twice a day Active 1 tablet Synthroid [facility] 73897908348 175 MCG Orally Once a day Active 1 tablet every morning on an empty stomach Pyridium ND 07028068877 100 MG Orally QID Active 1 tablet Vital Signs Date/Time: Jun 12, 2018 BMI 43.08 Index Weight 251 lbs Height 64 in Temperature 98.17 F Cardiac Monitoring Heart Rate 76 /min Blood Pressure Diastolic 66 mm Hg Blood Pressure Systolic 98 mm Hg Results No Known Results Summary Purpose eClinicalWorks Submission
--- OUTSIDE RECORDS SUMMARY | 2019-02-04 12:31 | XMS REPORT ---
Author Author Masoud Ureña Organization eClinicalWorks Address Unknown Phone Unavailable Care Team Providers Care Centrifugal Drier Operator Name Role Phone ParvinsilkeMasoud CP Unavailable Allergies No Known Allergies Problems Problem Type Condition Code Onset Dates Condition Status Problem Vitamin D deficiency E55.9 Active Assessment [...] Date End Date Status Dosage Hydroxychloroquine Sulfate [facility] 2] 23236316765 200 MG Orally twice a day Active take 1 tablet twice a day Results No Known Results Summary Purpose eClinicalWorks Submission
--- OUTSIDE RECORDS SUMMARY | 2019-02-04 12:31 | XMS REPORT ---
Author Author Amadeo Curtis Organization eClinicalWorks Address Unknown Phone Unavailable Care Team Providers Care Shop Foreman Name Role Phone Amadeo Curtis CP Unavailable [...] Start Date End Date Status Dosage Prolia [facility] 2] [address]-58 60 MG/ML Subcutaneous Q 6 MONTHS Active 1 injection Results No Known Results Summary Purpose eClinicalWorks Submission
--- OUTSIDE RECORDS SUMMARY | 2019-02-04 12:31 | XMS REPORT ---
Author Author Tor Wood [facility] eClinicalWorks Address Unknown Phone Unavailable Care Team Providers Care Lip Of Shank Cutter Name Role Phone Tor Wood CP Unavailable [...] G47.9 Active Problem Anxiety F41.9 Active Assessment Age-related osteoporosis without current pathological fracture M81.0 Active Problem Vitamin D deficiency E55.9 Active Problem Lupus M32.9 Active Assessment Lupus M32.9 Active Problem Encounter for long-term (current) use of other high-risk medications Z79.899 Active Problem Age-related osteoporosis without current pathological fracture M81.0 Active Medications Medication Code System Code Instructions Start Date End Date Status Dosage Vitamin B-12 [facility] 48737312331 1000 MCG Orally Once a day Active 1 tablet Vitamin B-1 [facility] 63715958222 250 MG Orally Active as directed Hydroxychloroquine Sulfate [facility] 09124752738 200MG Orally Twice a day Active 1 tablet with food or milk Synthroid [facility] 83719861447 175 MCG Orally Once a day Active 1 tablet every morning on an empty stomach Folic Acid [facility] 65315386770 1 MG Orally Once a day Active 1 tablet Percocet [facility] 82965683947 10-325 MG Orally every 6 hrs Active 1 tablet as needed Escitalopram Oxalate [facility] 93147005921 20MG Active TAKE 1 TABLET ONCE DAILY Metoprolol Tartrate [facility] 86562050023 50 MG Orally twice a day Active 1 tablet Benadryl ND 33317408233 25 MG Orally as needed Active 2 tablets Vitamin D [facility] 86427411159 1000 UNIT Orally Once a day Active 1 tablet Zofran ND 13758483948 Orally as needed Active 1 tablet Nystatin ND 94237361742 116349 UNIT/GM Externally as needed Active 1 application to affected area Zolpidem Tartrate [facility] 82817884974 10 MG Orally at bedtime Active 1 tablet at bedtime as needed Xanax [facility] 68352179907 1 MG Orally once a day Active 1-2 tablets Prolia [facility] 60883568612 60 MG/ML Subcutaneous Q 6 MONTHS Active 1 injection PredniSONE ND 52080182088 5MG Orally once a day Nov 06, 2018 Active 1 tablet with food or milk Dexilant [facility] 36013341397 60 MG Orally twice a day Active 1 capsule Lexapro [facility] 04481674989 20 MG Orally Once a day Active 1 tablet Promethazine HCl [facility] 67312395720 25 MG Orally q6hrs prn Active 1 tablet Citracal + D [facility] 21792455253 315-200 MG-UNIT Orally Twice a day Active 1 tablet with meals Pennsaid [facility] 54325403502 2 % Transdermal Twice a day Active 2 applications to affected area Clobetasol Propionate [facility] 09741637415 0.05% Active USE 1 APPLICATION ON AFFECTED AREA EXTERNALLY TWICE A DAY Keflex [facility] 71864089890 500 MG Orally every 12 hrs Active 1 capsule Potassium Chloride CR NDC 0 10 MEQ Orally every day Active 2 tablets Pyridium [facility] 29016118221 100 MG Orally QID Active 1 tablet Vitamin C [facility] 49892654048 500 MG Orally once a day Active as directed Erythromycin Ethylsuccinate [facility] 15204219621 400 MG Orally four times a day Active 1 tablet Vital Signs Date/Time: December 21, 2018 BMI 42.10 Index Weight 245.3 lbs Height 64 in Temperature 97.8 F Cardiac Monitoring Heart Rate 76 /min Blood Pressure Diastolic 72 mm Hg Blood Pressure Systolic 112 mm Hg Results No Known Results Summary Purpose eClinicalWorks Submission
--- OUTSIDE RECORDS SUMMARY | 2019-02-04 12:32 | XMS REPORT ---
Author Author Amadeo Curtis eClinicalWorks Address Unknown Phone Unavailable Care Team Providers Care Crew Manager Name Role Phone Amadeo Curtis CP Unavailable Encounters Encounter Location Date Refills Amadeo Curtis MD Aug 29, 2014 refill Amadeo Curtis MD April 27, 2015 3m f/u Amadeo Curtis MD January 05, 2015 Unknown Amadeo Curtis MD Oct 21, 2014 DEXA Amadeo Curtis MD Nov 13, 2014 2m f/u Amadeo Curtis MD Oct 03, 2014 3M JUDIT Curtis MD Aug 01, 2014 TAQUERIA uCrtis MD Sep 01, 2014 taqueria Curtis MD Oct 03, 2014 DEXA Amadeo Curtis MD May 10, 2015 MED RECS Amadeo Curtis MD Jun 02, 2014 INJECTION REQ Amadeo Curtis MD Jun 10, 2014 medication question Amadeo Curtis MD Jul 05, 2014 RECLAST Amadeo Curtis MD Jul 13, 2014 3M JUDIT Curtis MD January 24, 2014 3M JUDIT Curtis MD April 25, 2014 MRI Amadeo Curtis MD Apr 29, 2014 DEXScott Curtis MD Jun 02, 2015 Unknown Amadeo Curtis MD May 23, 2015 MRI order Amadeo Curtis MD Aug 02, 2014 Taqueria Curtis MD Aug 01, 2014 LABS Amadeo Curtis MD Aug 31, 2015 4 mo f/u Amadeo Curtis MD Sep 07, 2015 TAQUERIA Curtis MD Sep 12, 2015 DEXA Amadeo Curtis MD Sep 14, 2015 Problems Problem Type Condition ICD-9 Code Onset Dates Condition Status Problem Psoriasis 696.1 Active Problem Polyarthritis, multiple sites 716.59 Active Problem Osteoporosis, postmenopausal 733.01 Active Problem Long-term (current) use of other medications - High Risk V58.69 Active Problem Lupus 710.0 Active Problem Lupus M32.9 Active Problem Encounter for long-term (current) use of other high-risk medications Z79.899 Active Problem Age-related osteoporosis without current pathological fracture M81.0 Active Problem Osteoarthrosis, multiple sites 715.09 Active Problem 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.9 Active Problem Malignant neoplasm of other specified sites of female breast 174.8 Active Problem Nausea with vomiting 787.01 Active Social History Social History Element Qualifiers Date Reported Tobacco Use: . Are you a:: never smoker Sep 07, 2015 Caffeine: no. Sep 07, 2015 Exercise: yes. walking Sep 07, 2015 Alcohol: no. Sep 07, 2015 Summary Purpose eClinicalWorks Submission
--- OUTSIDE RECORDS SUMMARY | 2019-02-04 12:32 | XMS REPORT ---
Author Author Amadeo Curtis eClinicalWorks Address Unknown Phone Unavailable Care Team Providers Care Specification Writer Name Role Phone Amadeo Curtis CP Unavailable Encounters Encounter Location Date MED RECS Amadeo Curtis MD Jun 02, 2014 INJECTION REQ Amadeo Curtis MD Jun 10, 2014 medication question Amadeo Curtis MD Jul 05, 2014 RECLAST Amadeo Curtis MD Jul 13, 2014 3M FU Amadeo Curtis MD January 24, 2014 3M JUDIT Curtis MD April 25, 2014 MRI Amadeo Curtis MD Apr 29, 2014 Refills Amadeo Curtis MD Aug 29, 2014 DEXA Amadeo Curtis MD Jun 02, 2015 Unknown Amadeo Curtis MD May 23, 2015 MRI order Amadeo Curtis MD Aug 02, 2014 Prolia Amadeo Curtis MD Aug 01, 2014 refill Amadeo Curtis MD April 27, 2015 3m f/u Amadeo Curtis MD January 05, 2015 Unknown Amadeo Curtis MD Oct 21, 2014 MARIA ELENAA Amadeo Curtis MD Nov 13, 2014 2m f/u Amadeo Curtis MD Oct 03, 2014 3M JUDIT Curtis MD Aug 01, 2014 RUTH Curtis MD Sep 01, 2014 ruth Curtis MD Oct 03, 2014 DEXA Amadeo Curtis MD May 10, 2015 Problems Problem Type Condition ICD-9 Code Onset Dates Condition Status Problem Lupus 710.0 Active Problem Long-term (current) use of other medications - High Risk V58.69 Active Problem Nausea with vomiting 787.01 Active Problem Osteoarthrosis, multiple sites 715.09 Active Problem Malignant neoplasm of other specified sites of female breast 174.8 Active Problem Osteoporosis, postmenopausal 733.01 Active Problem Psoriasis 696.1 Active Problem 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.9 Active Problem Polyarthritis, multiple sites 716.59 Active Social History Social History Element Qualifiers Date Reported Tobacco Use: . Are you a:: never smoker May 23, 2015 Caffeine: no. May 23, 2015 Exercise: yes. walking May 23, 2015 Alcohol: no. May 23, 2015 Summary Purpose eClinicalWorks Submission
--- OUTSIDE RECORDS SUMMARY | 2019-02-04 12:32 | XMS REPORT ---
Author Author Roberto Dover [facility] eClinicalWorks Address Unknown Phone Unavailable Care Team Providers Care Psychologist Private Practice Name Role Phone Roberto Dover CP Unavailable Allergies, Adverse Reactions, Alerts Substance Reaction Event Type paper tape Info Not Available Non Drug Allergy penicillin Info Not Available Non Drug Allergy morphine Info Not Available Non Drug Allergy codiene Info Not Available Non Drug Allergy biaxin Info Not Available Non Drug Allergy Encounters Encounter Location Date 3M FU Amadeo Curtis MD January 24, 2014 Problems Problem Type Condition ICD-9 Code Onset Dates Condition Status Assessment Long-term (current) use of other medications - High Risk V58.69 Active Problem Long-term (current) use of other medications - High Risk V58.69 Active Assessment Lupus 710.0 Active Problem Osteoarthrosis, multiple sites 715.09 Active Problem 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 Active Problem Nausea with vomiting 787.01 Active Problem Psoriasis 696.1 Active Problem Lupus 710.0 Active Problem Polyarthritis, multiple sites 716.59 Active Problem Osteoporosis, postmenopausal 733.01 Active Medications Medication Code System Code Instructions Start Date End Date Status Dosage Potassium Chloride CR [facility] [address]-99 10 MEQ Orally every day Active 4 tablets Metoprolol Tartrate [facility] [address]-82 50 MG Orally twice a day Active 1 tablet Benadryl [facility] [address]-91 25 MG Orally as needed Active 2 tablets Zipsor [facility] [address]-36 25 MG Orally Four times a day Active 1 capsule Reclast [facility] [address]-99 5mg Intravenous qyr Active as directed PredniSONE [facility] [address]-94 5MG Active TAKE 1 TABLET ONCE DAILY WITH FOOD OR MILK Citracal + D [facility] [address]-00 315-200 MG-UNIT Orally Twice a day Active 1 tablet with meals Nystatin [facility] [address]-97 233104 UNIT/GM Externally as needed Active 1 application to affected area Xanax [facility] [address]-29 1 MG Orally twice a day Active 1 tablet Folic Acid [facility] [address]-25 1MG Active TAKE 1 TABLET TWICE A DAY Promethazine HCl [facility] [address]-56 25 MG Orally q6hrs prn Active 1 tablet Lidoderm [facility] [address]-37 5 % Externally Once a day April 24, 2014 Active 1 patch to intact skin remove after 12 hours Bovey [facility] [address]-24 10-325 MG Orally every 8 hrs January 24, 2014 April 24, 2014 Active 1 tablet as needed Cyanocobalamin [facility] 41211-12723 1000MCG/ML subcutaneous once a week Active inject 1 ml subcutaneously each week Enbrel [facility] [address]-97 50 MG/ML Subcutaneous Every week Active 1 injection Diphenoxylate-Atropine [facility] [address]-33 2.5-0.025 MG Orally Four times a day Active 1 tablet as needed Lexapro [facility] [address]-98 20 MG Orally Once a day Active 1 tab Hydroxychloroquine Sulfate [facility] [address]-95 200MG Active TAKE 1 TABLET TWICE A DAY Methotrexate Sodium [facility] [address]-07 25 MG/ML Injection once a week Active inject 0.6 ml's sub-q each week. Synthroid [facility] [address]-20 137 MCG Orally Once a day Active 1 tablet every morning on an empty stomach Dexilant [facility] [address]-48 40 MG Orally twice a day Active 1 capsule Clobetasol Propionate [facility] [address]-97 0.05 % Externally Twice a day Active 1 application to affected area Social History Social History Element Qualifiers Date Reported Caffeine: no. January 24, 2014 Exercise: yes. walking January 24, 2014 Alcohol: no. January 24, 2014 Vital Signs Date/Time: January 24, 2014 Weight 264 lbs Height 64.5 in Temperature 97.6 F Cardiac Monitoring Heart Rate 72 /min Blood Pressure Diastolic 82 mm Hg Blood Pressure Systolic 128 mm Hg Results C-REACTIVE PROTEIN C-REACTIVE PROTEIN(-<0.80 mg/dL) 0.58 HISTOPLASMA ANTIBODY, ID HISTOPLASMA ANTIBODY, ID(- ) NEGATIVE COMPREHENSIVE METABOLIC PANEL W/EGFR ALBUMIN/GLOBULIN RATIO(-1.0-2.5 (calc)) 1.5 GLOBULIN(-1.9-3.7 g/dL (calc)) 2.6 ALKALINE PHOSPHATASE(-33-130 U/L) 87 BILIRUBIN, TOTAL(-0.2-1.2 mg/dL) 0.6 CHLORIDE(-98-110 mmol/L) 107 ALT(-6-29 U/L) 30 POTASSIUM(-3.5-5.3 mmol/L) 4.4 AST(-10-35 U/L) 24 SODIUM(-135-146 mmol/L) 142 BUN/CREATININE RATIO(-6-22 (calc)) NOT APPLICABLE eGFR (-> OR=60 mL/min/1.73m2) 91 CALCIUM(-8.6-10.4 mg/dL) 9.1 CARBON DIOXIDE(-19-30 mmol/L) 25 ALBUMIN(-3.6-5.1 g/dL) 3.9 PROTEIN, TOTAL(-6.1-8.1 g/dL) 6.5 GLUCOSE(-65-99 mg/dL) 88 UREA NITROGEN (BUN)(-7-25 mg/dL) 18 CREATININE(-0.50-1.05 mg/dL) 0.85 eGFR NON-AFR. [place](-> OR=60 mL/min/1.73m2) 79 QUANTIFERON(R)-TB GOLD TB-NIL(- IU/mL) 0.03 NIL(- IU/mL) 0.06 MITOGEN-NIL(- IU/mL) >10.00 QUANTIFERON(R)-TB GOLD(-NEGATIVE ) NEGATIVE SED RATE BY MODIFIED WESTERGREN SED RATE BY MODIFIED WESTERGREN(-< OR=30 mm/h) 6 COCCIDIOIDES ANTIBODY, ID COCCIDIOIDES ANTIBODY, ID(- ) NEGATIVE CBC (INCLUDES DIFF/PLT) RDW(-11.0-15.0 %) 16.8 MCHC(-32.0-36.0 g/dL) 32.8 MCH(-27.0-33.0 pg) 32.3 MCV(-80.0-100.0 fL) 98.7 HEMATOCRIT(-35.0-45.0 %) 39.1 HEMOGLOBIN(-11.7-15.5 g/dL) 12.8 RED BLOOD CELL COUNT(-3.80-5.10 Million/uL) 3.97 WHITE BLOOD CELL COUNT(-3.8-10.8 Thousand/uL) 6.8 EOSINOPHILS(- %) 3.4 ABSOLUTE BASOPHILS(-0-200 cells/uL) 41 BASOPHILS(- %) 0.6 NEUTROPHILS(- %) 61.7 LYMPHOCYTES(- %) 26.7 MONOCYTES(- %) 7.6 ABSOLUTE NEUTROPHILS(-6113-6281 cells/uL) 4196 ABSOLUTE LYMPHOCYTES(-850-3900 cells/uL) 1816 ABSOLUTE MONOCYTES(-200-950 cells/uL) 517 ABSOLUTE EOSINOPHILS(-15-500 cells/uL) 231 PLATELET COUNT(-140-400 Thousand/uL) 215 HEPATITIS PANEL HEPATITIS B SURFACE ANTIGEN(-NON-REACTIVE ) NON-REACTIVE HEPATITIS B SURFACE ANTIBODY QL(-NON-REACTIVE ) NON-REACTIVE HEPATITIS C ANTIBODY(-NON-REACTIVE ) NON-REACTIVE HEPATITIS B CORE AB TOTAL(-NON-REACTIVE ) NON-REACTIVE SIGNAL TO CUT-OFF(-<1.00 ) 0.17 HEPATITIS A AB, TOTAL(-NON-REACTIVE ) NON-REACTIVE Summary Purpose eClinicalWorks Submission
--- OUTSIDE RECORDS SUMMARY | 2019-02-04 12:32 | XMS REPORT ---
Author Author Amadeo Curtis eClinicalWorks Address Unknown Phone Unavailable Care Team Providers Care Incubator Machine Operator Name Role Phone Amadeo Curtis CP Unavailable [...] DEXA Amadeo Curtis MD Nov 13, 2014 LABS Amadeo Curtis MD Aug 31, 2015 2m f/u Amadeo Curtis MD Oct 03, 2014 4 mo f/u Amadeo Curtis MD Sep 07, 2015 3M JUDIT Curtis MD Aug 01, 2014 PROLIA Amadeo Curtis MD Sep 12, 2015 RUTH Curtis MD Sep 01, 2014 ruth [...]
--- OUTSIDE RECORDS SUMMARY | 2019-02-04 12:32 | XMS REPORT ---
Author Amadeo Mcdaniel [facility] eClinicalWorks Address Unknown Phone Unavailable Care Team Providers Care Stripping Shovel Oiler Name Role Phone Amadeo Curtis CP Unavailable Encounters Encounter Location Date MED RECS Amadeo Curtis MD Jun 02, 2014 INJECTION REQ Amadeo Curtis MD Jun 10, 2014 medication question Amadeo Curtis MD Jul 05, 2014 3M FU Amadeo Curtis MD January 24, 2014 3M FU Amadeo Curtis MD April 25, 2014 MRI Amadeo Curtis MD Apr 29, 2014 Problems Problem Type Condition ICD-9 Code Onset Dates Condition Status Problem Long-term (current) use of other medications - High Risk V58.69 Active Problem Osteoarthrosis, multiple sites 715.09 Active Problem 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 April 25, 2014 Exercise: yes. walking April 25, 2014 Alcohol: no. April 25, 2014 Summary Purpose eClinicalWorks Submission
--- OUTSIDE RECORDS SUMMARY | 2019-02-04 12:32 | XMS REPORT ---
Author Author Tor Wood [facility] eClinicalWorks Address Unknown Phone Unavailable Care Team Providers Care Charging Crane Operator Name Role Phone IsraelTor Unavailable Allergies, Adverse Reactions, Alerts Substance Reaction Event Type paper tape Info Not Available Non Drug Allergy penicillin Info Not Available Non Drug Allergy morphine Info Not Available Non Drug Allergy regalan Info Not Available Non Drug Allergy codiene Info Not Available Non Drug Allergy biaxin Info Not Available Non Drug Allergy Encounters Encounter Location Date Refills Amadeo Curtis MD Aug 29, 2014 refill Amadeo Curtis MD April 27, 2015 3m f/u Amadeo Curtis MD January 05, 2015 Unknown Amadeo Curtis MD Oct 21, 2014 ROD Curtis MD Nov 13, 2014 2m f/u Amadeo Curtis MD Oct 03, 2014 3M JUDIT Curtis MD Aug 01, 2014 TAQUERIA Curtis MD Sep 01, 2014 taqueria Curtis MD Oct 03, 2014 ROD Curtis MD May 10, 2015 MED RECS Amadeo Curtis MD Jun 02, 2014 INJECTION REQ Amadeo Curtis MD Jun 10, 2014 medication question Amadeo Curtis MD Jul 05, 2014 RECLAST Amadeo Curtis MD Jul 13, 2014 3M JUDIT Curtis MD January 24, 2014 3M JUDIT Curtis MD April 25, 2014 MRI Amadeo Curtis MD Apr 29, 2014 DEXA Amadeo Curtis MD Jun 02, 2015 Unknown Amadeo Curtis MD May 23, 2015 MRI order Amadeo Curtis MD Aug 02, 2014 Taqueria Curtis MD Aug 01, 2014 not a candidate for research Amadeo Curtis MD Nov 06, 2015 Medical Necessity Amadeo Curtis MD December 04, 2015 3month Follow UP Amadeo Curtis MD January 03, 2016 LABS Amadeo Curtis MD Aug 31, 2015 4 mo f/u Amadeo Curtis MD Sep 07, 2015 TAQUERIA Curtis MD Sep 12, 2015 DEXA Amadeo Curtis MD Sep 14, 2015 Problems Problem Type Condition ICD-9 Code Onset Dates Condition Status Problem Lupus M32.9 Active Problem Encounter for long-term (current) use of other high-risk medications Z79.899 Active Problem Age-related osteoporosis without current pathological fracture M81.0 Active Assessment Encounter for long-term (current) use of other high-risk medications Z79.899 Active Assessment Malignant neoplasm of other specified sites of female breast 174.8 Active Assessment Lupus M32.9 Active Assessment Age-related osteoporosis without current pathological fracture M81.0 Active Medications Medication Code System Code Instructions Start Date End Date Status Dosage [facility] [address]-30 60 MG/ML Subcutaneous Q 6 MONTHS Active 60MG SQ [place] [facility] [address]-10 10-325 MG Orally every 6 hrs Active 1 tablet as needed Potassium Chloride CR Unknown 0 10 MEQ Orally every day Active [address] [facility] [address]-81 60 MG Orally twice a day Active [address] [facility] [address]-07 100 MG Orally once a day Active 1 capsule with food Metoprolol Tartrate [facility] [address]-65 50 MG Orally twice a day Active [address] [facility] [address]-83 20 MG Orally Once a day Active 1 tab Diclofenac Sodium [facility] [address]-30 75 MG Orally Once a day Active [address] [facility] [address]-33 827268 UNIT/GM Externally as needed Active 1 application to affected area Vitamin B-[address] [facility] [address]-29 1000 MCG Orally Once a day Active 1 tablet Promethazine HCl [facility] [address]-92 25 MG Orally q6hrs prn Active [address] [facility] [address]95 400 MG Orally Active as directed Vitamin B-[address] [facility] [address]-70 250 MG Orally Active as directed Diphenoxylate-Atropine [facility] [address]-97 2.5-0.025 MG Orally Four times a day Active 1 tablet as needed Benadryl [facility] [address]-49 25 MG Orally as needed Active 2 tablets Citracal + D [facility] [address]-09 315-200 MG-UNIT Orally Twice a day Active 1 tablet with meals Vitamin D [facility] [address]-53 1000 UNIT Orally Once a day Active 1 tablet Xanax [facility] [address]-79 1 MG Orally twice a day Active 1 tablet Folic Acid [facility] 67567358800 1MG Active TAKE 1 TABLET TWICE A DAY Zofran [facility] [address]-30 Orally PRN on chemo days Active 1 tablet Hydroxychloroquine Sulfate [facility] 67376514764 200MG Active TAKE 1 TABLET TWICE A DAY Clobetasol Propionate [facility] [address]-55 0.05 % Externally Twice a day Active 1 application to affected area Synthroid [facility] [address]-46 137 MCG Orally Once a day Active 1 tablet every morning on an empty stomach Social History Social History Element Qualifiers Date Reported Tobacco Use: . Are you a:: never smoker January 03, 2016 Caffeine: no. January 03, 2016 Exercise: yes. walking January 03, 2016 Alcohol: no. January 03, 2016 Vital Signs Date/Time: January 03, 2016 Weight 252 lbs Height 64 in Temperature 98.2 F Cardiac Monitoring Heart Rate 77 /min Blood Pressure Diastolic 74 mm Hg Blood Pressure Systolic 114 mm Hg Summary Purpose eClinicalWorks Submission
--- OUTSIDE RECORDS SUMMARY | 2019-02-04 12:32 | XMS REPORT ---
Author Author Tor Wood [facility] [place] eClinicalWorks Address Unknown Phone Unavailable Care Team Providers Care Reheat Furnace Operator Name Role Phone IsraelTor Unavailable Allergies, Adverse Reactions, Alerts Substance Reaction Event Type regalan Info Not Available Non Drug Allergy paper tape Info Not Available Non Drug Allergy penicillin Info Not Available Non Drug Allergy morphine Info Not Available Non Drug Allergy codiene Info Not Available Non Drug Allergy biaxin Info Not Available Non Drug Allergy Encounters Encounter Location Date MED RECS Amadeo Curtis MD Jun 02, 2014 INJECTION REQ Amadeo Curtis MD Jun 10, 2014 medication question Amadeo Curtis MD Jul 05, 2014 RECLAST Amadeo Curtis MD Jul 13, 2014 3M JUDIT Curtis MD January 24, 2014 3M JUDIT Curtis MD April 25, 2014 MRI Amadeo Curtis MD Apr 29, 2014 Refills Amadeo Curtis MD Aug 29, 2014 ROD Curtis MD Jun 02, 2015 Unknown Amadeo Curtis MD May 23, 2015 MRI order Amadeo Curtis MD Aug 02, 2014 Taqueria Curtis MD Aug 01, 2014 refill Amadeo Curtis MD April 27, 2015 3m f/u Amadeo Curtis MD January 05, 2015 Polina Curtis MD Oct 21, 2014 ROD Curtis MD Nov 13, 2014 LABS Amadeo Curtis MD Aug 31, 2015 2m f/u Amadeo Curtis MD Oct 03, 2014 4 mo f/u Amadeo Curtis MD Sep 07, 2015 3M JUDIT Curtis MD Aug 01, 2014 TAQUERIA Curtis MD Sep 01, 2014 taqueria Curtis MD Oct 03, 2014 ROD Curtis MD May 10, 2015 Problems Problem Type Condition ICD-9 Code Onset Dates Condition Status Problem Psoriasis 696.1 Active Problem Polyarthritis, multiple sites 716.59 Active Problem Osteoporosis, postmenopausal 733.01 Active Problem Lupus M32.9 Active Problem Encounter for long-term (current) use of other high-risk medications Z79.899 Active Problem Age-related osteoporosis without current pathological fracture M81.0 Active Problem Osteoarthrosis, multiple sites 715.09 Active Problem 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.9 Active Problem Malignant neoplasm of other specified sites of female breast 174.8 Active Problem Nausea with vomiting 787.01 Active Assessment Encounter for long-term (current) use of other high-risk medications Z79.899 Active Assessment Lupus M32.9 Active Problem Long-term (current) use of other medications - High Risk V58.69 Active Assessment Osteoporosis without pathological fracture M81.0 Active Problem Lupus 710.0 Active Medications Medication Code System Code Instructions Start Date End Date Status Dosage Diclofenac Sodium [facility] [address]-76 75 MG Orally Once a day Active 1 tablet Folic Acid [facility] 19305638661 1MG Active TAKE 1 TABLET TWICE A DAY PredniSONE [facility] 12774620710 5MG Active TAKE 1 TABLET DAILY WITH FOOD OR MILK Hydroxychloroquine Sulfate [facility] 30718178453 200MG Active TAKE 1 TABLET TWICE A DAY Clobetasol Propionate [facility] [address]-32 0.05 % Externally Twice a day Active 1 application to affected area Macrobid [facility] [address]-45 100 MG Orally once a day Active 1 capsule with food Vitamin B-1 [facility] [address]-10 250 MG Orally Active as directed Lexapro [facility] [address]-77 20 MG Orally Once a day Active 1 tab Prolia [facility] [address]-70 60 MG/ML Subcutaneous Q 6 MONTHS Active 60MG SQ Nystatin [facility] [address]-37 631361 UNIT/GM Externally as needed Active 1 application to affected area Benadryl [facility] [address]-24 25 MG Orally as needed Active 2 tablets [place] [facility] [address]-17 10-325 MG Orally every 6 hrs Active 1 tablet as needed Metoprolol Tartrate [facility] [address]-03 50 MG Orally twice a day Active 1 tablet Diphenoxylate-Atropine [facility] [address]-64 2.5-0.025 MG Orally Four times a day Active 1 tablet as needed Synthroid [facility] [address]-34 137 MCG Orally Once a day Active 1 tablet every morning on an empty stomach Xanax [facility] [address]-15 1 MG Orally twice a day Active 1 tablet Vitamin D [facility] [address]-73 1000 UNIT Orally Once a day Active 1 tablet Potassium Chloride CR Unknown 0 10 MEQ Orally every day Active 2 tablets Dexilant [facility] [address]-53 60 MG Orally twice a day Active 1 capsule Vitamin B-12 [facility] [address]-39 1000 MCG Orally Once a day Active 1 tablet Citracal + D [facility] [address]-04 315-200 MG-UNIT Orally Twice a day Active 1 tablet with meals Magnesium [facility] 02366-26140 400 MG Orally Active as directed Zofran [facility] [address]-46 Orally PRN on chemo days Active 1 tablet Promethazine HCl [facility] [address]-17 25 MG Orally q6hrs prn Active 1 tablet Social History Social History Element Qualifiers Date Reported Tobacco Use: . Are you a:: never smoker Sep 07, 2015 Caffeine: no. Sep 07, 2015 Exercise: yes. walking Sep 07, 2015 Alcohol: no. Sep 07, 2015 Vital Signs Date/Time: Sep 07, 2015 Weight 254 lbs Height 64 in Temperature 98.1 F Cardiac Monitoring Heart Rate 80 /min Blood Pressure Diastolic 72 mm Hg Blood Pressure Systolic 112 mm Hg Summary Purpose eClinicalWorks Submission
--- OUTSIDE RECORDS SUMMARY | 2019-02-04 12:32 | XMS REPORT ---
Author Amadeo Mcdaniel eClinicalWorks Address Unknown Phone Unavailable Care Team Providers Care Social Media Editor Name Role Phone Amadeo Curtis CP Unavailable Encounters Encounter Location Date MED RECS Amadeo Curtis MD Jun 02, 2014 INJECTION REQ Amadeo Curtis MD Jun 10, 2014 medication question Amadeo Curtis MD Jul 05, 2014 RECLAST Amadeo Curtis MD Jul 13, 2014 3M FU Amadeo Curtis MD January 24, 2014 TAQUERIA Curtis MD Sep 01, 2014 3M JUDIT Curtis MD April 25, 2014 MRI Amadeo Curtis MD Apr 29, 2014 Refills Amadeo Curtis MD Aug 29, 2014 MRI order Amadeo Curtis MD Aug 02, 2014 Taqueria Curtis MD Aug 01, 2014 Problems Problem Type Condition ICD-9 Code [...] Start Date End Date Status Dosage PredniSONE [facility] [address]-63 5MG Orally Once a day Active TAKE 1 TABLET ONCE DAILY WITH FOOD OR MILK Hydroxychloroquine Sulfate [facility] [address]-23 200MG Orally Twice a day Active TAKE 1 TABLET Folic Acid [facility] [address]-08 1MG Orally Twice a day Active TAKE 1 TABLET Social History Social History Element Qualifiers Date Reported Tobacco Use: . Are you a:: never smoker Aug 01, 2014 Caffeine: no. Aug 01, 2014 Exercise: yes. walking Aug 01, 2014 Alcohol: no. Aug 01, 2014 Summary Purpose eClinicalWorks Submission
--- OUTSIDE RECORDS SUMMARY | 2019-02-04 12:32 | XMS REPORT ---
Author Author Amadeo Curtis eClinicalWorks Address Unknown Phone Unavailable Care Team Providers Care Particleboard Factory Worker Name Role Phone Amadeo Curtis CP [...] Prolia Amadeo Curtis MD Aug 01, 2014 2m f/u Amadeo Curtis MD Oct 03, 2014 RUTH Curtis MD Sep 01, 2014 ruth Curtis MD Oct 03, 2014 Problems Problem Type Condition ICD-9 Code [...] Use: . Are you a:: never smoker Oct 03, 2014 Caffeine: no. Oct 03, 2014 Exercise: yes. walking Oct 03, 2014 Alcohol: no. Oct 03, 2014 Summary Purpose eClinicalWorks Submission
--- OUTSIDE RECORDS SUMMARY | 2019-02-04 12:32 | XMS REPORT ---
Author Amadeo Mcdaniel [facility] eClinicalWorks Address Unknown Phone Unavailable Care Team Providers Care Market Specialist Name Role Phone Amadeo Curtis CP Unavailable [...]
--- OUTSIDE RECORDS SUMMARY | 2019-02-04 12:32 | XMS REPORT ---
Author Author Amadeo Curtis eClinicalWorks Address Unknown Phone Unavailable Care Team Providers Care Instructional Resource Teacher Name Role Phone Amadeo Curtis CP Unavailable [...] 2014 taqueria Curtis MD Oct 03, 2014 MARIA ELENAA Amadeo Curtis MD May 10, 2015 MED [...] Necessity Amadeo Curtis MD December 04, 2015 LABS Amadeo Curtis MD Aug 31, 2015 4 mo f/u Amadeo Curtis MD Sep 07, 2015 PROLBALWINDER Curtis MD Sep 12, 2015 DEXA Amadeo Curtis MD Sep 14, 2015 Problems Problem Type Condition ICD-9 Code Onset Dates Condition Status Problem Lupus M32.9 Active Problem Encounter for long-term (current) use of other high-risk medications Z79.899 Active Problem Age-related osteoporosis without current pathological fracture M81.0 Active Social History Social History Element Qualifiers Date Reported Tobacco Use: . Are you a:: never smoker January 03, 2016 Caffeine: no. January 03, 2016 Exercise: yes. walking January 03, 2016 Alcohol: no. January 03, 2016 Summary Purpose eClinicalWorks Submission
--- OUTSIDE RECORDS SUMMARY | 2019-02-04 12:32 | XMS REPORT ---
Author Amadeo Mcdaniel [facility] eClinicalWorks Address Unknown Phone Unavailable Care Team Providers Care Fitness Instructor Name Role Phone Amadeo Curtis CP Unavailable [...]
--- OUTSIDE RECORDS SUMMARY | 2019-02-04 12:32 | XMS REPORT ---
Author Author Amadeo Curtis eClinicalWorks Address Unknown Phone Unavailable Care Team Providers Care Explosive Ordnance Disposal Technician Name Role Phone Amadeo Curtis CP Unavailable [...] MRI Amadeo Curtis MD Apr 29, 2014 ROD Curtis MD Jun 02, 2015 Polina Curtis MD May 23, 2015 MRI order Amadeo Curtis MD Aug 02, 2014 Taqueria Curtis MD Aug 01, 2014 not a candidate for research Amadeo Curtis MD Nov 06, 2015 LABS Amadeo Curtis MD Aug 31, [...]
--- OUTSIDE RECORDS SUMMARY | 2019-02-04 12:32 | XMS REPORT ---
Author Author Amadeo Curtis eClinicalWorks Address Unknown Phone Unavailable Care Team Providers Care Laboratory Animal Caretaker Name Role Phone Amadeo Curtis CP Unavailable [...] ELENAA Amadeo Curtis MD Nov 13, 2014 LABS Amadeo Curtis MD Aug 31, 2015 2m f/u Amadeo Curtis MD Oct 03, 2014 3M FU Amadeo Curtis MD Aug 01, 2014 RUTH Curtis MD Sep 01, 2014 ruth Curtis MD Oct 03, 2014 DEXA Amadeo Curtis MD May 10, 2015 Problems Problem Type Condition ICD-9 Code Onset Dates Condition Status Problem Long-term (current) use of other medications - High Risk V58.69 Active Problem Psoriasis 696.1 Active Problem Lupus 710.0 Active Problem Malignant neoplasm of other specified sites of female breast 174.8 Active Problem Nausea with vomiting 787.01 Active Problem Age-related osteoporosis without current pathological fracture M81.0 Active Problem Polyarthritis, multiple sites 716.59 Active Problem Osteoporosis, postmenopausal 733.01 Active Problem Osteoarthrosis, multiple sites 715.09 Active Problem 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 Are you a:: never smoker Sep 07, 2015 Caffeine: no. Sep 07, 2015 Exercise: yes. walking Sep 07, 2015 Alcohol: no. Sep 07, 2015 Summary Purpose eClinicalWorks Submission
--- OUTSIDE RECORDS SUMMARY | 2019-02-04 12:32 | XMS REPORT ---
Author Author Amadeo Curtis [facility] eClinicalWorks Address Unknown Phone Unavailable Care Team Providers Care Insurance Sales Executive Name Role Phone Amadeo Curtis CP Unavailable [...] MRI Amadeo Curtis MD Apr 29, 2014 MRI order Amadeo Curtis MD Aug 02, 2014 Prolia Amadeo Curtis MD Aug 01, 2014 Problems Problem Type Condition ICD-9 Code Onset Dates Condition Status Problem Long-term (current) use of other medications - High Risk V58.69 Active Assessment Pain in joint, ankle and foot 719.47 Active Problem Osteoarthrosis, multiple sites 715.09 Active [...]
--- OUTSIDE RECORDS SUMMARY | 2019-02-04 12:32 | XMS REPORT ---
Author Author Amadeo Curtis [facility] eClinicalWorks Address Unknown Phone Unavailable Care Team Providers Care Geospatial Image Analyst Name Role Phone Amadeo Curtis Unavailable Encounters Encounter Location Date MED RECS [...] History Element Qualifiers Date Reported Caffeine: no. Jul 09, 2014 Exercise: yes. walking Jul 09, 2014 Alcohol: no. Jul 09, 2014 Summary Purpose eClinicalWorks Submission
--- OUTSIDE RECORDS SUMMARY | 2019-02-04 12:32 | XMS REPORT ---
Author Amadeo Mcdaniel [facility] eClinicalWorks Address Unknown Phone Unavailable Care Team Providers Care Dressing Machine Operator Name Role Phone Amadeo Curtis [...]
--- OUTSIDE RECORDS SUMMARY | 2019-02-04 12:32 | XMS REPORT ---
Author Amadeo Mcdaniel [facility] eClinicalWorks Address Unknown Phone Unavailable Care Team Providers Care Staffing Assistant Name Role Phone Amadeo Curtis CP [...]
--- OUTSIDE RECORDS SUMMARY | 2019-02-04 12:32 | XMS REPORT ---
Author Author Amadeo Curtis eClinicalWorks Address Unknown Phone Unavailable Care Team Providers Care Entry Level Truck Driver Name Role Phone Amadeo Curtis CP Unavailable [...]
--- OUTSIDE RECORDS SUMMARY | 2019-02-04 12:32 | XMS REPORT ---
Author Author Paige Ignacio [facility] eClinicalWorks Address Unknown Phone Unavailable Care Team Providers Care Tube Cleaning Operator Name Role Phone Paige Ignacio Unavailable Allergies, Adverse Reactions, Alerts Substance Reaction Event Type paper tape Info Not Available Non Drug Allergy penicillin Info Not Available Non Drug Allergy morphine Info Not Available Non Drug Allergy codiene Info Not Available Non Drug Allergy biaxin Info Not Available Non Drug Allergy Encounters Encounter Location Date [facility] Amadeo Curtis MD January 24, 2014 [facility] Amadeo Curtis MD April 25, 2014 Problems Problem Type Condition ICD-9 Code Onset Dates Condition Status Assessment Long-term (current) use of other medications - High Risk V58.69 Active Problem Long-term (current) use of other medications - High Risk V58.69 Active Assessment Lupus 710.0 Active Assessment Unspecified disorder of thyroid 246.9 Active Assessment Other malaise and fatigue 780.79 Active Problem Osteoarthrosis, multiple sites 715.09 Active Problem 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.9 Active Problem Nausea with vomiting 787.01 Active Problem Psoriasis 696.1 Active Problem Lupus 710.0 Active Problem Polyarthritis, multiple sites 716.59 Active Problem Osteoporosis, postmenopausal 733.01 Active Medications Medication Code System Code Instructions Start Date End Date Status Dosage Lexapro [facility] [address]-18 20 MG Orally Once a day Active 1 tab Benadryl [facility] [address]-04 25 MG Orally as needed Active 2 tablets Methotrexate Sodium [facility] [address]-14 25 MG/ML Injection once a week Active inject 0.6 ml's sub-q each week. Citracal + D [facility] [address]-14 315-200 MG-UNIT Orally Twice a day Active 1 tablet with meals Nystatin [facility] [address]-21 404728 UNIT/GM Externally as needed Active 1 application to affected area Clobetasol Propionate [facility] [address]-49 0.05 % Externally Twice a day Active 1 application to affected area Xanax [facility] [address]-19 1 MG Orally twice a day Active 1 tablet Folic Acid [facility] [address]-32 1MG Active TAKE 1 TABLET TWICE A DAY PredniSONE [facility] [address]-13 5MG Active TAKE 1 TABLET ONCE DAILY WITH FOOD OR MILK Reclast [facility] [address]-24 5mg Intravenous qyr Active as directed Cyanocobalamin [facility] 71752-83262 1000MCG/ML subcutaneous once a week Active inject 1 ml subcutaneously each week Potassium Chloride CR [facility] [address]-99 10 MEQ Orally every day Active 4 tablets Metoprolol Tartrate [facility] [address]-32 50 MG Orally twice a day Active 1 tablet Promethazine HCl [facility] [address]-95 25 MG Orally q6hrs prn Active 1 tablet Hydroxychloroquine Sulfate [facility] [address]-58 200MG Active TAKE 1 TABLET TWICE A DAY Synthroid [facility] [address]-69 137 MCG Orally Once a day Active 1 tablet every morning on an empty stomach Diphenoxylate-Atropine [facility] [address]-87 2.5-0.025 MG Orally Four times a day Active 1 tablet as needed Dexilant [facility] [address]-39 40 MG Orally twice a day Active 1 capsule Social History Social History Element Qualifiers Date Reported Caffeine: no. April 25, 2014 Exercise: yes. walking April 25, 2014 Alcohol: no. April 25, 2014 Vital Signs Date/Time: April 25, 2014 Weight 270 lbs Height 64 in Temperature 98.5 F Cardiac Monitoring Heart Rate 80 /min Blood Pressure Diastolic 74 mm Hg Blood Pressure Systolic 130 mm Hg Results CBC (INCLUDES DIFF/PLT) ABSOLUTE LYMPHOCYTES(-850-3900 cells/uL) 1958 ABSOLUTE NEUTROPHILS(-7296-8902 cells/uL) 4568 BASOPHILS(- %) 0.6 HEMOGLOBIN(-11.7-15.5 g/dL) 11.7 EOSINOPHILS(- %) 5.8 HEMATOCRIT(-35.0-45.0 %) 35.3 MONOCYTES(- %) 6.6 MCV(-80.0-100.0 fL) 96.4 LYMPHOCYTES(- %) 26.1 MCH(-27.0-33.0 pg) 31.8 NEUTROPHILS(- %) 60.9 MCHC(-32.0-36.0 g/dL) 33.0 ABSOLUTE BASOPHILS(-0-200 cells/uL) 45 RDW(-11.0-15.0 %) 15.0 WHITE BLOOD CELL COUNT(-3.8-10.8 Thousand/uL) 7.5 PLATELET COUNT(-140-400 Thousand/uL) 265 ABSOLUTE EOSINOPHILS(-15-500 cells/uL) 435 RED BLOOD CELL COUNT(-3.80-5.10 Million/uL) 3.67 ABSOLUTE MONOCYTES(-200-950 cells/uL) 495 SED RATE BY MODIFIED WESTERGREN SED RATE BY MODIFIED WESTERGREN(-< OR=30 mm/h) 11 COMPREHENSIVE METABOLIC PANEL W/EGFR ALBUMIN/GLOBULIN RATIO(-1.0-2.5 (calc)) 1.3 GLOBULIN(-1.9-3.7 g/dL (calc)) 3.0 ALKALINE PHOSPHATASE(-33-130 U/L) 107 BILIRUBIN, TOTAL(-0.2-1.2 mg/dL) 0.4 CHLORIDE(-98-110 mmol/L) 104 ALT(-6-29 U/L) 28 POTASSIUM(-3.5-5.3 mmol/L) 4.5 AST(-10-35 U/L) 25 SODIUM(-135-146 mmol/L) 137 BUN/CREATININE RATIO(-6-22 (calc)) NOT APPLICABLE eGFR (-> OR=60 mL/min/1.73m2) 76 CALCIUM(-8.6-10.4 mg/dL) 9.2 CARBON DIOXIDE(-19-30 mmol/L) 24 ALBUMIN(-3.6-5.1 g/dL) 3.9 PROTEIN, TOTAL(-6.1-8.1 g/dL) 6.9 GLUCOSE(-65-99 mg/dL) 77 UREA NITROGEN (BUN)(-7-25 mg/dL) 20 CREATININE(-0.50-1.05 mg/dL) 0.99 eGFR NON-AFR. HUNGARIAN(-> OR=60 mL/min/1.73m2) 66 C-REACTIVE PROTEIN C-REACTIVE PROTEIN(-<0.80 mg/dL) 0.47 TSH, 3RD GENERATION TSH(- mIU/L) 4.05 Summary Purpose eClinicalWorks Submission
--- OUTSIDE RECORDS SUMMARY | 2019-02-04 12:32 | XMS REPORT ---
Author Author Tor Wood [facility] eClinicalWorks Address Unknown Phone Unavailable Care Team Providers Care Batch Unit Treater Name Role Phone Tor Wood Unavailable Allergies, Adverse Reactions, Alerts Substance Reaction [...] 2014 Taqueria Curtis MD Aug 01, 2014 2m f/u Amadeo Curtis MD Oct 03, 2014 TAQUERIA Curtis MD Sep 01, 2014 taqueria Curtis MD Oct 03, 2014 Problems Problem Type Condition ICD-9 Code Onset Dates Condition Status Assessment Long-term (current) use of other medications - High Risk V58.69 Active Problem Long-term (current) use of other medications - High Risk V58.69 Active Assessment Lupus 710.0 Active Assessment Unspecified vitamin D deficiency 268.9 Active Problem Osteoarthrosis, multiple sites 715.09 Active Problem 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.9 Active Problem Nausea with vomiting 787.01 Active Problem Psoriasis 696.1 Active Problem Lupus 710.0 Active Problem Polyarthritis, multiple sites 716.59 Active Problem Osteoporosis, postmenopausal 733.01 Active Medications Medication Code System Code Instructions Start Date End Date Status Dosage Xanax [facility] [address]-25 1 MG Orally twice a day Active 1 tablet Synthroid [facility] [address]-17 137 MCG Orally Once a day Active 1 tablet every morning on an empty stomach Promethazine HCl [facility] [address]-72 25 MG Orally q6hrs prn Active 1 tablet Vitamin D (Ergocalciferol) [facility] [address]-55 01337 UNIT Orally once a week fro 1 2weeks Active 1 capsule Clobetasol Propionate [facility] [address]-34 0.05 % Externally Twice a day Active 1 application to affected area Diphenoxylate-Atropine [facility] [address]-90 2.5-0.025 MG Orally Four times a day Active 1 tablet as needed [place] [facility] [address]-17 10-325 MG Orally every 6 hrs Active 1 tablet as needed Citracal + D [facility] [address]-32 315-200 MG-UNIT Orally Twice a day Active 1 tablet with meals Potassium Chloride CR Unknown 0 10 MEQ Orally every day Active 3 tablets Zofran [facility] [address]-26 Orally PRN on chemo days Active 1 tablet Folic Acid [facility] [address]-38 1MG Orally Twice a day Active TAKE 1 TABLET Hydroxychloroquine Sulfate [facility] [address]-05 200MG Orally Twice a day Active TAKE 1 TABLET Metoprolol Tartrate [facility] [address]-55 50 MG Orally twice a day Active 1 tablet Benadryl [facility] [address]-59 25 MG Orally as needed Active 2 tablets Macrobid [facility] [address]-48 100 MG Orally once a day Active 1 capsule with food Nystatin [facility] [address]-99 453107 UNIT/GM Externally as needed Active 1 application to affected area Lexapro [facility] [address]-26 20 MG Orally Once a day Active 1 tab Dexilant [facility] [address]-87 40 MG Orally twice a day Active 1 capsule PredniSONE [facility] [address]-21 5MG Orally Once a day Active TAKE 1 TABLET ONCE DAILY WITH FOOD OR MILK Social History Social History Element Qualifiers Date Reported Tobacco Use: . Are you a:: never smoker Oct 03, 2014 Caffeine: no. Oct 03, 2014 Exercise: yes. walking Oct 03, 2014 Alcohol: no. Oct 03, 2014 Vital Signs Date/Time: Oct 03, 2014 Weight 274 lbs Height 64 in Temperature 98.3 F Cardiac Monitoring Heart Rate 76 /min Blood Pressure Diastolic 76 mm Hg Blood Pressure Systolic 124 mm Hg Summary Purpose eClinicalWorks Submission
--- OUTSIDE RECORDS SUMMARY | 2019-02-04 12:33 | XMS REPORT ---
Author Author Paige Ignacio [facility] eClinicalWorks Address Unknown Phone Unavailable Care Team Providers Care Dental Tech Name Role Phone Paige Ignacio Unavailable Allergies, Adverse Reactions, Alerts Substance Reaction Event Type paper tape Info Not Available Non Drug Allergy penicillin Info Not Available Non Drug Allergy morphine Info Not Available Non Drug Allergy codiene Info Not Available Non Drug Allergy biaxin Info Not Available Non Drug Allergy Problems Problem Type Condition Code Onset Dates Condition Status Assessment Encounter for long-term (current) use of other high-risk medications Z79.899 Active Problem Left hip pain M25.552 Active Problem Age-related osteoporosis without current pathological fracture M81.0 Active Problem Polyarthritis M13.0 Active Problem Vitamin D deficiency E55.9 Active Assessment Lupus M32.9 Active Problem Lupus M32.9 Active Problem Encounter for long-term (current) use of other high-risk medications Z79.899 Active Medications Medication Code System Code Instructions Start Date End Date Status Dosage Vitamin D [facility] [address]-60 1000 UNIT Orally Once a day Active 1 tablet Vitamin B-1 [facility] [address]-62 250 MG Orally Active as directed Clobetasol Propionate [facility] [address]-55 0.05 % Externally Twice a day Jun 14, 2017 Active 1 application to affected area Folic Acid [facility] 20211049256 1MG Orally Once a day Jun 14, 2017 Active 1 tablet Synthroid [facility] [address]-81 137 MCG Orally Once a day Active 1 tablet every morning on an empty stomach Zofran [facility] [address]-14 Orally as needed Active 1 tablet Naoma [facility] [address]-11 10-325 MG Orally every 6 hrs Active 1 tablet as needed Citracal + D [facility] [address]-97 315-200 MG-UNIT Orally Twice a day Active 1 tablet with meals Prolia [facility] [address]-88 60 MG/ML Subcutaneous Q 6 MONTHS Active 1 injection Vitamin B-12 [facility] [address]-15 1000 MCG Orally Once a day Active 1 tablet Dexilant [facility] [address]-49 60 MG Orally twice a day Active 1 capsule Promethazine HCl [facility] [address]-01 25 MG Orally q6hrs prn Active 1 tablet Potassium Chloride CR [facility] 0 10 MEQ Orally every day Active 2 tablets Nystatin [facility] [address]-72 223210 UNIT/GM Externally as needed Active 1 application to affected area Magnesium [facility] 88011-37205 400 MG Orally Active as directed Vitamin C [facility] 72239-25860 500 MG Orally once a day Active as directed Erythromycin Ethylsuccinate [facility] [address]-41 400 MG Orally four times a day Active 1 tablet PredniSONE [facility] 53285024525 5MG Orally once a day Jun 14, 2017 Active take 1 tablet daily with food or milk Hydroxychloroquine Sulfate [facility] 09162293863 200 MG Orally twice a day Jun 14, 2017 Active take 1 tablet twice a day Xanax [facility] [address]-39 1 MG Orally once a day Active 1 tablet Metoprolol Tartrate [facility] [address]-44 50 MG Orally twice a day Active 1 tablet Lexapro [facility] [address]-54 20 MG Orally Once a day Active 1 tab Diphenoxylate-Atropine [facility] [address]-85 2.5-0.025 MG Orally as needed Active 1 tablet as needed Benadryl [facility] [address]-11 25 MG Orally as needed Active 2 tablets Macrobid [facility] [address]-40 100 MG Orally once a day Active 1 capsule with food Vital Signs Date/Time: December 16, 2016 BMI 42.91 Index Weight 250 lbs Height 64 in Temperature 98.6 F Cardiac Monitoring Heart Rate 80 /min Blood Pressure Diastolic 68 mm Hg Blood Pressure Systolic 110 mm Hg Results No Known Results Summary Purpose eClinicalWorks Submission
--- OUTSIDE RECORDS SUMMARY | 2019-02-04 12:33 | XMS REPORT ---
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
--- OUTSIDE RECORDS SUMMARY | 2019-02-04 12:33 | XMS REPORT ---
Author Author Amadeo Curtis Organization eClinicalWorks Address Unknown Phone Unavailable Care Team Providers Care Pension Adviser Name Role Phone Amadeo Curtis CP Unavailable Allergies No Known Allergies Problems Problem Type Condition Code Onset Dates Condition Status Problem Left hip pain M25.552 Active Problem Age-related osteoporosis without current pathological fracture M81.0 Active Problem Polyarthritis M13.0 Active Problem Vitamin D deficiency E55.9 Active Problem Lupus M32.9 Active Problem Encounter for long-term (current) use of other high-risk medications Z79.899 Active Medications Medication Code System Code Instructions Start Date End Date Status Dosage Pennsaid [facility] [address]-82 2 % Transdermal Twice a day December 31, 2016 Apr 30, 2017 Active 2 applications to affected area Results No Known Results Summary Purpose eClinicalWorks Submission
--- OUTSIDE RECORDS SUMMARY | 2019-02-04 12:33 | XMS REPORT ---
Author Author Paige Ignacio [facility] eClinicalWorks Address Unknown Phone Unavailable Care Team Providers Care Volunteer Specialist Name Role Phone Paige Ignacio CP Unavailable Allergies, Adverse Reactions, Alerts Substance Reaction Event Type paper tape Info Not Available Non Drug Allergy penicillin Info Not Available Non Drug Allergy morphine Info Not Available Non Drug Allergy codiene Info Not Available Non Drug Allergy biaxin Info Not Available Non Drug Allergy Encounters Encounter Location Date Refills Amadeo Curtis MD Aug 29, 2014 Unknown Amadeo Curtis MD March 14, 2016 Rx/Lab results Amadeo Curtis MD March 04, 2016 Prolia 03/14 Amadeo Curtis MD February 01, 2016 refill Amadeo Curtis MD April 27, 2015 3m f/u Amadeo Curtis MD January 05, 2015 6 WK FU Amadeo Curtis MD April 23, 2016 Unknown Amadeo Curtis MD Oct 21, 2014 2 mth follow up Amadeo Curtis MD Jun 24, 2016 ROD Curtis MD Nov 13, 2014 2m f/u Amadeo Curtis MD Oct 03, 2014 3M FU Amadeo Curtis MD Aug 01, 2014 TAQUERIA Curtis [...] UP Amadeo Curtis MD January 03, 2016 labs Amadeo Curtis MD February 27, 2016 LABS Amadeo Curtis MD Aug 31, 2015 4 mo f/u Amadeo Curtis MD Sep 07, 2015 TAQUERIA Curtis MD Sep 12, 2015 DEXA Amadeo Curtis MD Sep 14, 2015 Problems Problem Type Condition ICD-9 Code Onset Dates Condition Status Assessment Encounter for long-term (current) use of other high-risk medications Z79.899 Active Assessment Age-related osteoporosis without current pathological fracture M81.0 Active Problem Left hip pain M25.552 Active Problem Age-related osteoporosis without current pathological fracture M81.0 Active Problem Polyarthritis M13.0 Active Problem Vitamin D deficiency E55.9 Active Assessment Lupus M32.9 Active Problem Lupus M32.9 Active Problem Encounter for long-term (current) use of other high-risk medications Z79.899 Active Medications Medication Code System Code Instructions Start Date End Date Status Dosage Macrobid [facility] [address]-93 100 MG Orally once a day Active 1 capsule with food Promethazine HCl [facility] [address]-52 25 MG Orally q6hrs prn Active 1 tablet Escalon [facility] [address]-86 10-325 MG Orally every 6 hrs Active 1 tablet as needed Potassium Chloride CR Unknown 0 10 MEQ Orally every day Active 2 tablets Vitamin D [facility] [address]-38 1000 UNIT Orally Once a day Active 1 tablet Hydromorphone HCl [facility] [address]-54 4 MG Orally every 6 hrs Active 1 tablet as needed Folic Acid [facility] 83568384700 1MG Active TAKE 1 TABLET TWICE A DAY Zofran [facility] [address]-46 Orally PRN on chemo days Active 1 tablet Nystatin [facility] [address]-78 518105 UNIT/GM Externally as needed Active 1 application to affected area Benadryl [facility] [address]-73 25 MG Orally as needed Active 2 tablets Metoprolol Tartrate [facility] [address]-34 50 MG Orally twice a day Active 1 tablet Vitamin B-12 [facility] [address]-46 1000 MCG Orally Once a day Active 1 tablet Vitamin D (Ergocalciferol) [facility] [address]-09 74564 UNIT Orally Once a week March 04, 2016 Active 1 capsule Vitamin C [facility] 8[address]-40274 500 MG Orally Active as directed Dexilant [facility] [address]-12 60 MG Orally twice a day Active 1 capsule Clobetasol Propionate [facility] [address]-81 0.05 % Externally Twice a day Active 1 application to affected area PredniSONE [facility] 81733764619 5MG Active TAKE 1 TABLET DAILY WITH FOOD OR MILK Citracal + D [facility] [address]-10 315-200 MG-UNIT Orally Twice a day Active 1 tablet with meals Diclofenac Sodium [facility] [address]-26 50 mg Orally Once a day Jun 24, 2016 Inactive 1 tablet Hydroxychloroquine Sulfate [facility] 04269781973 200MG Active TAKE 1 TABLET TWICE A DAY Diphenoxylate-Atropine [facility] [address]-41 2.5-0.025 MG Orally Four times a day Active 1 tablet as needed Lexapro [facility] [address]-22 20 MG Orally Once a day Active 1 tab Prolia [facility] [address]-62 60 MG/ML Subcutaneous Q 6 MONTHS Active 1 injection Magnesium [facility] 67403-27260 400 MG Orally Active as directed Synthroid [facility] [address]-61 137 MCG Orally Once a day Active 1 tablet every morning on an empty stomach Xanax [facility] [address]-14 1 MG Orally twice a day Active 1 tablet Vitamin B-1 [facility] [address]-49 250 MG Orally Active as directed Social History Social History Element Qualifiers Date Reported Tobacco Use: . Are you a:: never smoker Jun 24, 2016 Caffeine: no. Jun 24, 2016 Exercise: yes. walking Jun 24, 2016 Alcohol: no. Jun 24, 2016 Vital Signs Date/Time: Jun 24, 2016 Weight 243 lbs Height 64 in Temperature 98.4 F Cardiac Monitoring Heart Rate 76 /min Blood Pressure Diastolic 76 mm Hg Blood Pressure Systolic 124 mm Hg Summary Purpose eClinicalWorks Submission
--- OUTSIDE RECORDS SUMMARY | 2019-02-04 12:33 | XMS REPORT ---
Author Author Alfonzo Spaulding Organization eClinicalWorks Address Unknown Phone Unavailable Care Team Providers Care Roofing Superintendent Name Role Phone Alfonzo Spaulding CP Unavailable Allergies No Known Allergies Problems Problem Type Condition Code Onset Dates Condition Status Problem Lumbosacral spondylosis without myelopathy 721.3 Active Problem Pain in joint, lower leg 719.46 Active Problem Long-term (current) use of other medications - High Risk V58.69 Active Problem Osteoarthritis of left hip M16.12 Active Assessment Spondylosis without myelopathy or radiculopathy, lumbosacral region M47.817 Active Problem Carpal tunnel syndrome, right upper limb G56.01 Active Assessment 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 Active Assessment Lumbar spondylosis M47.816 Active Problem Lumbar spondylosis M47.816 Active Problem Spondylosis without myelopathy or radiculopathy, lumbosacral region M47.817 Active Problem 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 Active Problem Pain in left knee M25.562 Active Problem Other [facility] (current) drug therapy Z79.899 Active Assessment Carpal tunnel syndrome, right upper limb G56.01 Active Assessment 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 Active Assessment 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
--- OUTSIDE RECORDS SUMMARY | 2019-02-04 12:33 | XMS REPORT ---
Author Author Paige Ignacio [facility] eClinicalWorks Address Unknown Phone Unavailable Care Team Providers Care Digging Machine Operator Name Role Phone Paige Ignacio CP Unavailable [...] 3M JUDIT Curtis MD Aug 01, 2014 PROLBALWINDER Curtis MD Sep 01, 2014 prolia Amadeo Curtis MD Oct 03, 2014 DEXA Amadeo [...] ICD-9 Code Onset Dates Condition Status Assessment Age-related [...] Date End Date Status Dosage Folic Acid [facility] 27843091491 1MG Active TAKE 1 TABLET TWICE A DAY Nystatin [facility] [address]-60 222854 UNIT/GM Externally as needed May 23, 2016 Active 1 application to affected area Cipro [facility] [address]-08 500 MG Orally Twice a day Active 1 tablet Vitamin B-1 [facility] [address]-19 250 MG Orally Active as directed Metoprolol Tartrate [facility] [address]-97 50 MG Orally twice a day Active 1 tablet Lexapro [facility] [address]-21 20 MG Orally Once a day Active 1 tab Prolia [facility] [address]-76 60 MG/ML Subcutaneous Q 6 MONTHS Active 1 injection Promethazine HCl [facility] [address]-59 25 MG Orally q6hrs prn Active 1 tablet Vitamin D [facility] [address]-81 1000 UNIT Orally Once a day Active 1 tablet Vitamin B-12 [facility] [address]-27 1000 MCG Orally Once a day Active 1 tablet Potassium Chloride CR Unknown 0 10 MEQ Orally every day Active 2 tablets Synthroid [facility] [address]-92 137 MCG Orally Once a day Active 1 tablet every morning on an empty stomach Clobetasol Propionate [facility] [address]-54 0.05 % Externally Twice a day Active 1 application to affected area [employer] [facility] [address]-63 10-325 MG Orally every 6 hrs Active 1 tablet as needed Vitamin D (Ergocalciferol) [facility] [address]-54 11612 UNIT Orally Once a week March 04, 2016 Aug 21, 2016 Active 1 capsule Hydroxychloroquine Sulfate [facility] 15030238362 200MG Active TAKE 1 TABLET TWICE A DAY Magnesium [facility] 32344-38760 400 MG Orally Active as directed PredniSONE [facility] 70564230175 5MG Active TAKE 1 TABLET DAILY WITH FOOD OR MILK Diclofenac Sodium [facility] [address]-05 50 MG Orally Once a day Active 1 tablet Citracal + D [facility] [address]-45 315-200 MG-UNIT Orally Twice a day Active 1 tablet with meals Benadryl [facility] [address]-25 25 MG Orally as needed Active 2 tablets Diphenoxylate-Atropine [facility] [address]-20 2.5-0.025 MG Orally Four times a day May 23, 2016 Active 1 tablet as needed Xanax [facility] [address]-15 1 MG Orally twice a day Active 1 tablet Dexilant [facility] [address]-42 60 MG Orally twice a day Active 1 capsule Social History Social History Element Qualifiers Date Reported Tobacco Use: . Are you a:: never smoker April 23, 2016 Caffeine: no. April 23, 2016 Exercise: yes. walking April 23, 2016 Alcohol: no. April 23, 2016 Vital Signs Date/Time: April 23, 2016 Weight 243 lbs Height 64 in Temperature 97.8 F Cardiac Monitoring Heart Rate 78 /min Blood Pressure Diastolic 78 mm Hg Blood Pressure Systolic 128 mm Hg Summary Purpose eClinicalWorks Submission
--- OUTSIDE RECORDS SUMMARY | 2019-02-04 12:33 | XMS REPORT ---
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
--- OUTSIDE RECORDS SUMMARY | 2019-02-04 12:33 | XMS REPORT ---
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
--- OUTSIDE RECORDS SUMMARY | 2019-02-04 12:33 | XMS REPORT ---
Author Author Alfonzo Spaulding [facility] eClinicalWorks Address Unknown Phone Unavailable Care Team Providers Care Radiology Technologist Name Role Phone Alfonzo Spaulding Unavailable Allergies, Adverse Reactions, Alerts Substance Reaction Event Type morphine rash Non Drug Allergy paper tape rash Non Drug Allergy codine rash Non Drug Allergy penacillin rash Non Drug Allergy biaxine rash Non Drug Allergy Problems Problem Type Condition Code Onset Dates Condition Status Assessment Spondylosis without myelopathy or radiculopathy, lumbosacral region M47.817 Active Assessment Rheumatoid arthritis involving ankle, unspecified laterality, unspecified rheumatoid factor presence M06.9 Active Assessment 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 Active Problem Osteoarthritis of left hip M16.12 Active Problem Carpal tunnel syndrome, right upper limb G56.01 Active Problem Lumbar spondylosis M47.816 Active Problem Spondylosis without myelopathy or radiculopathy, lumbosacral region M47.817 Active Problem 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 Active Problem Pain in left knee M25.562 Active Problem Other jail (current) drug therapy Z79.899 Active Assessment Pain in left hip M25.552 Active Assessment Pain in left knee M25.562 Active Assessment Other terminal press operator (current) drug therapy Z79.899 Active Assessment Carpal tunnel syndrome, right upper limb G56.01 Active Medications Medication Code System Code Instructions Start Date End Date Status Dosage Erythromycin Ethylsuccinate [facility] [place] [address]-53 400 MG Orally Active as directed Citracal Plus [facility] [place] [address]-72 Active not defined Nitrofurantoin Monohyd Macro [facility] [place] [address]-33 Active not defined BL Magnesium [facility] [place] [address]-59 Active not defined Hydroxychloroquine Sulfate [facility] [place] [address]-42 Active not defined Folic Acid [facility] [place] 79843572927 1MG Active TAKE 1 TABLET TWICE A DAY Colestipol HCl [facility] [place] [address]-91 1 GM Orally Once a day Active 2 tablets Vital Signs Date/Time: Jul 02, 2017 BMI 47.30 Index Weight 275.6 lbs Height 64 in Temperature 98.0 F Cardiac Monitoring Heart Rate 68 /min Blood Pressure Diastolic 64 mm Hg Blood Pressure Systolic 124 mm Hg Results No Known Results Summary Purpose eClinicalWorks Submission
--- OUTSIDE RECORDS SUMMARY | 2019-02-04 12:33 | XMS REPORT ---
Author Author Paige Ignacio [facility] eClinicalWorks Address Unknown Phone Unavailable Care Team Providers Care Siebel Administrator Name Role Phone Paige Ignacio CP Unavailable [...] 03/14 Amadeo Curtis MD February 01, 2016 2 mth follow up Amadeo Curtis MD Sep 16, 2016 refill Amadeo Curtis MD April 27, 2015 3m f/u Amadeo Curtis MD January 05, 2015 6 WK FU Amadeo Curtis MD April 23, 2016 Unknown Amadeo Curtis MD Oct 21, 2014 2 mth follow up Amadeo Curtis MD Jun 24, 2016 DEXA Amadeo Curtis MD Nov 13, 2014 [...] Amadeo Curtis MD February 27, 2016 LABS Amaedo Curtis MD Aug 31, 2015 4 mo [...] Start Date End Date Status Dosage Vitamin B-1 [facility] [address]-42 250 MG Orally Active as directed Vitamin B-12 [facility] [address]-45 1000 MCG Orally Once a day Active 1 tablet Benadryl [facility] [address]-08 25 MG Orally as needed Active 2 tablets Diphenoxylate-Atropine [facility] [address]-81 2.5-0.025 MG Orally Four times a day Active 1 tablet as needed Folic Acid [facility] 79048197091 1MG BID Active 1 tablet Macrobid [facility] [address]-22 100 MG Orally once a day Active 1 capsule with food Zofran [facility] [address]-01 Orally PRN on chemo days Active 1 tablet Metoprolol Tartrate [facility] [address]-05 50 MG Orally twice a day Active 1 tablet Lexapro [facility] [address]-20 20 MG Orally Once a day Active 1 tab Vitamin D (Ergocalciferol) [facility] [address]-62 21302 UNIT Orally Once a week March 04, 2016 Active 1 capsule Nystatin [facility] [address]-15 172326 UNIT/GM Externally as needed Active 1 application to affected area [place] [facility] [address]-55 10-325 MG Orally every 6 hrs Active 1 tablet as needed Dexilant [facility] [address]-37 60 MG Orally twice a day Active 1 capsule Clobetasol Propionate [facility] [address]-11 0.05 % Externally Twice a day Active 1 application to affected area Magnesium [facility] 49474-09547 400 MG Orally Active as directed Citracal + D [facility] [address]-08 315-200 MG-UNIT Orally Twice a day Active 1 tablet with meals Promethazine HCl [facility] [address]-12 25 MG Orally q6hrs prn Active 1 tablet Synthroid [facility] [address]-15 137 MCG Orally Once a day Active 1 tablet every morning on an empty stomach Xanax [facility] [address]-87 1 MG Orally twice a day Active 1 tablet Vitamin C [facility] 47933-34748 500 MG Orally Active as directed PredniSONE [facility] 69159835226 5MG Once a day Active 1 tablet Erythromycin Ethylsuccinate [facility] [address]-28 400 MG Orally QID Active as directed Prolia [facility] [address]-72 60 MG/ML Subcutaneous Q 6 MONTHS Active 1 injection Hydroxychloroquine Sulfate [facility] 16463278114 200MG BID Active 1 tablet Potassium Chloride CR Unknown 0 10 MEQ Orally every day Active 2 tablets Social History Social History Element Qualifiers Date Reported Tobacco Use: . Are you a:: never smoker Sep 16, 2016 Caffeine: no. Sep 16, 2016 Exercise: yes. walking Sep 16, 2016 Alcohol: no. Sep 16, 2016 Vital Signs Date/Time: Sep 16, 2016 Weight 250 lbs Height 64 in Temperature 97.6 F Cardiac Monitoring Heart Rate 72 /min Blood Pressure Diastolic 80 mm Hg Blood Pressure Systolic 122 mm Hg Immunizations Vaccine Administration Date Prolia Sep 16, 2016 Summary Purpose eClinicalWorks Submission
--- OUTSIDE RECORDS SUMMARY | 2019-02-04 12:33 | XMS REPORT ---
Author Author Alfonzo Spaulding [facility] eClinicalWorks Address Unknown Phone Unavailable Care Team Providers Care Track And Field Coach Name Role Phone Alfonzo Spaulding CP Unavailable Allergies, Adverse Reactions, Alerts Substance Reaction Event Type biaxine rash Non Drug Allergy morphine rash Non Drug Allergy paper tape rash Non Drug Allergy codine rash Non Drug Allergy penacillin rash Non Drug Allergy Problems Problem Type [...] in left knee M25.562 Active Problem Other intermodal owner operator truck driver (current) drug therapy Z79.899 Active Assessment Pain in left hip M25.552 Active Assessment Other intermodal owner operator truck driver (current) drug therapy Z79.899 Active Assessment Spondylosis without myelopathy or radiculopathy, lumbosacral region M47.817 Active Assessment 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 Active Assessment Pain in left knee M25.562 Active Problem Carpal tunnel syndrome 354.0 Active Assessment Carpal tunnel syndrome, right upper limb G56.01 Active Problem 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 Active Medications Medication Code System Code Instructions Start Date End Date Status Dosage Citracal Plus [facility] [address]-90 Active not defined Colestipol HCl [facility] [address]-11 1 GM Orally Once a day Active 2 tablets Erythromycin Ethylsuccinate [facility] [address]-41 400 MG Orally Active as directed BL Magnesium [facility] [address]-21 Active not defined Hydroxychloroquine Sulfate [facility] [address]-57 Active not defined Nitrofurantoin Monohyd Macro [facility] [address]-11 Active not defined Folic Acid [facility] 24433632631 1MG Active TAKE 1 TABLET TWICE A DAY Vital Signs Date/Time: May 09, 2017 BMI 45.67 Index Weight 266.1 lbs Height 64 in Temperature 97.4 F Cardiac Monitoring Heart Rate 72 /min Blood Pressure Diastolic 72 mm Hg Blood Pressure Systolic 128 mm Hg Results No Known Results Summary Purpose eClinicalWorks Submission
--- OUTSIDE RECORDS SUMMARY | 2019-02-04 12:33 | XMS REPORT ---
Author Author Amadeo Curtis eClinicalWorks Address Unknown Phone Unavailable Care Team Providers Care Door Worker Name Role Phone Amadeo Curtis CP [...] ICD-9 Code Onset Dates Condition Status Assessment Vitamin D deficiency E55.9 Active Assessment Lupus M32.9 Active Assessment Encounter for long-term (current) use of other high-risk medications Z79.899 Active Assessment Left hip pain M25.552 Active Problem Left hip pain M25.552 Active Problem Age-related osteoporosis without current pathological fracture M81.0 Active Problem Polyarthritis M13.0 Active Problem Vitamin D deficiency E55.9 Active Assessment Age-related osteoporosis without current pathological fracture M81.0 Active Problem Lupus M32.9 Active Problem Encounter for long-term (current) use of other high-risk medications Z79.899 Active Medications Medication Code System Code Instructions Start Date End Date Status Dosage Vitamin B-1 [facility] [address]-76 250 MG Orally Active as directed Magnesium [facility] 62903-85531 400 MG Orally Active as directed Vitamin D (Ergocalciferol) [facility] [address]-32 17968 UNIT Orally Once a week March 04, 2016 Jul 02, 2016 Active 1 capsule Prolia [facility] [address]-11 60 MG/ML Subcutaneous Q 6 MONTHS Active 1 injection Potassium Chloride CR Unknown 0 10 MEQ Orally every day Active 2 tablets Nystatin [facility] [address]-65 322312 UNIT/GM Externally as needed Active 1 application to affected area Benadryl [facility] [address]-55 25 MG Orally as needed Active 2 tablets Lexapro [facility] [address]-27 20 MG Orally Once a day Active 1 tab Folic Acid [facility] 48672693441 1MG Active TAKE 1 TABLET TWICE A DAY Citracal + D [facility] [address]-53 315-200 MG-UNIT Orally Twice a day Active 1 tablet with meals Metoprolol Tartrate [facility] [address]-06 50 MG Orally twice a day Active 1 tablet [place] [facility] [address]-12 10-325 MG Orally every 6 hrs Active 1 tablet as needed Diphenoxylate-Atropine [facility] [address]-95 2.5-0.025 MG Orally Four times a day Active 1 tablet as needed Vitamin B-12 [facility] [address]-61 1000 MCG Orally Once a day Active 1 tablet Clobetasol Propionate [facility] [address]-83 0.05 % Externally Twice a day Active 1 application to affected area Dexilant [facility] [address]-23 60 MG Orally twice a day Active 1 capsule Vitamin D [facility] [address]-80 1000 UNIT Orally Once a day Active 1 tablet Diclofenac Sodium [facility] [address]-88 75 MG Orally Once a day Active 1 tablet Synthroid [facility] [address]-07 137 MCG Orally Once a day Active 1 tablet every morning on an empty stomach Xanax [facility] [address]-25 1 MG Orally twice a day Active 1 tablet Zofran [facility] [address]-51 Orally PRN on chemo days Active 1 tablet Hydroxychloroquine Sulfate [facility] 09480362477 200MG Active TAKE 1 TABLET TWICE A DAY Macrobid [facility] [address]-22 100 MG Orally once a day Active 1 capsule with food Promethazine HCl [facility] [address]-50 25 MG Orally q6hrs prn Active 1 tablet Social History Social History Element Qualifiers Date Reported Tobacco Use: . Are you a:: never smoker March 14, 2016 Caffeine: no. March 14, 2016 Exercise: yes. walking March 14, 2016 Alcohol: no. March 14, 2016 Vital Signs Date/Time: March 14, 2016 Weight 254 lbs Height 64 in Temperature 97.7 F Cardiac Monitoring Heart Rate 80 /min Blood Pressure Diastolic 76 mm Hg Blood Pressure Systolic 132 mm Hg Immunizations Vaccine Administration Date Prolia March 14, 2016 Summary Purpose eClinicalWorks Submission
--- OUTSIDE RECORDS SUMMARY | 2019-02-04 12:33 | XMS REPORT ---
Author Author Amadeo Curtis eClinicalWorks Address Unknown Phone Unavailable Care Team Providers Care Elephant Keeper Name Role Phone Amadeo Curtis CP Unavailable Encounters Encounter Location Date Refills Amadeo Curtis MD Aug 29, 2014 Prolia 03/14 Amadeo Curtis MD February 01, 2016 refill Amadeo Curtis MD April 27, 2015 3m f/u Amadeo Curtis MD January 05, 2015 Unknown Amadeo Curtis MD Oct 21, 2014 DEXA Amadeo Curtis MD Nov 13, 2014 2m f/u Amadeo Curtis MD Oct 03, 2014 3M FU Amadeo Curtis MD Aug 01, 2014 PROLBALWINDER Curtis MD Sep 01, 2014 taqueria Curtis MD Oct 03, 2014 MARIA ELENAA Amadeo Curtis MD May 10, 2015 MED RECS Amadeo Curtis MD Jun 02, 2014 INJECTION REQ Amadeo Curtis MD Jun 10, 2014 medication question Amadeo Curtis MD Jul 05, 2014 RECLAST Amadeo Curtis MD Jul 13, 2014 3M JUDIT Curtis MD January 24, 2014 3M FU Amadeo Curtis MD April 25, 2014 MRI Amadeo Curtis MD Apr 29, 2014 DEXA Amadeo Curtis MD Jun 02, 2015 Unknown Amadeo Crutis MD May 23, 2015 MRI order Amadeo [...] 2015 TAQUERIA Curtis MD Sep 12, 2015 MARIA ELENAA Amadeo Curtis MD Sep 14, 2015 Problems Problem Type Condition ICD-9 Code Onset Dates Condition Status Problem Lupus M32.9 Active Problem Encounter for long-term (current) use of other high-risk medications Z79.899 Active Problem Age-related osteoporosis without current pathological fracture M81.0 Active Assessment Encounter for long-term (current) use of other high-risk medications Z79.899 Active Assessment Vitamin D deficiency E55.9 Active Problem Vitamin D deficiency E55.9 Active Assessment Lupus M32.9 Active Social History Social History Element Qualifiers Date Reported Tobacco Use: . Are you a:: never smoker January 03, 2016 Caffeine: no. January 03, 2016 Exercise: yes. walking January 03, 2016 Alcohol: no. January 03, 2016 Summary Purpose eClinicalWorks Submission
--- OUTSIDE RECORDS SUMMARY | 2019-02-04 12:33 | XMS REPORT ---
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.899 Active [...] Date End Date Status Dosage Folic Acid [facility] 88268300744 1MG Active TAKE 1 TABLET TWICE A DAY Erythromycin Ethylsuccinate [facility] [address]-91 400 MG Orally Active as directed Nitrofurantoin Monohyd Macro [facility] [address]-37 Active not defined Hydroxychloroquine Sulfate [facility] [address]-18 Active not defined Citracal Plus [facility] [address]-00 Active not defined [place] [facility] [address]-46 10-325 MG Orally QID March 28, 2017 Active 1 tablet as needed Colestipol HCl [facility] [address]-82 1 GM Orally Once a day Active 2 tablets BL Magnesium [facility] [address]-27 Active not defined Vital Signs Date/Time: February 26, 2017 BMI 44.33 Index Weight 258.3 lbs Height 64 in Temperature 97.7 F Cardiac Monitoring Heart Rate 60 /min Blood Pressure Diastolic 72 mm Hg Blood Pressure Systolic 122 mm Hg Results No Known Results Summary Purpose eClinicalWorks Submission
--- OUTSIDE RECORDS SUMMARY | 2019-02-04 12:33 | XMS REPORT ---
Author Author Alfonzo Spaulding Organization eClinicalWorks Address Unknown Phone Unavailable Care Team Providers Care Manager Truck Name Role Phone Alfonzo Spaulding CP Unavailable Allergies No Known Allergies Problems Problem Type Condition Code Onset Dates Condition Status Assessment Spondylosis without myelopathy or radiculopathy, lumbosacral region M47.817 Active Assessment Lumbar spondylosis M47.816 Active Problem Osteoarthritis of left hip M16.12 Active Problem Carpal tunnel syndrome, right upper limb G56.01 Active Problem Lumbar spondylosis M47.816 Active Problem Spondylosis without myelopathy or radiculopathy, lumbosacral region M47.817 Active Problem 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 Active Problem Pain in left knee M25.562 Active Problem Other alf (current) drug therapy Z79.899 Active Medications Medication Code System Code Instructions Start Date End Date Status Dosage BL Magnesium [facility] [address]-17 Active not defined Folic Acid [facility] 10104421839 1MG Active TAKE 1 TABLET TWICE A DAY Nitrofurantoin Monohyd Macro [facility] [address]-50 Active not defined Erythromycin Ethylsuccinate [facility] [address]-20 400 MG Orally Active as directed Colestipol HCl [facility] [address]-40 1 GM Orally Once a day Active 2 tablets Citracal Plus [facility] [address]-34 Active not defined Hydroxychloroquine Sulfate [facility] [address]-59 Active not defined Results No Known Results Summary Purpose eClinicalWorks Submission
--- OUTSIDE RECORDS SUMMARY | 2019-02-04 12:33 | XMS REPORT ---
Author Author Alfonzo Spaulding Organization eClinicalWorks Address Unknown Phone Unavailable Care Team Providers Care Stroboroma Operator Name Role Phone Alfonzo Spaulding CP [...] in left knee M25.562 Active Problem Other shelter (current) drug therapy Z79.899 Active Medications No Known Medications Results No Known Results Summary Purpose eClinicalWorks Submission
--- OUTSIDE RECORDS SUMMARY | 2019-02-04 12:33 | XMS REPORT ---
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
--- OUTSIDE RECORDS SUMMARY | 2019-02-04 12:33 | XMS REPORT ---
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 Active Problem Spondylosis without myelopathy or radiculopathy, lumbosacral region M47.817 Active Problem Pain in left knee M25.562 Active Problem Carpal tunnel syndrome, right upper limb G56.01 Active Medications Medication Code System Code Instructions Start Date End Date Status Dosage Colestipol HCl ND 18831040435 1 GM Orally Once a day Active 2 tablets Hydroxychloroquine Sulfate ND 00173931911 Active not defined Citracal Plus ND 26726636716 Active not defined Erythromycin Ethylsuccinate ND 65977827381 400 MG Orally Active as directed Folic Acid ND 27909394796 1MG Active TAKE 1 TABLET TWICE A DAY Nitrofurantoin Monohyd Macro ND 36706023987 Active not defined BL Magnesium ND 47887612308 Active not defined Results No Known Results Summary Purpose eClinicalWorks Submission
--- OUTSIDE RECORDS SUMMARY | 2019-02-04 12:33 | XMS REPORT ---
Author Author Amadeo Curtis eClinicalWorks Address Unknown Phone Unavailable Care Team Providers Care Lead Machinist Name Role Phone Amadeo Curtis CP Unavailable [...] f/u Amadeo Curtis MD Sep 07, 2015 PROLIA Amadeo Curtis MD Sep 12, 2015 DEXA Amadeo [...] Instructions Start Date End Date Status Dosage Prolbalwinder [facility] [address]-47 60 MG/ML Subcutaneous Q 6 MONTHS Active 1 injection Social History Social History Element Qualifiers Date Reported Tobacco Use: . Are you a:: never smoker January 03, 2016 Caffeine: no. January 03, 2016 Exercise: yes. walking January 03, 2016 Alcohol: no. January 03, 2016 Summary Purpose eClinicalWorks Submission
--- OUTSIDE RECORDS SUMMARY | 2019-02-04 12:33 | XMS REPORT ---
Author Author Amadeo Curtis eClinicalWorks Address Unknown Phone Unavailable Care Team Providers Care Card Doffer Name Role Phone mAadeo Curtis CP Unavailable Encounters Encounter Location Date Refills Amadeo Curtis MD Aug 29, 2014 Rx/Lab results Amadeo Curtis MD March 04, [...] Active Problem Vitamin D deficiency E55.9 Active Medications Medication Code System Code Instructions Start Date End Date Status Dosage Vitamin D (Ergocalciferol) [facility] [address]-59 50214 UNIT Orally Once a week March 04, 2016 Jul 02, 2016 Active 1 capsule Social History Social History Element Qualifiers Date Reported Tobacco Use: . Are you a:: never smoker January 03, 2016 Caffeine: no. January 03, 2016 Exercise: yes. walking January 03, 2016 Alcohol: no. January 03, 2016 Summary Purpose eClinicalWorks Submission
--- OUTSIDE RECORDS SUMMARY | 2019-02-04 12:34 | XMS REPORT ---
Author Author Alfonzo Spaulding Organization eClinicalWorks Address Unknown Phone Unavailable Care Team Providers Care Tobacco Weigher Name Role Phone Alfonzo Spaulding CP Unavailable Allergies No Known Allergies Problems Problem Type Condition Code Onset Dates Condition Status Problem Carpal tunnel syndrome, right upper limb G56.01 Active Problem Other direct support staff (current) drug therapy Z79.899 Active Problem Pain [...]
--- OUTSIDE RECORDS SUMMARY | 2019-02-04 12:34 | XMS REPORT ---
Author Author [facility] Address Unknown Phone Unavailable Care Team Providers Care Engineer Operations And Maintenance Name Role Phone DR ANNITA DEWITT Unavailable Unavailable Payers Payer Name Policy Type Policy Number Effective Date Expiration Date Problems This patient has no known problems. Allergies, Adverse Reactions, Alerts Allergy Name Allergy Type Status Severity Reaction(s) Onset Date Inactive Date Treating Clinician Comments PAPER TAPE DA Active SV 2015-08-21 00:00:00 adhesive DA Active SV 2014-05-23 00:00:00 metoclopramide DA Active SV 2014-05-23 00:00:00 metoclopramide HCl DA Active SV 2013-06-21 00:00:00 morphine DA Active SV 2013-06-18 00:00:00 Penicillins DA Active WI 2010-09-03 00:00:00 codeine DA Active WI 2010-09-03 00:00:00 adhesive tape DA Active WI 2010-09-03 00:00:00 clarithromycin DA Active U 2010-09-03 00:00:00 Medications This patient has no known medications. Encounters Start Date/Time End Date/Time Encounter Type Admission Type Attending [facility] Care Facility Care Department Encounter ID 2018-02-19 10:52:00 2018-02-19 12:40:00 Outpatient [facility] [id number] Results Test Description Test Time Test Comments Text Results Atomic Results Result Comments HEPATITIS C BY PCR 2018-12-25 15:13:00 HEPATITIS C RNA PCR GOPI (test code=HCVRNAPCRQ) HCV Not Detected IU/mL () TEST INFORMATION (test code=HCVRNAPCRQI) () The quantitative range of this assay is 15 IU/mL to 100million IU/mL.Performed At: [facility] [address] [id number] Sanjai MD Ph:[phone] AB HEPATITIS [id number] 18:20:00* Test Item Value Reference Range Comments AB HEPATITIS C (test code=HCVAB) REACTIVE INDEX NON REACT.
--- OUTSIDE RECORDS SUMMARY | 2019-02-04 12:34 | XMS REPORT ---
Author Author Alfonzo Spaulding Organization eClinicalWorks Address Unknown Phone Unavailable Care Team Providers Care Cocoa Mill Operator Name Role Phone Alfonzo Spaulding CP Unavailable Allergies No Known Allergies Problems Problem Type Condition Code Onset Dates Condition Status Problem Carpal tunnel syndrome, right upper limb G56.01 Active Problem Other terminal clerk (current) drug therapy Z79.899 Active Problem Pain [...]
--- OUTSIDE RECORDS SUMMARY | 2019-02-04 12:34 | XMS REPORT ---
Author Author Alfonzo Spaulding [facility] [place] eClinicalWorks Address Unknown Phone Unavailable Care Team Providers Care Data Programmer Name Role Phone Alfonzo Spaulding CP Unavailable Allergies, Adverse Reactions, Alerts Substance Reaction Event Type Reglan dysphagia Drug Allergy codine rash Non Drug Allergy penacillin rash Non Drug Allergy biaxine rash Non Drug Allergy morphine rash Non Drug Allergy paper tape rash Non Drug Allergy Problems Problem Type Condition Code Onset Dates Condition Status Problem Carpal tunnel syndrome, right upper limb G56.01 Active Problem Other long term care pharmacist (current) drug therapy Z79.899 Active Problem Pain in left knee M25.562 Active Assessment Spondylosis without myelopathy or radiculopathy, [...] Osteoarthritis of left hip M16.12 Active Medications Medication Code System Code Instructions Start Date End Date Status Dosage Hydroxychloroquine Sulfate [facility] 81615293027 Active not defined Erythromycin Ethylsuccinate [facility] 93675495294 400 MG Orally Active as directed Colestipol HCl ND 06558605334 1 GM Orally Two in the morning and One at night Active 3 Tablets BL Magnesium ND 44903786526 Active not defined [place] [facility] 60889162914 10-325 MG Orally every 6 hrs Active 1 tablet as needed Folic Acid ND 58914589729 1MG Active TAKE 1 TABLET TWICE A DAY Citracal Plus ND 42748209940 Active not defined Forteo ND 57994188257 Active not defined Nitrofurantoin Monohyd Macro ND 64982541924 Active not defined Results No Known Results Summary Purpose eClinicalWorks Submission
--- OUTSIDE RECORDS SUMMARY | 2019-02-04 12:34 | XMS REPORT ---
Author Author Alfonzo Spaulding [facility] eClinicalWorks Address Unknown Phone Unavailable Care Team Providers Care Speck Dyer Name Role Phone Alfonzo Spaulding Unavailable Allergies, Adverse Reactions, Alerts Substance Reaction Event Type morphine rash Non Drug Allergy paper tape rash Non Drug Allergy codine rash Non Drug Allergy penacillin rash Non Drug Allergy biaxine rash Non Drug Allergy Encounters Encounter Location Date meds refill Amadeo Curtis MD Oct 31, 2016 Problems Problem Type Condition ICD-9 Code Onset Dates Condition Status Problem Lumbosacral [...] Other intermediate (current) drug therapy Z79.899 Active Assessment Pain in left hip M25.552 Active Assessment Other emt intermediate (current) drug therapy Z79.899 Active Assessment Spondylosis [...] Date End Date Status Dosage Citracal Plus MEDISPAN [address]-15 Active Unknown Custom Lift Chair Unknown 0 Active as directed Hydroxychloroquine Sulfate MEDISPAN [address]-78 Active Unknown [place] MEDISPAN [address]-79 10-325 MG Orally TID Active 1 tablet as needed BL Magnesium [facility] [address]-12 Active Unknown Folic Acid [facility] [id number] 1MG Active TAKE 1 TABLET TWICE A DAY Nitrofurantoin Monohyd Macro [facility] [address]-22 Active Unknown Social History Social History Element Qualifiers Date Reported Diet: no. Oct 31, 2016 Tobacco Use: . Are you a:: never smoker Oct 31, 2016 Pets: none. cats: dogs: Oct 31, 2016 Marital Status: single. Oct 31, 2016 Caffeine: no. Oct 31, 2016 Exercise: no. Oct 31, 2016 Alcohol: no. Oct 31, 2016 Occup. exposure: none. Oct 31, 2016 Occupation: unemployed. Oct 31, 2016 Vital Signs Date/Time: Oct 31, 2016 Weight 250.4 lbs Height 64 in Temperature 97.4 F Blood Pressure Diastolic 72 mm Hg Blood Pressure Systolic 128 mm Hg Summary Purpose eClinicalWorks Submission
[2019-02-04 18:05] VITALS: BP 111/89
--- NOTE | 2019-02-05 00:06 | Operative Report ---
DATE OF PROCEDURE: 02/04/2019 SURGEON: Kashif Coello MD PROCEDURE: EGD with esophageal dilatation and biopsies and colonoscopy with polypectomy. INDICATIONS FOR EGD: Dysphagia, heartburn, nausea, and vomiting. INDICATIONS FOR COLONOSCOPY: Surveillance colonoscopy, personal history of colon polyps. MEDICATIONS: The patient was done under MAC, please see anesthesiologist's note. PROCEDURE IN DETAIL: With the patient in left lateral decubitus position, a flexible fiberoptic Olympus gastroscope was introduced into the esophagus under direct visualization without any difficulty. There was some patchy erythema noted in distal esophagus. A minute nodule was noted at the GE junction, that was biopsied. The esophagus was then dilated to size 50-Tajik [place]. The scope was then advanced with ease into the stomach. Mucosa overlying the antrum and the body revealed some patchy intense erythema and moderate edema and biopsies were obtained and sent to stain for H. pylori. There were some postoperative changes noted. The patient apparently has had a gastric sleeve in the past. The pylorus was of normal contour and shape, it was intubated with ease and the scope was advanced all the way to the second portion of the duodenum. Biopsies were obtained from the proximal second portion and the duodenal bulb to rule out sprue. The scope was then withdrawn back into the stomach and retroflexed and some postoperative changes were noted, but the cardia appeared to be within normal limits. The scope was then straightened out, it was subsequently withdrawn. The patient tolerated the procedure well. IMPRESSION: 1. Mild distal esophagitis. 2. Esophagus dilated to size 50-Tajik [place]. 3. Minute nodule at the GE junction, biopsied. 4. Gastritis, biopsied. Biopsies sent to stain for Helicobacter pylori. 5. Status post gastric sleeve. 6. Rule out sprue. PLAN: Follow up histology. Increase Dexilant to 60 mg one p.o. before meals b.i.d. The patient was then turned around. After adequate lubrication of the anal canal, a flexible fiberoptic Olympus colonoscope was inserted into the rectum with ease and advanced all the way to the cecum. One polyp was hot biopsied from the cecum and the site was hemoclipped. The ascending colon appeared to be within normal limits. Two polyps were hot biopsied and one polyp was snared from the transverse colon. Three polyps were hot biopsied from the descending colon and one polyp was hot biopsied from the rectum. The scope was then retroflexed into the distal rectum. The area around the dentate line appeared to be within normal limits. The scope was then straightened out, it was subsequently withdrawn. The patient tolerated the procedure well. IMPRESSION: 1. Cecal polyp, hot biopsied, site hemoclipped. 2. Transverse colon polyps x3, two hot biopsied and one snared. 3. Descending colon polyps x3, hot biopsied. 4. Rectal polyp, hot biopsied. PLAN: Follow up histology. Initiate high-fiber, low-fat diet. Initiate high-fiber supplement. Start VSL #3 one p.o. daily. The patient might benefit from a followup colonoscopy in 3 years. A total of 8 polyps were removed. Kashif Coello MD [employer] [employer]/[facility]L /[id number] cc: Anthony Menjivar MD
== END | disposition home or self-care (01) ==
LOC: OR 12:20
PROVIDERS: ATTEND Internal Medicine Gastroenterology
DX: K21.0 Gastro-esophageal reflux disease with esophagitis (principal); D12.0 Benign neoplasm of cecum; D12.3 Benign neoplasm of transverse colon; D12.4 Benign neoplasm of descending colon; K62.1 Rectal polyp; K29.50 Unspecified chronic gastritis without bleeding; K31.84 Gastroparesis; K59.00 Constipation, unspecified; K22.70 Barrett's esophagus without dysplasia; Z98.84 Bariatric surgery status; Z90.49 Acquired absence of other specified parts of digestive tract; M32.9 Systemic lupus erythematosus, unspecified; B19.20 Unspecified viral hepatitis C without hepatic coma; I10 Essential (primary) hypertension; M06.9 Rheumatoid arthritis, unspecified; E03.9 Hypothyroidism, unspecified; M81.0 Age-related osteoporosis without current pathological fracture; Z88.6 Allergy status to analgesic agent; Z88.1 Allergy status to other antibiotic agents; Z88.0 Allergy status to penicillin; Z88.8 Allergy status to other drugs, medicaments and biological substances; Z91.048 Other nonmedicinal substance allergy status; Z01.810 Encounter for preprocedural cardiovascular examination; Z68.41 Body mass index [BMI] 40.0-44.9, adult; Z86.718 Personal history of other venous thrombosis and embolism; Z86.711 Personal history of pulmonary embolism; Z85.3 Personal history of malignant neoplasm of breast; Z86.74 Personal history of sudden cardiac arrest; Z80.0 Family history of malignant neoplasm of digestive organs
CPT/HCPCS: 43239; 43450; 45384; 45385; 93005; J1980; J2001; J2250; J2704

== ENCOUNTER → 2019-02-09 | Outpatient (CLI) | payer BC ==
[~2019-02-09] MED LIST changes: -FENTANYL CITRATE/PF 100MCG/2 ML INJ ONE; -HEPARIN 500 UNITS/5ML MDV INJ ONE; -HYOSCYAMINE SULFATE 0.5 MG/ML INJ ONE; -LIDOCAINE HCL 2% LOCAL INJ 5 ML SDV VIAL INJ ONE; -MIDAZOLAM HCL 2 MG/2 ML VIAL ONE; -PROPOFOL IV EMULSION 10 MG/ML 50 ML VIAL ONE
--- NOTE | 2019-02-09 10:03 | Diagnostic Imaging Report ---
EXAM: US ABDOMEN COMPLETE DATE: 02/09/2019 8:50 AM Time stamp on exam: INDICATION: Hepatitis C COMPARISON: None TECHNIQUE: Transverse and longitudinal alaniz scale and color doppler sonographic images of the upper abdomen were obtained. FINDINGS: LIVER 14.2 cm in the right midclavicular line. Normal echogenicity, normal contour, no masses. SPLEEN 8.6 cm in maximum diameter. Normal echogenicity, no masses. GALLBLADDER Surgically removed. BILE DUCTS No intra nor extra-hepatic biliary dilation. Common bile duct measures 0.4 cm PANCREAS: Visualized portions are normal. RIGHT KIDNEY: 10.7 cm Echogenicity: Normal Collecting System: No hydronephrosis Stones: None Cyst/Mass: None LEFT KIDNEY: 10.1 cm Echogenicity: Normal Collecting System: No hydronephrosis Stones: None Cyst/Mass: None VESSELS: Aorta: Nonaneurysmal. Inferior Vena Cava: Patent. Main Portal Vein: 0.9 cm, normal size with hepatopetal flow. FREE FLUID: None IMPRESSION: Status post cholecystectomy. Otherwise unremarkable abdominal ultrasound. Signed by: Dr. Rafi Wray M.D. on 02/09/2019 10:00 AM
== END ==
LOC: US 08:43
PROVIDERS: ATTEND Internal Medicine Gastroenterology
DX: B19.20 Unspecified viral hepatitis C without hepatic coma (principal)
CPT/HCPCS: 76700

== ENCOUNTER 2020-07-21 18:14 | Emergency (ER) | payer BC ==
[~2020-07-21] VITALS: Ht 162.6 cm; Wt 114.8 kg
[2020-07-21 19:30] VITALS: BP 116/72
== END 2020-07-21 19:40 | disposition home or self-care (01) ==
LOC: ER 18:50
DX: S22.32XA Fracture of one rib, left side, initial encounter for closed fracture (principal); W01.198A Fall on same level from slipping, tripping and stumbling with subsequent striking against other object, initial encounter; Y92.008 Other place in unspecified non-institutional (private) residence as the place of occurrence of the external cause; N18.9 Chronic kidney disease, unspecified; M32.9 Systemic lupus erythematosus, unspecified; E03.9 Hypothyroidism, unspecified; K21.9 Gastro-esophageal reflux disease without esophagitis; Z85.3 Personal history of malignant neoplasm of breast
CPT/HCPCS: 71101; 99283

== ENCOUNTER → 2020-11-07 | Day surgery (SDC) | payer BC ==
[2020-11-02 11:03] LABS: BASOPHILS # (AUTO) 0.1 (0.0-0.1); BASOPHILS % 0.7 % (0.0-1.0); EOSINOPHILS # (AUTO) 0.2 (0.0-0.4); EOSINOPHILS % 1.9 % (0.0-6.0); HEMATOCRIT 40.3 % (34.2-44.1); HEMOGLOBIN 12.8 g/dL (12.0-16.0); LYMPHOCYTES # (AUTO) 1.7 (1.0-3.2); LYMPHOCYTES % 20.6 % (18.0-39.1); MEAN CORPUSCULAR HEMOGLOBIN 31.1 pg (28-32); MEAN CORPUSCULAR HGB CONC 31.8 g/dL (31-35); MEAN CORPUSCULAR VOLUME 98.1 fL (81-99); MONOCYTES # (AUTO) 0.5 (0.2-0.8); MONOCYTES % 6.6 % (4.4-11.3); NEUTROPHILS # (AUTO) 5.6 (2.1-6.9); NEUTROPHILS % 69.5 % (38.7-80.0); PLATELET COUNT 302 x10e3/uL (140-360); RED BLOOD COUNT 4.11 x10e6/uL (3.6-5.1); RED CELL DISTRIBUTION WIDTH 13.8 % (11.7-14.4)
[2020-11-02 11:35] LABS: ALANINE AMINOTRANSFERASE 21 IU/L (0-55); ALBUMIN 3.1 g/dL (3.5-5.0); ALBUMIN/GLOBULIN RATIO 0.9 (0.8-2.0); ALKALINE PHOSPHATASE 82 IU/L (40-150); ANION GAP 17.5 mmol/L (8-16); BLOOD UREA NITROGEN 6 mg/dL (7-26); BUN/CREATININE RATIO 8 (6-25); CALCIUM 8.6 mg/dL (8.4-10.2); CARBON DIOXIDE 26 mmol/L (22-29); CHLORIDE 101 mmol/L (98-107); CREATININE, SERUM 0.72 mg/dL (0.57-1.11); EST GLOMERULAR FILTRATION RATE > 60 ML/MIN (60-); GLUCOSE 103 mg/dL (74-118); POTASSIUM 4.5 mmol/L (3.5-5.1); SODIUM 140 mmol/L (136-145)
[~2020-11-07] VITALS: Ht 165.1 cm; Wt 117.9 kg
[~2020-11-07] MED LIST changes: +ALPRAZOLAM 0.5 MG TAB ONE; +CALTRATE 600 +1 EAC1 PO; +CENTRUM SILVER1 EAC3 PO; +DICYCLOMINE HCL10 MG PO; +DIPHENHYDRAMINE HCL 25 MG CAP ONE; +DIPHENHYDRAMINE HCL INJ 50 MG/ML VIAL ONE; +ETODOLAC400 MG PO; +FENTANYL CITRATE/PF 100MCG/2 ML INJ ONE; +HEPARIN SOD/SOD CHLORIDE 2,000 ML ONE; +IOPAMIDOL 370 MG/ML 200 ML INFUS..BTL INJ ONE; +K-DUR20 MEQ PO; +LIDOCAINE HCL 2% LOCAL 20 ML VIAL ONE; +METHOCARBAMOL750 MG PO; +MIDAZOLAM HCL 2 MG/2 ML VIAL ONE; +SODIUM CHLORIDE 0.9% 1000ML 1,000 ML ONE; +VESICARE5 MG PO
[2020-11-07 10:40] VITALS: BP 149/69
[2020-11-07 10:55] VITALS: BP 139/79
[2020-11-07 11:11] VITALS: BP 138/75
[2020-11-07 11:23] VITALS: BP 135/70
[2020-11-07 11:38] VITALS: BP 131/72
[2020-11-07 11:50] VITALS: BP 142/87
== END | disposition home or self-care (01) ==
LOC: CATH LAB 07:36
PROVIDERS: ATTEND Internal Medicine Interventional Cardiology
DX: I25.118 Atherosclerotic heart disease of native coronary artery with other forms of angina pectoris (principal); I82.409 Acute embolism and thrombosis of unspecified deep veins of unspecified lower extremity; R94.39 Abnormal result of other cardiovascular function study; I10 Essential (primary) hypertension; I73.9 Peripheral vascular disease, unspecified; Z01.812 Encounter for preprocedural laboratory examination; Z20.822 Contact with and (suspected) exposure to COVID-19; Z68.41 Body mass index [BMI] 40.0-44.9, adult; Z82.49 Family history of ischemic heart disease and other diseases of the circulatory system; Z82.3 Family history of stroke; Z83.3 Family history of diabetes mellitus
CPT/HCPCS: 36415; 76937; 80053; 85025; 93458; C1887; J1200; J2001; J2250; J3010; J7030; Q9967; U0002; 99152

== ENCOUNTER 2021-06-07 12:29 | Emergency (ER) | payer BC ==
[~2021-06-07] VITALS: Ht 162.6 cm; Wt 122.5 kg
[~2021-06-07 12:29] MED LIST changes: -ALPRAZOLAM 0.5 MG TAB ONE; -DIPHENHYDRAMINE HCL 25 MG CAP ONE; -DIPHENHYDRAMINE HCL INJ 50 MG/ML VIAL ONE; -FENTANYL CITRATE/PF 100MCG/2 ML INJ ONE; -HEPARIN SOD/SOD CHLORIDE 2,000 ML ONE; -IOPAMIDOL 370 MG/ML 200 ML INFUS..BTL INJ ONE; -LIDOCAINE HCL 2% LOCAL 20 ML VIAL ONE; -MIDAZOLAM HCL 2 MG/2 ML VIAL ONE; -SODIUM CHLORIDE 0.9% 1000ML 1,000 ML ONE
[2021-06-07] MEDS ORDERED: CASIRIVIMAB/IMDEVIMAB 10 ML in SODIUM CHLORIDE 0.9% 100 ML IV ONE (12:45)
[2021-06-07 13:40] VITALS: BP 148/74
== END 2021-06-07 13:40 | disposition home or self-care (01) ==
LOC: ER 12:38
DX: R06.02 Shortness of breath (principal); R11.2 Nausea with vomiting, unspecified; U07.1 COVID-19; R19.7 Diarrhea, unspecified
CPT/HCPCS: 99283

== ENCOUNTER 2021-11-25 07:32 | Inpatient (IN) | payer BC ==
[~2021-11-25] VITALS: Ht 162.6 cm; Wt 117.9 kg
[2021-11-25 07:57] LABS: BASOPHILS # (AUTO) 0.1 (0.0-0.1); BASOPHILS % 0.7 % (0.0-1.0); EOSINOPHILS # (AUTO) 0.2 (0.0-0.4); EOSINOPHILS % 1.9 % (0.0-6.0); HEMATOCRIT 37.1 % (34.2-44.1); HEMOGLOBIN 11.9 g/dL (12.0-16.0); LYMPHOCYTES # (AUTO) 1.2 (1.0-3.2); LYMPHOCYTES % 12.3 % (18.0-39.1); MEAN CORPUSCULAR HEMOGLOBIN 28.7 pg (28-32); MEAN CORPUSCULAR HGB CONC 32.1 g/dL (31-35); MEAN CORPUSCULAR VOLUME 89.4 fL (81-99); MONOCYTES # (AUTO) 0.9 (0.2-0.8); MONOCYTES % 8.8 % (4.4-11.3); NEUTROPHILS # (AUTO) 7.6 (2.1-6.9); NEUTROPHILS % 75.8 % (38.7-80.0); PLATELET COUNT 289 x10e3/uL (140-360); RED BLOOD COUNT 4.15 x10e6/uL (3.6-5.1); RED CELL DISTRIBUTION WIDTH 16.7 % (11.7-14.4)
[2021-11-25 08:06] LABS: INR 1.01; PROTHROMBIN TIME 14.2 seconds (11.9-14.5)
[2021-11-25 08:07] LABS: PARTIAL THROMBOPLASTIN TIME 28.3 seconds (23.8-35.5)
[2021-11-25 08:14] LABS: ALBUMIN 2.7 g/dL (3.5-5.0); ALBUMIN/GLOBULIN RATIO 0.8 (0.8-2.0); ANION GAP 17.6 mmol/L (8-16); CALCIUM 9.1 mg/dL (8.4-10.2); CREATININE, SERUM 0.69 mg/dL (0.57-1.11); MAGNESIUM 1.7 MG/DL (1.3-2.1); POTASSIUM 3.6 mmol/L (3.5-5.1)
[2021-11-25 08:21] LABS: CREATINE KINASE MB 0.4 ng/mL (0-5.0)
[2021-11-25] MEDS ORDERED: LISINOPRIL5 MG PO (08:53)
[2021-11-25] MEDS ORDERED: HYDROCODON-ACE1 EAC9 PO (08:53)
[2021-11-25] MEDS ORDERED: MYRBETRIQ50 MG PO (08:53)
[2021-11-25] MEDS ORDERED: vitamin d3 PO (08:53)
[2021-11-25] MEDS ORDERED: SODIUM CHLORIDE 0.9% 50ML 50 ML ONE ×2 (09:21→12:53)
[2021-11-25] MEDS ORDERED: IOPAMIDOL 370 MG/ML 200 ML INFUS..BTL INJ ONE (09:22)
[2021-11-25] MEDS ORDERED: FAMOTIDINE 20 MG/2 ML VIAL IV SCH (09:30)
[2021-11-25] MEDS ORDERED: ONDANSETRON HCL INJ 2MG/ML 2ML 2 MG/ML VIAL IV PRN (09:30)
[2021-11-25] MEDS ORDERED: ENOXAPARIN SODIUM INJ 100 MG/ML SYR SC ONE (10:00)
[2021-11-25] MEDS ORDERED: ALPRAZOLAM PO PRN (11:30)
[2021-11-25] MEDS ORDERED: LEVOFLOXACIN 500MG/D5W 100ML 100 ML IV SCH (11:30)
[2021-11-25] MEDS ORDERED: COLESTIPOL HCL 1 G TAB PO PRN (11:30)
[2021-11-25 11:45] VITALS: BP 130/77
[2021-11-25 12:00] VITALS: BP 130/77
[2021-11-25] MEDS ORDERED: PROMETHAZINE HCL 25 MG TAB PO SCH (13:00)
[2021-11-25 13:31] LABS: CREATINE KINASE MB 0.6 ng/mL (0-5.0)
[2021-11-25] MEDS: DICYCLOMINE HCL 10 MG CAP PO SCH ×3 (15:00→19:58)
[2021-11-25 16:48] VITALS: BP 127/65
[2021-11-25] MEDS ORDERED: HYDROXYCHLOROQUINE SULFATE 200 MG TAB PO SCH (17:00)
[2021-11-25] MEDS: METHOCARBAMOL 750 MG TAB PO SCH (17:01)
[2021-11-25] MEDS: NYSTATIN 15 GM POWDER UD BTL TOP SCH (17:01)
[2021-11-25] MEDS: HYDROCODONE/APAP 10MG-325MG TAB PO PRN (18:42)
[2021-11-25 20:05] VITALS: BP 132/60
[2021-11-25 21:00] VITALS: BP 132/60
[2021-11-25 22:19] LABS: CREATINE KINASE MB 0.6 ng/mL (0-5.0)
[2021-11-25] MEDS: CEFTRIAXONE 1 GM in SODIUM CHLORIDE 0.9% 50ML 50 ML IV SCH (23:36)
[2021-11-26 00:49] VITALS: BP 111/63
[2021-11-26] MEDS: HYDROCODONE/APAP 10MG-325MG TAB PO PRN (01:42)
[2021-11-26 04:00] VITALS: BP 120/67
[2021-11-26 05:12] LABS: BASOPHILS # (AUTO) 0.1 (0.0-0.1); BASOPHILS % 0.9 % (0.0-1.0); EOSINOPHILS # (AUTO) 0.4 (0.0-0.4); EOSINOPHILS % 6.2 % (0.0-6.0); HEMATOCRIT 32.7 % (34.2-44.1); HEMOGLOBIN 10.4 g/dL (12.0-16.0); LYMPHOCYTES # (AUTO) 1.3 (1.0-3.2); LYMPHOCYTES % 22.6 % (18.0-39.1); MEAN CORPUSCULAR HGB CONC 31.8 g/dL (31-35); MEAN CORPUSCULAR VOLUME 91.1 fL (81-99); MONOCYTES # (AUTO) 0.7 (0.2-0.8); MONOCYTES % 12.2 % (4.4-11.3); NEUTROPHILS # (AUTO) 3.3 (2.1-6.9); NEUTROPHILS % 57.7 % (38.7-80.0); PLATELET COUNT 219 x10e3/uL (140-360); RED BLOOD COUNT 3.59 x10e6/uL (3.6-5.1); RED CELL DISTRIBUTION WIDTH 16.3 % (11.7-14.4)
[2021-11-26 05:31] LABS: ALBUMIN 2.2 g/dL (3.5-5.0); ALBUMIN/GLOBULIN RATIO 0.7 (0.8-2.0); ANION GAP 13.2 mmol/L (8-16); CALCIUM 8.2 mg/dL (8.4-10.2); CREATININE, SERUM 0.6 mg/dL (0.57-1.11); POTASSIUM 3.2 mmol/L (3.5-5.1)
[2021-11-26 06:00] LABS: CREATINE KINASE MB 0.9 ng/mL (0-5.0)
[2021-11-26] MEDS ORDERED: LEVOTHYROXINE SODIUM 100 MCG TAB PO SCH (06:00)
[2021-11-26] MEDS ORDERED: FUROSEMIDE INJ 10 MG/ML 4 ML VIAL IV SCH (06:00)
[2021-11-26] MEDS ORDERED: POTASSIUM CHLORIDE 10MEQ EA PO ONE ×2 (07:15→09:15)
[2021-11-26 08:00] VITALS: BP 115/80
[2021-11-26 08:16] VITALS: BP 115/80
[2021-11-26] MEDS: CEFTRIAXONE 1 GM in SODIUM CHLORIDE 0.9% 50ML 50 ML IV SCH (08:47)
[2021-11-26] MEDS: DICYCLOMINE HCL 10 MG CAP PO SCH (08:48)
[2021-11-26] MEDS: METHOCARBAMOL 750 MG TAB PO SCH (08:48)
[2021-11-26] MEDS ORDERED: CALCIUM CARBONATE PO SCH (09:00)
[2021-11-26] MEDS ORDERED: CHOLECALCIFEROL 1,000 UNIT TAB PO SCH (09:00)
[2021-11-26] MEDS ORDERED: SOLIFENACIN SUCCINATE 5 MG TAB PO SCH (09:00)
[2021-11-26] MEDS: NYSTATIN 15 GM POWDER UD BTL TOP SCH (09:00)
[2021-11-26] MEDS ORDERED: LISINOPRIL 2.5 MG TAB PO SCH (09:00)
[2021-11-26] MEDS ORDERED: Mirabegron (Myrbetriq) 50 MG TAB PO SCH (09:00)
[2021-11-26] MEDS ORDERED: ETODOLAC 500 MG PO SCH (09:00)
[2021-11-26] MEDS ORDERED: VITAMIN D3 PO SCH (09:00)
[2021-11-26] MEDS ORDERED: MULTIVITAMINS/MINERALS TAB PO SCH (09:00)
[2021-11-26] MEDS ORDERED: ASCORBIC ACID 500 MG TAB PO SCH (09:00)
[2021-11-26] MEDS ORDERED: METOPROLOL TARTRATE 50 MG TAB PO SCH (09:00)
[2021-11-26] MEDS ORDERED: ESCITALOPRAM OXALATE 10 MG TAB PO SCH (09:00)
[2021-11-26] MEDS ORDERED: LEVOFLOXACIN 750MG/D5W 150ML 150 ML IV SCH (10:00)
[2021-11-26] MEDS ORDERED: HEPARIN 500 UNITS/5ML MDV INJ STA (10:25)
[2021-11-27] MEDS ORDERED: LEVOFLOXACIN 250 MG TAB PO SCH (10:00)
== END 2021-11-26 11:00 | disposition home or self-care (01) | DRG 177 ==
LOC: ER 07:38 → ERHOLD 09:16 → MED/SURG3 11:38
PROVIDERS: ADMIT Internal Medicine; ATTEND Internal Medicine
DX: J15.6 Pneumonia due to other Gram-negative bacteria (principal); I50.33 Acute on chronic diastolic (congestive) heart failure; Z68.41 Body mass index [BMI] 40.0-44.9, adult; I11.0 Hypertensive heart disease with heart failure; E66.01 Morbid (severe) obesity due to excess calories; D63.8 Anemia in other chronic diseases classified elsewhere; M32.9 Systemic lupus erythematosus, unspecified; Z20.822 Contact with and (suspected) exposure to COVID-19; Z79.899 Other long term (current) drug therapy; Z86.711 Personal history of pulmonary embolism; Z79.01 Long term (current) use of anticoagulants; Z88.1 Allergy status to other antibiotic agents; Z88.5 Allergy status to narcotic agent; Z88.0 Allergy status to penicillin; M06.9 Rheumatoid arthritis, unspecified
CPT/HCPCS: 36415; 70450; 71045; 71260; 80053; 82550; 82553; 82948; 83735; 83880; 84484; 85025; 85379; 85610; 85730; 87040; 93005; 93306; 94799; 99284; J0696; J1650; J1940; J1956; Q9967; U0002

== ENCOUNTER → 2021-12-14 | Outpatient (CLI) | payer BC ==
[~2021-12-14] MED LIST changes: +HYDROCODON-ACE1 EAC9 PO; +LISINOPRIL5 MG PO; +vitamin d3 PO
== END ==
LOC: NM 12:47
PROVIDERS: ATTEND Internal Medicine Interventional Cardiology
DX: I26.99 Other pulmonary embolism without acute cor pulmonale (principal)
CPT/HCPCS: 78580; A9540

== ENCOUNTER → 2022-11-22 | Day surgery (SDC) | payer BC ==
[~2022-11-22] MED LIST changes: +EPHEDRINE SULFATE INJ 50 MG/ML VIAL ONE; +GEMTESA75 MG PO; +GLYCOPYRROLATE INJ 0.2 MG/ML VIAL ONE; +HEPARIN 500 UNITS/5ML MDV INJ ONE; +HYOSCYAMINE SULFATE 0.5 MG/ML INJ ONE; +LIDOCAINE HCL 2% LOCAL INJ 5 ML SDV VIAL INJ ONE; +MIDAZOLAM HCL 2 MG/2 ML VIAL ONE; +ONDANSETRON HCL INJ 2MG/ML 2ML 2 MG/ML VIAL ONE; +POVIDONE IODINE 0.05% 0.05 % ML PO ONE; +PROPOFOL IV EMULSION 10 MG/ML 20 ML VIAL ONE; +TRIZANIDINE PO
[2022-11-22 12:30] VITALS: BP 132/60
[2022-11-26 14:13] LABS: ENDOMYSIAL ANTIBODIES, IGA Negative (Negative)
== END | disposition home or self-care (01) ==
LOC: OR 08:03
PROVIDERS: ATTEND Internal Medicine Gastroenterology
DX: K29.50 Unspecified chronic gastritis without bleeding (principal); D12.3 Benign neoplasm of transverse colon; D12.2 Benign neoplasm of ascending colon; K52.9 Noninfective gastroenteritis and colitis, unspecified; K20.90 Esophagitis, unspecified without bleeding; K57.30 Diverticulosis of large intestine without perforation or abscess without bleeding; K62.89 Other specified diseases of anus and rectum; E03.9 Hypothyroidism, unspecified; Z01.810 Encounter for preprocedural cardiovascular examination; Z79.899 Other long term (current) drug therapy
CPT/HCPCS: 43239; 45380; 45385; 82784; 83516; 83630; 83993; 86256; 87045; 87177; 87324; 87328; 87449; 93005; C9113; J1980; J2001; J2250; J2405; J2704; 43450; 45378

== ENCOUNTER → 2024-01-26 | Outpatient (REF) | payer BC ==
[2024-01-19 10:06] LABS: BASOPHILS # (AUTO) 0.1 (0.0-0.1); BASOPHILS % 1.5 % (0.0-1.0); EOSINOPHILS # (AUTO) 0.1 (0.0-0.4); EOSINOPHILS % 2.1 % (0.0-6.0); HEMATOCRIT 37.8 % (34.2-44.1); HEMOGLOBIN 12.9 g/dL (12.0-16.0); LYMPHOCYTES # (AUTO) 2.2 (1.0-3.2); LYMPHOCYTES % 31.8 % (18.0-39.1); MEAN CORPUSCULAR HEMOGLOBIN 29.1 pg (28-32); MEAN CORPUSCULAR HGB CONC 34.1 g/dL (31-35); MEAN CORPUSCULAR VOLUME 85.3 fL (81-99); MONOCYTES # (AUTO) 0.8 (0.2-0.8); MONOCYTES % 11.8 % (4.4-11.3); NEUTROPHILS # (AUTO) 3.6 (2.1-6.9); NEUTROPHILS % 52.5 % (38.7-80.0); PLATELET COUNT 307 x10e3/uL (140-360); RED BLOOD COUNT 4.43 x10e6/uL (3.6-5.1); RED CELL DISTRIBUTION WIDTH 15.8 % (11.7-14.4)
[2024-01-19 10:25] LABS: ALBUMIN 2.8 g/dL (3.5-5.0); ALBUMIN/GLOBULIN RATIO 0.7 (0.8-2.0); ANION GAP 17.1 mmol/L (8-16); BILIRUBIN,TOTAL 0.9 mg/dL (0.2-1.2); CALCIUM 8.3 mg/dL (8.4-10.2); CREATININE, SERUM 0.91 mg/dL (0.57-1.11); MAGNESIUM 1.4 MG/DL (1.3-2.1); PHOSPHORUS 2.9 MG/DL (2.3-4.7); TOTAL PROTEIN 6.7 g/dL (6.5-8.1)
[2024-01-19 10:32] LABS: POTASSIUM 3.1 mmol/L (3.5-5.1)
[~2024-01-26] MED LIST changes: +BACLOFEN10 MG PO; +DEXILANT60 MG PO; -EPHEDRINE SULFATE INJ 50 MG/ML VIAL ONE; -GLYCOPYRROLATE INJ 0.2 MG/ML VIAL ONE; -HEPARIN 500 UNITS/5ML MDV INJ ONE; -HYOSCYAMINE SULFATE 0.5 MG/ML INJ ONE; +HYOSCYAMINE0.375 MG PO; +LEVSIN0.125 MG PO; -LIDOCAINE HCL 2% LOCAL INJ 5 ML SDV VIAL INJ ONE; -MIDAZOLAM HCL 2 MG/2 ML VIAL ONE; -ONDANSETRON HCL INJ 2MG/ML 2ML 2 MG/ML VIAL ONE; +ONDANSETRON ODT8 MG PO; +PANTOPRAZOLE SO40 MG PO; +PEPCID20 MG PO; +PERCOCET 10-321 EACH PO; -POVIDONE IODINE 0.05% 0.05 % ML PO ONE; -PROPOFOL IV EMULSION 10 MG/ML 20 ML VIAL ONE; +SUCRALFATE1 GM PO; +erythromycin PO
== END ==
LOC: NM 01-19 08:24
PROVIDERS: ATTEND Nurse Practitioner
DX: K31.84 Gastroparesis (principal); K29.60 Other gastritis without bleeding
CPT/HCPCS: 36415; 78264; 80053; 82948; 83735; 84100; 85025; A9541

== ENCOUNTER 2024-04-17 17:47 | Observation (INO) | payer BC ==
[~2024-04-17] VITALS: Ht 162.6 cm; Wt 92.3 kg
[2024-04-17 19:27] VITALS: TEMP 98.2
[2024-04-17 20:12] LABS: BASOPHILS # (AUTO) 0.1 (0.0-0.1); BASOPHILS % 0.7 % (0.0-1.0); EOSINOPHILS # (AUTO) 0.1 (0.0-0.4); EOSINOPHILS % 1.4 % (0.0-6.0); HEMATOCRIT 39.3 % (34.2-44.1); HEMOGLOBIN 12.8 g/dL (12.0-16.0); LYMPHOCYTES # (AUTO) 2.9 (1.0-3.2); LYMPHOCYTES % 32.3 % (18.0-39.1); MEAN CORPUSCULAR HEMOGLOBIN 27.2 pg (28-32); MEAN CORPUSCULAR HGB CONC 32.6 g/dL (31-35); MEAN CORPUSCULAR VOLUME 83.4 fL (81-99); MONOCYTES # (AUTO) 0.6 (0.2-0.8); MONOCYTES % 6.5 % (4.4-11.3); NEUTROPHILS # (AUTO) 5.3 (2.1-6.9); NEUTROPHILS % 58.9 % (38.7-80.0); PLATELET COUNT 393 x10e3/uL (140-360); RED BLOOD COUNT 4.71 x10e6/uL (3.6-5.1); WHITE BLOOD COUNT 9.06 x10e3/uL (4.8-10.8)
[2024-04-17 20:28] LABS: ALBUMIN 2.7 g/dL (3.5-5.0); ALBUMIN/GLOBULIN RATIO 0.6 (0.8-2.0); BILIRUBIN,TOTAL 0.9 mg/dL (0.2-1.2); CALCIUM 8.7 mg/dL (8.4-10.2); CREATININE, SERUM 0.72 mg/dL (0.57-1.11); LIPASE 11 U/L (8-78); TOTAL PROTEIN 6.9 g/dL (6.5-8.1)
[2024-04-17 20:34] LABS: TROPONIN I < 0.001 ng/mL (0-0.300)
[2024-04-17 20:45] LABS: INFLUENZAE A&B ANTIGEN (RAPID) NEGATIVE (NEGATIVE); RESPIRATORY SYNC. VIRUS NEGATIVE (NEGATIVE)
[2024-04-17] MEDS: ONDANSETRON HCL INJ 2MG/ML 2ML 2 MG/ML VIAL IV STA (22:17)
[2024-04-17] MEDS: SODIUM CHLORIDE 0.9% 500ML 500 ML IV ONE (22:35)
[2024-04-17] MEDS ORDERED: SODIUM CHLORIDE 0.9% 500ML 500 ML ONE (22:35)
[2024-04-17 23:17] LABS: COLOR,URINE AMBER (YELLOW)
[2024-04-17 23:18] LABS: BILIRUBIN,URINE 1+ (NEGATIVE); CLARITY,URINE CLOUDY (CLEAR); GLUCOSE, URINE NEGATIVE (NEGATIVE); KETONES,URINE 1+ (NEGATIVE); LEUKOCYTE ESTERASE ,URINE NEGATIVE (NEGATIVE); NITRITE,URINE NEGATIVE (NEGATIVE); PH,URINE 6.5 (5 - 7); PROTEIN,URINE DIPSTICK 1+ (NEGATIVE); URINE UROBILINOGEN 0.2 mg/dL (0.2 - 1)
[2024-04-17 23:27] LABS: BACTERIA,URINE MANY /HPF; EPITHELIAL CELLS,URINE FEW /LPF; MUCUS,URINE MANY (RARE); WBC,URINE (MAN) 21-50 /HPF (0-5)
[2024-04-17 23:31] VITALS: PULSE 72; RESP 18; O2SAT 99
[2024-04-17] MEDS: SODIUM CHLORIDE 0.9% 1000ML 1,000 ML IV ONE (23:57)
[2024-04-18] VITALS (12 sets, daily range): BP systolic 135–153; BP diastolic 79–87; PULSE 75–82; RESP 18–19; TEMP 98–99.3; O2SAT 93–98
[2024-04-18] MEDS: METOCLOPRAMIDE HCL 10 MG/2ML VIAL IV SCH
[2024-04-18] MEDS ORDERED: REGLAN10 MG PO (03:48)
[2024-04-18] MEDS ORDERED: ONDANSETRON ODT4 MG PO (03:48)
[2024-04-18] MEDS ORDERED: SCOPOLAMINE1 EACH (03:48)
[2024-04-18] MEDS: ONDANSETRON HCL INJ 2MG/ML 2ML 2 MG/ML VIAL IV PRN (05:05)
[2024-04-18 08:59] LABS: BASOPHILS % 0.5 % (0.0-1.0); EOSINOPHILS # (AUTO) 0.1 (0.0-0.4); EOSINOPHILS % 1.3 % (0.0-6.0); HEMATOCRIT 33.3 % (34.2-44.1); HEMOGLOBIN 10.6 g/dL (12.0-16.0); LYMPHOCYTES % 22.9 % (18.0-39.1); MEAN CORPUSCULAR HEMOGLOBIN 27.1 pg (28-32); MEAN CORPUSCULAR HGB CONC 31.8 g/dL (31-35); MEAN CORPUSCULAR VOLUME 85.2 fL (81-99); MONOCYTES # (AUTO) 0.7 (0.2-0.8); MONOCYTES % 7.9 % (4.4-11.3); NEUTROPHILS # (AUTO) 5.8 (2.1-6.9); NEUTROPHILS % 67.1 % (38.7-80.0); PLATELET COUNT 299 x10e3/uL (140-360); RED BLOOD COUNT 3.91 x10e6/uL (3.6-5.1); RED CELL DISTRIBUTION WIDTH 16.8 % (11.7-14.4); WHITE BLOOD COUNT 8.66 x10e3/uL (4.8-10.8)
[2024-04-18 09:24] LABS: ALBUMIN 2.2 g/dL (3.5-5.0); ALBUMIN/GLOBULIN RATIO 0.6 (0.8-2.0); ANION GAP 15.7 mmol/L (8-16); BILIRUBIN,TOTAL 0.8 mg/dL (0.2-1.2); CALCIUM 7.9 mg/dL (8.4-10.2); CREATININE, SERUM 0.64 mg/dL (0.57-1.11); TOTAL PROTEIN 5.6 g/dL (6.5-8.1)
[2024-04-18 09:27] LABS: POTASSIUM 2.7 mmol/L (3.5-5.1)
[2024-04-18] MEDS ORDERED: HYDROMORPHONE 1MG/1ML INJ IV PRN (10:30)
[2024-04-18] MEDS: POTASSIUM CHLORIDE 20MEQ/100ML 100 ML IV SCH (10:30)
[2024-04-18] MEDS: SCOPOLAMINE 1 MG PATCH TOP SCH (11:42)
[2024-04-18] MEDS: SODIUM CHLORIDE 0.9% 250ML 250 ML ONE (15:42)
[2024-04-19 01:52] VITALS: BP 148/85; PULSE 78; RESP 16; TEMP 99.5; O2SAT 96
[2024-04-19 05:00] LABS: BASOPHILS # (AUTO) 0.1 (0.0-0.1); BASOPHILS % 0.8 % (0.0-1.0); EOSINOPHILS # (AUTO) 0.1 (0.0-0.4); EOSINOPHILS % 1.5 % (0.0-6.0); HEMATOCRIT 32.3 % (34.2-44.1); HEMOGLOBIN 10.4 g/dL (12.0-16.0); LYMPHOCYTES # (AUTO) 2.3 (1.0-3.2); LYMPHOCYTES % 25.4 % (18.0-39.1); MEAN CORPUSCULAR HEMOGLOBIN 27.4 pg (28-32); MEAN CORPUSCULAR HGB CONC 32.2 g/dL (31-35); MONOCYTES # (AUTO) 0.8 (0.2-0.8); MONOCYTES % 8.6 % (4.4-11.3); NEUTROPHILS # (AUTO) 5.6 (2.1-6.9); NEUTROPHILS % 63.1 % (38.7-80.0); PLATELET COUNT 255 x10e3/uL (140-360); RED CELL DISTRIBUTION WIDTH 17.2 % (11.7-14.4); WHITE BLOOD COUNT 8.85 x10e3/uL (4.8-10.8)
[2024-04-19 05:37] LABS: ALBUMIN 2.2 g/dL (3.5-5.0); ALBUMIN/GLOBULIN RATIO 0.7 (0.8-2.0); ANION GAP 15.1 mmol/L (8-16); BILIRUBIN,TOTAL 0.6 mg/dL (0.2-1.2); CALCIUM 7.4 mg/dL (8.4-10.2); CREATININE, SERUM 0.6 mg/dL (0.57-1.11); TOTAL PROTEIN 5.5 g/dL (6.5-8.1)
[2024-04-19 05:42] LABS: POTASSIUM 3.1 mmol/L (3.5-5.1)
[2024-04-19 05:45] VITALS: BP 145/82; PULSE 72; RESP 16; TEMP 98.9; O2SAT 98
[2024-04-19 07:35] VITALS: BP 143/85; PULSE 75; RESP 18; TEMP 98; O2SAT 97
[2024-04-19 08:00] VITALS: BP 143/85; PULSE 75; RESP 18; TEMP 98; O2SAT 97
[2024-04-19] MEDS: POTASSIUM CHLORIDE 10MEQ EA PO ONE ×2 (10:22→12:18)
[2024-04-19 11:14] VITALS: BP 160/86; PULSE 79; RESP 18; TEMP 98.1; O2SAT 98
== END 2024-04-19 14:09 | disposition home or self-care (01) ==
LOC: ER 18:37 → ERHOLD 23:11 → MED/SURG3 04-18 01:50 → OBSVTOIN 04-18 09:48 → INTOOBSV 04-18 09:48
PROVIDERS: ADMIT Internal Medicine; ATTEND Internal Medicine
DX: K31.84 Gastroparesis (principal); K29.70 Gastritis, unspecified, without bleeding; N39.0 Urinary tract infection, site not specified; E87.6 Hypokalemia; K21.9 Gastro-esophageal reflux disease without esophagitis; I11.0 Hypertensive heart disease with heart failure; I50.9 Heart failure, unspecified; I25.2 Old myocardial infarction; M32.9 Systemic lupus erythematosus, unspecified; M06.9 Rheumatoid arthritis, unspecified; M81.0 Age-related osteoporosis without current pathological fracture; M47.816 Spondylosis without myelopathy or radiculopathy, lumbar region; G89.4 Chronic pain syndrome; R26.9 Unspecified abnormalities of gait and mobility; F11.90 Opioid use, unspecified, uncomplicated; F41.9 Anxiety disorder, unspecified; E66.9 Obesity, unspecified; Z68.34 Body mass index [BMI] 34.0-34.9, adult; Z87.19 Personal history of other diseases of the digestive system; Z98.84 Bariatric surgery status; Z90.49 Acquired absence of other specified parts of digestive tract; Z85.3 Personal history of malignant neoplasm of breast; Z11.52 Encounter for screening for COVID-19; Z79.899 Other long term (current) drug therapy
CPT/HCPCS: 36415; 71045; 80053; 81001; 83690; 83880; 84484; 85025; 87086; 87400; 87420; 93005; 94799; 99284; G0378; J0696; J2405; J2470; J2765; J3480; J7030; J7040; J7050; U0002

== ENCOUNTER → 2024-05-04 | Outpatient (REF) | payer BC ==
[~2024-05-04] MED LIST changes: +ONDANSETRON ODT4 MG PO; +REGLAN10 MG PO; +SCOPOLAMINE1 EACH
== END ==
LOC: MRI 12:51
PROVIDERS: ATTEND Psychiatry & Neurology Clinical Neurophysiology
DX: I63.39 Cerebral infarction due to thrombosis of other cerebral artery (principal); I61.8 Other nontraumatic intracerebral hemorrhage; M47.22 Other spondylosis with radiculopathy, cervical region; M47.27 Other spondylosis with radiculopathy, lumbosacral region
CPT/HCPCS: 70551; 72141; 72148

== ENCOUNTER → 2024-05-14 | Outpatient (REF) | payer BC ==
[~2024-05-14] MED LIST changes: +FENTANYL CITRATE/PF 100MCG/2 ML INJ ONE; +HEPARIN SOD (PORCINE) 1000 UNIT/ML SDV ONE; +IOPAMIDOL 370 MG/ML 100 ML INFUS..BTL INJ ONE; +LIDOCAINE 2% /EPINEPHRINE 20 ML SDV INJ ONE; +LIDOCAINE HCL 1% LOCAL INJ 20 ML VIAL ONE; +MIDAZOLAM HCL 2 MG/2 ML VIAL ONE; +SODIUM CHLORIDE 0.9% 250ML 250 ML ONE; +SODIUM CHLORIDE 0.9% 500ML 500 ML ONE
[2024-05-14 11:40] LABS: BASOPHILS # (AUTO) 0.1 (0.0-0.1); BASOPHILS % 1.2 % (0.0-1.0); EOSINOPHILS # (AUTO) 0.2 (0.0-0.4); HEMATOCRIT 34.6 % (34.2-44.1); HEMOGLOBIN 11.1 g/dL (12.0-16.0); LYMPHOCYTES # (AUTO) 2.2 (1.0-3.2); LYMPHOCYTES % 26.7 % (18.0-39.1); MEAN CORPUSCULAR HEMOGLOBIN 27.1 pg (28-32); MEAN CORPUSCULAR HGB CONC 32.1 g/dL (31-35); MEAN CORPUSCULAR VOLUME 84.4 fL (81-99); MONOCYTES # (AUTO) 0.6 (0.2-0.8); MONOCYTES % 6.9 % (4.4-11.3); NEUTROPHILS # (AUTO) 5.1 (2.1-6.9); NEUTROPHILS % 62.8 % (38.7-80.0); PLATELET COUNT 279 x10e3/uL (140-360); RED CELL DISTRIBUTION WIDTH 16.3 % (11.7-14.4); WHITE BLOOD COUNT 8.14 x10e3/uL (4.8-10.8)
[2024-05-14 12:04] LABS: PROTHROMBIN TIME 13.7 seconds (11.9-14.5)
[2024-05-14 12:05] LABS: PARTIAL THROMBOPLASTIN TIME 23.8 seconds (23.8-35.5)
== END ==
LOC: DX 10:54
PROVIDERS: ATTEND Internal Medicine
DX: T82.898A Other specified complication of vascular prosthetic devices, implants and grafts, initial encounter (principal); K31.84 Gastroparesis
CPT/HCPCS: 36415; 36561; 76937; 85025; 85610; 85730; C1769; C1788; J0690; J1644; J2001 ×2; J2250; J3010; J7040; J7050; Q9967; 36590; 99152; 99153

== ENCOUNTER → 2024-09-24 | Outpatient (REF) | payer BC ==
[~2024-09-24] MED LIST changes: -FENTANYL CITRATE/PF 100MCG/2 ML INJ ONE; -HEPARIN SOD (PORCINE) 1000 UNIT/ML SDV ONE; -IOPAMIDOL 370 MG/ML 100 ML INFUS..BTL INJ ONE; -LIDOCAINE 2% /EPINEPHRINE 20 ML SDV INJ ONE; -LIDOCAINE HCL 1% LOCAL INJ 20 ML VIAL ONE; -MIDAZOLAM HCL 2 MG/2 ML VIAL ONE; -SODIUM CHLORIDE 0.9% 250ML 250 ML ONE; -SODIUM CHLORIDE 0.9% 500ML 500 ML ONE
== END ==
LOC: US 10:28
PROVIDERS: ATTEND Nurse Practitioner
DX: R74.8 Abnormal levels of other serum enzymes (principal); K76.0 Fatty (change of) liver, not elsewhere classified
CPT/HCPCS: 76700